=== PATIENT | female | born 1955 | race Caucasian/White ===

== ENCOUNTER 2017-05-13 11:10 | Emergency (ER) | payer MEDICAID ==
[~2017-05-13] VITALS: Ht 165.1 cm; Wt 72.6 kg
[2017-05-13 11:10] VITALS: BP 119/77; PULSE 67; RESP 12; TEMP 98.1; O2SAT 99
[~2017-05-13 11:10] MED LIST: ALPR0.2583 PO; AMLO5TAB4 PO; CIME300T55 PO; DIAZ-60 PO; FURO-150 PO; NORCO5 PO; OXYB5TAB PO; POTA10CA14 PO; PRED20TA PO; PROP20TA7 PO; SOM350 PO
[2017-05-13 11:52] LABS: CALCIUM 9.3 mg/dL (8.4-11.0); CREATININE 1.06 mg/dL (0.55-1.30)
[2017-05-13 11:55] LABS: PROTHROMBIN TIME 10.4 SECS (9.5-12.5)
[2017-05-13 11:57] LABS: ALBUMIN 3.8 g/dL (3.4-4.8); TOTAL BILIRUBIN 0.3 mg/dL (0.0-1.0)
[2017-05-13 11:58] LABS: BASOPHILS % (AUTO) 1.1 % (0.0-2.0); EOSINOPHILS # (AUTO) 0.2 K/uL (0.0-0.4); EOSINOPHILS % (AUTO) 5.3 % (0.0-4.0); HEMOGLOBIN 11.8 g/dL (12.0-16.0); LYMPHOCYTES # (AUTO) 1.3 K/uL (1.0-5.5); LYMPHOCYTES % (AUTO) 37.6 % (20.5-51.5); MEAN CORPUSCULAR HEMOGLOBIN 31 pg (27-31); MEAN CORPUSCULAR HGB CONC 34 % (32-36); MEAN CORPUSCULAR VOLUME 91 fL (79.0-98.0); MONOCYTES # (AUTO) 0.3 K/uL (0.0-1.0); MONOCYTES % (AUTO) 7.6 % (1.7-9.3); NEUTROPHILS # (AUTO) 1.7 K/uL (1.8-7.7); NEUTROPHILS % (AUTO) 48.4 % (40.0-70.0); PLATELET COUNT (AUTO) 143 K/uL (130-430); RED BLOOD CELL COUNT(AUTO) 3.84 MIL/uL (4.2-6.2); RED CELL DISTRIBUTION WIDTH 12.5 % (9.0-15.0); WHITE BLOOD COUNT (AUTO) 3.5 K/uL (4.8-10.8)
[2017-05-13] MEDS ORDERED: IPRATROPIUM/ALBUTEROL SULFATE 3 ML AMPUL.NEB INH ONE (12:30)
[2017-05-13] MEDS ORDERED: methylPREDNISolone SOD SUCC/PF 62.5 MG/ML VIAL IVP ONE (13:00)
[2017-05-13] MEDS ORDERED: NITROGLYCERIN 0.4 MG TAB.SUBL SL ONE (14:45)
[2017-05-13] MEDS ORDERED: GLUCAGON,HUMAN RECOMBINANT 1 MG VIAL IVP ONE (15:15)
[2017-05-13] MEDS ORDERED: LORazepam 2 MG/ML VIAL (FOR ER USE) IVP ONE (16:45)
[2017-05-13 18:40] VITALS: BP 124/57; PULSE 88; RESP 16; TEMP 97.9; O2SAT 97
== END 2017-05-13 18:40 | disposition short-term general hospital (02) ==
LOC: SED 11:28 → SIC 15:09 → UNDOADMIN 15:09 → UNDODISIN 16:50 → SED 18:40
DX: T17.200A Unspecified foreign body in pharynx causing asphyxiation, initial encounter (principal); K21.9 Gastro-esophageal reflux disease without esophagitis; I10 Essential (primary) hypertension; G35 Multiple sclerosis; X58.XXXA Exposure to other specified factors, initial encounter; Y93.89 Activity, other specified; Y92.89 Other specified places as the place of occurrence of the external cause; Y99.8 Other external cause status
CPT/HCPCS: 36415; 70360; 70486; 70490; 71010; 71250; 80053; 82550; 82962; 83605; 83880; 84145; 84484; 85025; 85379; 85610; 85730; 93005; 94640; 96374; 96375; 99285; J2060; J2930

== ENCOUNTER 2017-12-06 15:52 | Emergency (ER) | payer MEDICAID ==
[~2017-12-06] VITALS: Ht 165.1 cm; Wt 71.2 kg
[~2017-12-06 15:52] MED LIST changes: -ALPR0.2583 PO; -FURO-150 PO; -POTA10CA14 PO; -PROP20TA7 PO
[2017-12-06 16:00] VITALS: BP_SYST 101
[2017-12-06 17:10] LABS: BILIRUBIN,URINE 1+ (NEGATIVE); BLOOD, URINE NEGATIVE (NEGATIVE); CLARITY/URINE CLEAR (CLEAR); COLOR,URINE YELLOW (YELLOW); GLUCOSE,URINE NEGATIVE (NEGATIVE); KETONES,URINE NEGATIVE (NEGATIVE); LEUKOCYTE ESTERASE ,URINE NEGATIVE (NEGATIVE); NITRITE, URINE NEGATIVE (NEGATIVE); PH,URINE 5.5 (5.0-8.0); PROTEIN URINE NEGATIVE (NEGATIVE); UROBILINOGEN,URINE 0.2 (0.2-1.0)
[2017-12-06] MEDS ORDERED: KETOROLAC TROMETHAMINE 30 MG VIAL IM ONE (18:30)
[2017-12-06 19:34] VITALS: BP_SYST 112
== END 2017-12-06 19:28 | disposition home or self-care (01) ==
LOC: SED 15:52
DX: M54.6 Pain in thoracic spine (principal); M54.5 Low back pain; R39.81 Functional urinary incontinence; K21.9 Gastro-esophageal reflux disease without esophagitis; I10 Essential (primary) hypertension; Z79.899 Other long term (current) drug therapy; Z88.8 Allergy status to other drugs, medicaments and biological substances
CPT/HCPCS: 71045; 71100; 72100; 81003; 96372; 99285; J1885

== ENCOUNTER 2018-03-25 14:36 | Emergency (ER) | payer MEDICAID ==
[~2018-03-25] VITALS: Ht 165.1 cm; Wt 68.9 kg
[~2018-03-25 14:36] MED LIST changes: -DIAZ-60 PO; +DIAZ5TAB PO
[2018-03-25 14:47] VITALS: BP_SYST 97
--- NOTE | 2018-03-25 14:53 | NUR ---
Patient to ER bed 6 to gown for evaluation. Side rails up. Report given to Janey SALGUERO.
--- NOTE | 2018-03-25 14:57 | NUR ---
Pt complains of pain to left jaw for for a week. Pt states pain would come and go causing left side of face to hurt. Noted abcess to left side of mouth. Pt denies N/V or fever. No other injuries/complaints per patient or noted.
--- NOTE | 2018-03-25 14:58 | NUR ---
ER Dr. Lazo at bedside examining patient.
[2018-03-25] MEDS ORDERED: KETOROLAC TROMETHAMINE 60 MG/2 ML VIAL IM ONE (15:15)
[2018-03-25 15:35] LABS: BASOPHILS # (AUTO) 0.1 K/uL (0.0-0.2); BASOPHILS % (AUTO) 1.5 % (0.0-2.0); EOSINOPHILS # (AUTO) 0.1 K/uL (0.0-0.4); EOSINOPHILS % (AUTO) 2.5 % (0.0-4.0); HEMOGLOBIN 12.6 g/dL (12.0-16.0); LYMPHOCYTES # (AUTO) 1.2 K/uL (1.0-5.5); LYMPHOCYTES % (AUTO) 26.2 % (20.5-51.5); MEAN CORPUSCULAR HEMOGLOBIN 32 pg (27-31); MEAN CORPUSCULAR HGB CONC 34 % (32-36); MEAN CORPUSCULAR VOLUME 93 fL (79.0-98.0); MONOCYTES # (AUTO) 0.2 K/uL (0.0-1.0); MONOCYTES % (AUTO) 5.3 % (1.7-9.3); NEUTROPHILS # (AUTO) 2.8 K/uL (1.8-7.7); NEUTROPHILS % (AUTO) 64.5 % (40.0-70.0); PLATELET COUNT (AUTO) 195 K/uL (130-430); RED BLOOD CELL COUNT(AUTO) 3.99 MIL/uL (4.2-6.2); RED CELL DISTRIBUTION WIDTH 12.8 % (9.0-15.0); WHITE BLOOD COUNT (AUTO) 4.4 K/uL (4.8-10.8)
[2018-03-25 15:40] LABS: CALCIUM 9.5 mg/dL (8.4-11.0); CREATININE 1.04 mg/dL (0.55-1.30); POTASSIUM 3.9 mmol/L (3.5-5.1)
[2018-03-25 15:48] LABS: ALBUMIN 3.9 g/dL (3.4-4.8); TOTAL BILIRUBIN 0.4 mg/dL (0.0-1.0)
[2018-03-25] MEDS ORDERED: ONDANSETRON HCL 4 MG/2 ML VIAL ONE (15:52)
--- NOTE | 2018-03-25 15:54 | NUR ---
Medication was given, pt tolerated well. No adverse reaction, will continue to monitor.
[2018-03-25] MEDS ORDERED: ONDANSETRON HCL 4 MG/2 ML VIAL IVP ONE (16:00)
[2018-03-25] MEDS ORDERED: ONDANSETRON HCL 4 MG/2 ML VIAL IM ONE (16:00)
[2018-03-25 16:05] VITALS: BP_SYST 104
--- NOTE | 2018-03-25 16:05 | NUR ---
Patient given written and verbal discharge instructions and verbalizes understanding. ER MD discussed with patient the results and treatment provided. Patient in stable condition. ID arm band removed. Rx of Tylenol with codeine and Penicillin given. Patient educated on pain management and to follow up with PMD. Pain Scale 0. Opportunity for questions provided and answered. Medication side effect fact sheet provided.
== END 2018-03-25 16:05 | disposition home or self-care (01) ==
LOC: SED 14:36
DX: K02.9 Dental caries, unspecified (principal); R51 Headache; K21.9 Gastro-esophageal reflux disease without esophagitis; I10 Essential (primary) hypertension; M19.90 Unspecified osteoarthritis, unspecified site; Z90.49 Acquired absence of other specified parts of digestive tract; Z88.8 Allergy status to other drugs, medicaments and biological substances; Z79.899 Other long term (current) drug therapy
CPT/HCPCS: 36415; 80053; 85025; 96372; 99284; J1885; J2405

== ENCOUNTER 2018-11-09 13:12 | Emergency (ER) | payer MEDICARE, MEDICAID ==
[~2018-11-09] VITALS: Ht 165.1 cm; Wt 68.0 kg
[~2018-11-09 13:12] MED LIST changes: +LEVO500T89 PO
[2018-11-09 13:26] VITALS: BP_SYST 121
[2018-11-09] MEDS ORDERED: KETOROLAC TROMETHAMINE 30 MG VIAL IM ONE (14:00)
[2018-11-09 15:25] VITALS: BP_SYST 120
== END 2018-11-09 15:25 | disposition home or self-care (01) ==
LOC: SED 13:12
DX: S39.012A Strain of muscle, fascia and tendon of lower back, initial encounter (principal); K21.9 Gastro-esophageal reflux disease without esophagitis; I10 Essential (primary) hypertension; M19.90 Unspecified osteoarthritis, unspecified site; Z90.49 Acquired absence of other specified parts of digestive tract; Z88.8 Allergy status to other drugs, medicaments and biological substances; Z79.899 Other long term (current) drug therapy; X58.XXXA Exposure to other specified factors, initial encounter; Y93.89 Activity, other specified; Y92.89 Other specified places as the place of occurrence of the external cause; Y99.8 Other external cause status
CPT/HCPCS: 96372; 99283; J1885

== ENCOUNTER 2019-01-21 22:26 | Inpatient (IN) | payer MEDICAID, MEDICARE ==
[~2019-01-21] VITALS: Ht 165.1 cm; Wt 68.0 kg
[2019-01-21 22:26] VITALS: BP_SYST 136
[2019-01-21] MEDS ORDERED: NACL 0.9% 1,000 ML IV ONE (22:45)
[2019-01-21 23:37] LABS: ALANINE AMINOTRANSFERASE 64 U/L (12-78); ANION GAP 13 (5-15); ASPARTATE AMINOTRANSFERASE 77 U/L (10-37); CALCIUM 9.7 mg/dL (8.4-11.0); CHLORIDE 99 mmol/L (98-107); CREATININE 0.88 mg/dL (0.55-1.30); GLUCOSE 88 mg/dL (70-99); POTASSIUM 4.1 mmol/L (3.5-5.1); SODIUM SERUM 137 mmol/L (136-145); TOTAL BILIRUBIN 0.8 mg/dL (0.0-1.0); UREA NITROGEN, BLOOD 24 mg/dL (8-21)
[2019-01-21 23:40] LABS: BASOPHILS % (AUTO) 0.6 % (0.0-2.0); EOSINOPHILS % (AUTO) 0.9 % (0.0-4.0); GFR AFRICAN AMERICAN 83 mL/min (>90); HEMATOCRIT 38.1 % (36-48); HEMOGLOBIN 12.5 g/dL (12.0-16.0); LYMPHOCYTES # (AUTO) 0.7 K/uL (1.0-5.5); LYMPHOCYTES % (AUTO) 16.1 % (20.5-51.5); MEAN CORPUSCULAR HEMOGLOBIN 30 pg (27-31); MEAN CORPUSCULAR HGB CONC 33 % (32-36); MEAN CORPUSCULAR VOLUME 92 fL (79.0-98.0); MONOCYTES # (AUTO) 0.3 K/uL (0.0-1.0); MONOCYTES % (AUTO) 7.3 % (1.7-9.3); NEUTROPHILS # (AUTO) 3.2 K/uL (1.8-7.7); NEUTROPHILS % (AUTO) 75.1 % (40.0-70.0); PLATELET COUNT (AUTO) 196 K/uL (130-430); RED BLOOD CELL COUNT(AUTO) 4.14 MIL/uL (4.2-6.2); RED CELL DISTRIBUTION WIDTH 13.6 % (9.0-15.0); WHITE BLOOD COUNT (AUTO) 4.3 K/uL (4.8-10.8)
[2019-01-21] MEDS ORDERED: MORPHINE 4 MG/ML INJ. SYRINGE IVP ONE (23:45)
[2019-01-22 01:45] LABS: BILIRUBIN,URINE NEGATIVE (NEGATIVE); BLOOD, URINE NEGATIVE (NEGATIVE); CLARITY/URINE CLEAR (CLEAR); COLOR,URINE YELLOW (YELLOW); GLUCOSE,URINE NEGATIVE (NEGATIVE); KETONES,URINE 2+ (NEGATIVE); LEUKOCYTE ESTERASE ,URINE NEGATIVE (NEGATIVE); NITRITE, URINE NEGATIVE (NEGATIVE); PROTEIN URINE NEGATIVE (NEGATIVE); UROBILINOGEN,URINE 0.2 (0.2-1.0)
[2019-01-22 01:51] LABS: BENZODIAZEPINE, URINE POSITIVE (NEG <=150); METHAMPHETAMINES SCREEN,URINE POSITIVE (NEG <=500); OPIATE, URINE POSITIVE (NEG <=100); URINE AMPHETAMINE POSITIVE (NEG <=500)
[2019-01-22 01:52] LABS: BARBITURATE, URINE NEGATIVE (NEG <=200); CANNABINOID, URINE NEGATIVE (NEG <=50); COCAINE, URINE NEGATIVE (NEG <=150); PHENCYCLIDINE SCREEN,URINE NEGATIVE (NEG <=25); UR TRICYCLIC ANTIDEPRESSANTS NEGATIVE (NEG <=300); URINE METHADONE NEGATIVE (NEG <=200); URINE OXYCODONE SCREEN NEGATIVE (NEG <=100); URINE PROPOXYPHENE SCREEN NEGATIVE (NEG <=300)
[2019-01-22] MEDS ORDERED: FLUMAZENIL 0.1 MG/ML IVP ONE ×2 (02:00→02:45)
[2019-01-22] MEDS ORDERED: NACL 0.9% 1,000 ML IV ONE (02:15)
[2019-01-22 02:23] LABS: ALCOHOL, BLOOD < 3 mg/dL (<10)
[2019-01-22 02:24] LABS: ACETAMINOPHEN < 1 ug/mL (1-30)
[2019-01-22] MEDS: D5NS 1,000 ML IV SCH ×2 (04:39→15:19)
[2019-01-22 04:46] VITALS: BP_SYST 130
[2019-01-22 08:00] VITALS: BP_SYST 146
[2019-01-22 11:29] VITALS: BP_SYST 123
[2019-01-22] MEDS: MORPHINE 2 MG/ML INJ. SYRINGE IVP PRN (15:17)
[2019-01-22 15:48] VITALS: BP_SYST 153
[2019-01-22] MEDS ORDERED: LEVOFLOXACIN 500 MG TABLET PO ONE (16:45)
[2019-01-22 20:00] VITALS: BP_SYST 151
[2019-01-22] MEDS: OXYBUTYNIN CHLORIDE 5 MG TABLET PO SCH (21:23)
[2019-01-22] MEDS: metroNIDAZOLE 500 MG TABLET PO SCH (21:23)
[2019-01-22] MEDS: POLYETHYLENE GLYCOL 3350, 17 GM/ POWD.PACK PO SCH (21:25)
[2019-01-23 00:37] VITALS: BP_SYST 154
[2019-01-23] MEDS: D5NS 1,000 ML IV SCH ×3 (02:09→18:45)
[2019-01-23 08:05] VITALS: BP_SYST 151
[2019-01-23] MEDS: PANTOPRAZOLE SODIUM 40 MG TAB PO SCH (08:23)
[2019-01-23] MEDS: metroNIDAZOLE 500 MG TABLET PO SCH ×2 (08:23→22:51)
[2019-01-23] MEDS: PREDNISONE 20 MG TABLET PO SCH (08:23)
[2019-01-23] MEDS: POLYETHYLENE GLYCOL 3350, 17 GM/ POWD.PACK PO SCH ×2 (08:24→22:51)
[2019-01-23] MEDS: amLODIPine BESYLATE 5 MG TABLET PO SCH (08:24)
[2019-01-23] MEDS: OXYBUTYNIN CHLORIDE 5 MG TABLET PO SCH ×2 (08:24→22:51)
[2019-01-23] MEDS: LEVOFLOXACIN 500 MG TABLET PO SCH (10:32)
[2019-01-23 12:43] VITALS: BP_SYST 145
[2019-01-23 15:34] VITALS: BP_SYST 144
[2019-01-23] MEDS ORDERED: COMMUNICATION ORDER XX ONE (17:15)
[2019-01-23 19:25] VITALS: BP_SYST 134
[2019-01-23] MEDS: MICONAZOLE NITRATE 85 GM TP SCH (21:00)
[2019-01-23] MEDS: DIAZEPAM 5 MG TABLET (VALIUM) PO SCH (22:51)
[2019-01-23] MEDS: MORPHINE 2 MG/ML INJ. SYRINGE IVP PRN (23:35)
[2019-01-24 01:42] VITALS: BP_SYST 147
[2019-01-24] MEDS: D5NS 1,000 ML IV SCH ×2 (05:15→14:45)
[2019-01-24 08:05] VITALS: BP_SYST 138
[2019-01-24] MEDS: PREDNISONE 20 MG TABLET PO SCH (08:28)
[2019-01-24] MEDS: amLODIPine BESYLATE 5 MG TABLET PO SCH (08:28)
[2019-01-24] MEDS: PANTOPRAZOLE SODIUM 40 MG TAB PO SCH (08:28)
[2019-01-24] MEDS: metroNIDAZOLE 500 MG TABLET PO SCH ×2 (08:29→21:48)
[2019-01-24] MEDS: POLYETHYLENE GLYCOL 3350, 17 GM/ POWD.PACK PO SCH ×2 (08:29→21:48)
[2019-01-24] MEDS: OXYBUTYNIN CHLORIDE 5 MG TABLET PO SCH ×2 (08:29→21:48)
[2019-01-24] MEDS: LEVOFLOXACIN 500 MG TABLET PO SCH (11:04)
[2019-01-24 11:24] VITALS: BP_SYST 146
[2019-01-24 15:29] VITALS: BP_SYST 141
[2019-01-24 19:20] VITALS: BP_SYST 140
[2019-01-24] MEDS: MICONAZOLE NITRATE 85 GM TP SCH (21:48)
[2019-01-25 01:02] VITALS: BP_SYST 138
[2019-01-25 08:00] VITALS: BP_SYST 135
[2019-01-25] MEDS: metroNIDAZOLE 500 MG TABLET PO SCH ×2 (08:48→20:17)
[2019-01-25] MEDS: PREDNISONE 20 MG TABLET PO SCH (08:49)
[2019-01-25] MEDS: PANTOPRAZOLE SODIUM 40 MG TAB PO SCH (08:49)
[2019-01-25] MEDS: OXYBUTYNIN CHLORIDE 5 MG TABLET PO SCH ×2 (08:49→20:17)
[2019-01-25] MEDS: POLYETHYLENE GLYCOL 3350, 17 GM/ POWD.PACK PO SCH ×3 (08:50→20:19)
[2019-01-25] MEDS: amLODIPine BESYLATE 5 MG TABLET PO SCH (08:51)
[2019-01-25] MEDS: MICONAZOLE NITRATE 85 GM TP SCH ×2 (08:52→20:21)
[2019-01-25 12:00] VITALS: BP_SYST 132
[2019-01-25] MEDS: LEVOFLOXACIN 500 MG TABLET PO SCH (12:28)
[2019-01-25 16:00] VITALS: BP_SYST 139
[2019-01-25 19:45] VITALS: BP_SYST 151
[2019-01-26 00:34] VITALS: BP_SYST 135
[2019-01-26 08:00] VITALS: BP_SYST 142
[2019-01-26] MEDS: POLYETHYLENE GLYCOL 3350, 17 GM/ POWD.PACK PO SCH (09:00)
[2019-01-26] MEDS: PANTOPRAZOLE SODIUM 40 MG TAB PO SCH (09:17)
[2019-01-26] MEDS: PREDNISONE 20 MG TABLET PO SCH (09:17)
[2019-01-26] MEDS: metroNIDAZOLE 500 MG TABLET PO SCH (09:17)
[2019-01-26] MEDS: OXYBUTYNIN CHLORIDE 5 MG TABLET PO SCH (09:17)
[2019-01-26] MEDS: MICONAZOLE NITRATE 85 GM TP SCH (09:18)
[2019-01-26] MEDS: amLODIPine BESYLATE 5 MG TABLET PO SCH (09:18)
[2019-01-26] MEDS: DIAZEPAM 5 MG TABLET (VALIUM) PO SCH (09:19)
[2019-01-26] MEDS: LEVOFLOXACIN 500 MG TABLET PO SCH (09:20)
[2019-01-26 12:00] VITALS: BP_SYST 135
[2019-01-26 14:36] VITALS: BP_SYST 141
[2019-01-26 16:00] VITALS: BP_SYST 143
== END 2019-01-26 19:05 | disposition home health service (06) | DRG 249 ==
LOC: SED 22:26 → STU 01-22 02:32 → SMU 01-22 11:48
PROVIDERS: ADMIT Internal Medicine; ATTEND Internal Medicine
DX: K52.9 Noninfective gastroenteritis and colitis, unspecified (principal); G35 Multiple sclerosis; F15.129 Other stimulant abuse with intoxication, unspecified; R63.0 Anorexia; H35.30 Unspecified macular degeneration; I10 Essential (primary) hypertension; R63.4 Abnormal weight loss; K21.9 Gastro-esophageal reflux disease without esophagitis; M19.90 Unspecified osteoarthritis, unspecified site; M41.9 Scoliosis, unspecified; Z68.25 Body mass index [BMI] 25.0-25.9, adult; E86.0 Dehydration; Z90.49 Acquired absence of other specified parts of digestive tract; Z88.9 Allergy status to unspecified drugs, medicaments and biological substances
CPT/HCPCS: 36415; 70450-TC; 80053; 80307; 81003; 82607; 83605; 84443-TC; 84484; 85025; 87040-TC; 87086; 96361; 96374; 96375; 97110-GP; 97116-GP; 97530-GP; 99285; G0480; G0481; G0482; J2270; J3490; J7042; J7512

== ENCOUNTER 2019-09-30 02:02 | Emergency (ER) | payer MEDICAID, MEDICARE, OTHER ==
[~2019-09-30] VITALS: Ht 160 cm; Wt 59.4 kg
[2019-09-30 02:33] VITALS: BP_SYST 130
--- NOTE | 2019-09-30 02:36 | NUR ---
Patient triaged and placed on EMS gurney. VSS and patient appears in no acute distress at this time. Accompanied by EMS, awaiting available bed, and MD notified of need for MSE.
--- NOTE | 2019-09-30 02:54 | NUR ---
Patient to ER bed 04 for evaluation. Side rails up.
--- NOTE | 2019-09-30 02:55 | NUR ---
Pt BIB EMS from home with c/o redness and pain to bilateral hands. Pt A&Ox4. Pt states history of multiple sclerosis. Pt states "this is probably a flare up from my MS." Pt states pain 6/10 to bilateral hands. Upon assessment, pt presents with red discoloration to all ten finger tips. Pt denies SOB, nausea, vomiting, fever, chills and chest pain. Pt has clear bilateral breath sounds with no use of accessory muscles. Will continue to monitor.
--- NOTE | 2019-09-30 03:45 | NUR ---
ER at bedside examining patient.
[2019-09-30] MEDS ORDERED: IPRATROPIUM/ALBUTEROL SULFATE 3 ML AMPUL.NEB (DUONEB) INH ONE (04:00)
--- NOTE | 2019-09-30 04:10 | NUR ---
lab at bedside.
[2019-09-30 04:38] LABS: HEMATOCRIT 37.1 % (36-48); HEMOGLOBIN 12.1 g/dL (12.0-16.0); MEAN CORPUSCULAR HEMOGLOBIN 30 pg (27-31); MEAN CORPUSCULAR HGB CONC 33 % (32-36); MEAN CORPUSCULAR VOLUME 93 fL (79.0-98.0); PLATELET COUNT (AUTO) 164 K/uL (130-430); RED CELL DISTRIBUTION WIDTH 14.9 % (9.0-15.0); WHITE BLOOD COUNT (AUTO) 2.7 K/uL (4.8-10.8)
[2019-09-30 04:43] LABS: CALCIUM 9.5 mg/dL (8.4-11.0); CREATININE 0.95 mg/dL (0.55-1.30)
[2019-09-30 04:50] LABS: ALBUMIN 3.8 g/dL (3.4-4.8); TOTAL BILIRUBIN 0.7 mg/dL (0.0-1.0)
--- NOTE | 2019-09-30 04:59 | NUR ---
Pt provided warm blanket for comfort.
--- NOTE | 2019-09-30 05:13 | NUR ---
Pt assisted with ambulation to restroom in stable condition.
[2019-09-30 05:18] LABS: BASOPHILS % (MANUAL) 0 % (0-2); EOSINOPHILS % (MANUAL) 2 % (0-7); LYMPHOCYTES % (MANUAL) 30 % (20-46); MONOCYTES % (MANUAL) 12 % (0-11)
--- NOTE | 2019-09-30 06:22 | NUR ---
Pt requests jello. Per MD Nino, pt allowed jello consumption. Jello provided to pt.
--- NOTE | 2019-09-30 06:50 | NUR ---
ER Dr. Nino at bedside explaining results to patient.
[2019-09-30 07:26] VITALS: BP_SYST 140
--- NOTE | 2019-09-30 07:26 | NUR ---
Patient given written and verbal discharge instructions and verbalizes understanding. ER MD Nino discussed with patient the results and treatment provided. Patient in stable condition. ID arm band removed. No Rx given. Patient educated on pain management and to follow up with PMD. Pain Scale 3/10. Opportunity for questions provided and answered. Medication side effect fact sheet provided.
== END 2019-09-30 07:26 | disposition home or self-care (01) ==
LOC: SED 02:02
DX: I73.00 Raynaud's syndrome without gangrene (principal); G35 Multiple sclerosis; I10 Essential (primary) hypertension; K21.9 Gastro-esophageal reflux disease without esophagitis; Z88.8 Allergy status to other drugs, medicaments and biological substances; Z79.899 Other long term (current) drug therapy
CPT/HCPCS: 36415; 71045; 80053; 85007; 85027; 93005; 94640; 99285; J7620

== ENCOUNTER 2020-02-13 21:34 | Inpatient (IN) | payer OTHER ==
[~2020-02-13] VITALS: Ht 165.1 cm; Wt 53.5 kg
[~2020-02-13 21:34] MED LIST changes: +CEPH-568 PO; +LEVE500T53 PO; -LEVO500T89 PO; -SOM350 PO
--- NOTE | 2020-02-13 21:46 | NUR ---
Placed in room 1 . Placed on electronic device monitor, blood pressure machine and pulse oximeter. To gown for exam. Side rails up. Report given to IRVIN SALGUERO.
[2020-02-13 21:49] VITALS: BP_SYST 92
--- NOTE | 2020-02-13 22:03 | NUR ---
RECEIVED AND IN ROOM, VICENTA TO ASSUME CARE.
--- NOTE | 2020-02-13 22:04 | NUR ---
EKG IN PROGRESS
--- NOTE | 2020-02-13 22:30 | NUR ---
PLACED IN HARD C-COLLAR/TOLERATED WELL. PT IV HL 20 GUAGE RT AC. LABS SENT
--- NOTE | 2020-02-13 22:47 | NUR ---
SENT TO CAT SCAN
[2020-02-13 22:53] LABS: BASOPHILS % (AUTO) 0.8 % (0.0-2.0); EOSINOPHILS # (AUTO) 0.1 K/uL (0.0-0.4); EOSINOPHILS % (AUTO) 1.4 % (0.0-4.0); HEMATOCRIT 40.8 % (36-48); HEMOGLOBIN 13.5 g/dL (12.0-16.0); LYMPHOCYTES # (AUTO) 1.2 K/uL (1.0-5.5); LYMPHOCYTES % (AUTO) 30.8 % (20.5-51.5); MEAN CORPUSCULAR HEMOGLOBIN 31 pg (27-31); MEAN CORPUSCULAR HGB CONC 33 % (32-36); MEAN CORPUSCULAR VOLUME 94 fL (79.0-98.0); MONOCYTES # (AUTO) 0.3 K/uL (0.0-1.0); MONOCYTES % (AUTO) 8.4 % (1.7-9.3); NEUTROPHILS # (AUTO) 2.3 K/uL (1.8-7.7); NEUTROPHILS % (AUTO) 58.6 % (40.0-70.0); PLATELET COUNT (AUTO) 124 K/uL (130-430); RED BLOOD CELL COUNT(AUTO) 4.35 MIL/uL (4.2-6.2); WHITE BLOOD COUNT (AUTO) 3.9 K/uL (4.8-10.8)
--- NOTE | 2020-02-13 22:56 | NUR ---
BACK FROM CT ,NO CHANGE IN MENTATION, PERRL, AAOX3
[2020-02-13 23:05] LABS: ANION GAP 6 (5-15); CALCIUM 10.1 mg/dL (8.4-11.0); CHLORIDE 102 mmol/L (98-107); CREATININE 1.08 mg/dL (0.55-1.30); GLUCOSE 88 mg/dL (70-99); POTASSIUM 3.7 mmol/L (3.5-5.1); PROTHROMBIN TIME 9.7 SECS (9.5-12.5); SODIUM SERUM 139 mmol/L (136-145); UREA NITROGEN, BLOOD 24 mg/dL (8-21)
[2020-02-13 23:21] LABS: ALANINE AMINOTRANSFERASE 43 U/L (12-78); ALBUMIN 4.5 g/dL (3.4-4.8); ASPARTATE AMINOTRANSFERASE 87 U/L (10-37); FREE T4 (FREE THYROXINE) 1.4 ng/dl (0.8-1.5); THYROID STIMULATING HORMONE 1.79 uIu/mL (0.36-3.74); TOTAL BILIRUBIN 1.2 mg/dL (0.0-1.0)
[2020-02-13 23:22] LABS: ACETAMINOPHEN < 1 ug/mL (1-30); ALCOHOL, BLOOD < 3 mg/dL (<10); GFR AFRICAN AMERICAN 65 mL/min (>90)
[2020-02-14 00:08] LABS: CKMB RELATIVE INDEX 3.8 (0.0-2.9); CREATINE KINASE MB 72.5 ng/mL (0-3.6)
--- NOTE | 2020-02-14 00:34 | NUR ---
CELIAAR REPORT TO MIGUEL
[2020-02-14] MEDS ORDERED: NACL 0.9% 1,000 ML IV ONE (01:15)
--- NOTE | 2020-02-14 01:41 | NUR ---
PT REMAINS IN STABLE CONDITION WITH URINE SAMPLE SENT TO LAB
[2020-02-14] MEDS ORDERED: ACETAMINOPHEN 325 MG TABLET PO PRN (01:45)
[2020-02-14] MEDS ORDERED: LORazepam 2 MG/ML VIAL IVP PRN (01:45)
[2020-02-14] MEDS ORDERED: MORPHINE 2 MG/ML INJ. SYRINGE IVP PRN ×2 (01:45)
[2020-02-14] MEDS ORDERED: methylPREDNISolone SOD SUCC 40 MG/ML VIAL IVP ONE (01:45)
[2020-02-14 01:46] LABS: BILIRUBIN,URINE NEGATIVE (NEGATIVE); BLOOD, URINE 1+ (NEGATIVE); CLARITY/URINE CLEAR (CLEAR); COLOR,URINE YELLOW (YELLOW); GLUCOSE,URINE NEGATIVE (NEGATIVE); KETONES,URINE NEGATIVE (NEGATIVE); LEUKOCYTE ESTERASE ,URINE NEGATIVE (NEGATIVE); NITRITE, URINE NEGATIVE (NEGATIVE); PROTEIN URINE NEGATIVE (NEGATIVE); UROBILINOGEN,URINE 0.2 (0.2-1.0)
[2020-02-14 02:03] LABS: BARBITURATE, URINE NEGATIVE (NEG <=200); BENZODIAZEPINE, URINE POSITIVE (NEG <=150); CANNABINOID, URINE NEGATIVE (NEG <=50); COCAINE, URINE NEGATIVE (NEG <=150); METHAMPHETAMINES SCREEN,URINE POSITIVE (NEG <=500); OPIATE, URINE NEGATIVE (NEG <=100); PHENCYCLIDINE SCREEN,URINE NEGATIVE (NEG <=25); UR TRICYCLIC ANTIDEPRESSANTS NEGATIVE (NEG <=300); URINE AMPHETAMINE POSITIVE (NEG <=500); URINE METHADONE NEGATIVE (NEG <=200); URINE OXYCODONE SCREEN NEGATIVE (NEG <=100); URINE PROPOXYPHENE SCREEN NEGATIVE (NEG <=300)
[2020-02-14 02:15] LABS: BACTERIA,URINE FEW /HPF (None Seen); WBC,URINE 0-3 /HPF (0-3)
[2020-02-14] MEDS ORDERED: methylPREDNISolone SOD SUCC 40 MG/ML VIAL ONE (02:46)
--- NOTE | 2020-02-14 02:50 | NUR ---
VSS WITH HR REMAINS BRADYCARDIC AT HIGH 40'S TO LOW 50'S HOWEVER ASYMPTOMATIC
--- NOTE | 2020-02-14 03:55 | NUR ---
REPOSITIONED PT FOR COMFORT AND PRESSURE RELIEF
--- NOTE | 2020-02-14 04:06 | NUR ---
LAB BEDSIDE FOR IN PT AM LAB DRAW
[2020-02-14 04:36] LABS: EOSINOPHILS # (AUTO) 0.1 K/uL (0.0-0.4); EOSINOPHILS % (AUTO) 3.8 % (0.0-4.0); HEMATOCRIT 36.5 % (36-48); HEMOGLOBIN 12.1 g/dL (12.0-16.0); LYMPHOCYTES # (AUTO) 1.1 K/uL (1.0-5.5); LYMPHOCYTES % (AUTO) 36.6 % (20.5-51.5); MEAN CORPUSCULAR HEMOGLOBIN 31 pg (27-31); MEAN CORPUSCULAR HGB CONC 33 % (32-36); MEAN CORPUSCULAR VOLUME 93 fL (79.0-98.0); MONOCYTES # (AUTO) 0.4 K/uL (0.0-1.0); MONOCYTES % (AUTO) 12.9 % (1.7-9.3); NEUTROPHILS # (AUTO) 1.4 K/uL (1.8-7.7); NEUTROPHILS % (AUTO) 45.7 % (40.0-70.0); PLATELET COUNT (AUTO) 96 K/uL (130-430); RED BLOOD CELL COUNT(AUTO) 3.93 MIL/uL (4.2-6.2); RED CELL DISTRIBUTION WIDTH 14.2 % (9.0-15.0)
[2020-02-14 05:02] LABS: ALBUMIN 3.5 g/dL (3.4-4.8); CALCIUM 9.4 mg/dL (8.4-11.0); CREATININE 0.95 mg/dL (0.55-1.30); POTASSIUM 3.2 mmol/L (3.5-5.1); TOTAL BILIRUBIN 0.8 mg/dL (0.0-1.0)
[2020-02-14 05:44] LABS: CKMB RELATIVE INDEX 3.7 (0.0-2.9)
--- NOTE | 2020-02-14 07:38 | NUR ---
Pt asleep at this time, VSS, no apparent distress noted
[2020-02-14] MEDS ORDERED: POTASSIUM CHLORIDE 40 MEQ, LIDOCAINE JECT 2% PF 100 MG 50 MG in NS 250 ML IV ONE (07:45)
[2020-02-14] MEDS: levETIRAcetam 500 MG TABLET PO SCH ×2 (09:53→22:15)
--- NOTE | 2020-02-14 09:59 | NUR ---
Patient will be admitted to care [facility]. Admitted to Tele unit. Will go to room 113B. Belongings list completed. Complete and up to date summary report printed. SBAR report to be given at bedside with opportunity for questions.
--- NOTE | 2020-02-14 10:07 | NUR ---
ADMISSION NOTE Received patient from ER via alejandro, received report from EDOUARD/ NOEMY. Patient admitted with diagnosis of ALTERED MENTAL STATUS. Patient oriented to hospital routine, call light, toileting and safety-patient verbalized understanding.
[2020-02-14 10:24] VITALS: BP_SYST 123
[2020-02-14 10:29] VITALS: BP_SYST 123
--- NOTE | 2020-02-14 11:29 | NUR ---
CONSULTATION PAGED/CALLED Reason for Consultation: [] AMS Person Who was Notified: [] TEXTED MD DIRECTLY Consulting Physician: [] DR Vannessa MATTA Truck Driving Instructor Specialty: [] NEURO Ordering Physician: [] DR LOVE
--- NOTE | 2020-02-14 11:47 | NUR ---
Spoke to Dr. Srivastava: Spoke to Dr. Srivastava over the phone. Notified MD of patient's anxiety. New order received. RN to input. Addendum: 02/15/20 at 0629 by Mary Jo Decker RN Wrong time: 02/14/2020 at 5985
--- NOTE | 2020-02-14 12:00 | NUR ---
nurse note Patient in bed, respirations even non labored, ivf running as ordered, bed in low and locked position, call light within reach
--- NOTE | 2020-02-14 13:30 | NUR ---
nurse note patient complaining of anxiety, requesting medication
[2020-02-14] MEDS: POTASSIUM CHLORIDE 10 MEQ in NACL 0.9% 1,000 ML IV SCH (15:35)
--- NOTE | 2020-02-14 15:38 | NUR ---
nurse note patient in bed, sleeping, respirations even non labored, bed in low and locked position, call light within reach, bed alarm on
[2020-02-14 15:52] VITALS: BP_SYST 106
[2020-02-14 16:00] VITALS: BP_SYST 123
--- NOTE | 2020-02-14 17:00 | NUR ---
nurse note patient in bed, respirations even, non labored, bed in low and locked position, call light within reach, bed alarm on
--- NOTE | 2020-02-14 18:19 | NUR ---
md rounds DR MOSS BEDSIDE EXAMINING PATIENT
--- NOTE | 2020-02-14 19:14 | NUR ---
closing note provided bedside sbar to night RN, patient in bed, respirations even non labored, bed in low and locked position, call light within reach, bed alarm on, ivf running as ordered, endorsed care to night RN
--- NOTE | 2020-02-14 19:30 | NUR ---
Initial note: Received report from pasquale RN. Patient is in bed resting. No signs of acute distress. Even, nonlabored breathing on room air. IV site is patent and intact. IV fluids infusing as ordered. Bed is locked at lowest position. Side rails up x2. Call light with patient. Seizure, safety, and fall precautions in place. Will continue plan of care.
[2020-02-14 20:00] VITALS: BP_SYST 131
[2020-02-14] MEDS: ONDANSETRON HCL 4 MG/2 ML VIAL IVP PRN (21:13)
--- NOTE | 2020-02-14 21:13 | NUR ---
Pain/Anxiety: Patient complained of moderate generalized pain and nausea. [place] 5-325 1 tab and Zofran 4mg IV push indicated. Educated patient on indications and side effects of medications. Patient verbalized understanding. Medication administered per MD order. Call light is with patient. Seizure, safety, and fall precautions in place. Will continue to monitor.
[2020-02-14] MEDS: HYDROcodone/ACETAMIN 5-325 MG TAB (NORCO/ VICODIN) PO PRN (21:14)
--- NOTE | 2020-02-14 23:47 | NUR ---
Spoke to Dr. Srivastava: Spoke to Dr. Srivastava over the phone. Notified MD of patient's anxiety. New order received. RN to input.
[2020-02-15] MEDS ORDERED: LORazepam 1 MG TABLET PO ONE
[2020-02-15 01:14] VITALS: BP_SYST 123
--- NOTE | 2020-02-15 02:00 | NUR ---
Rounds: Patient is in bed resting. No signs of acute distress. Breathing is even and nonlabored on room air. Call light is with patient. Safety and fall precautions in place. Will continue plan of care.
[2020-02-15] MEDS: HYDROcodone/ACETAMIN 5-325 MG TAB (NORCO/ VICODIN) PO PRN ×4 (03:26→21:23)
--- NOTE | 2020-02-15 03:35 | NUR ---
Pain: Patient complained of moderate generalized pain. [place] 5-325 1 tab indicated. Education provided regarding indications and side effects. Patient verbalized understanding. Medication administered per MD order. Call light is with patient. Safety, fall, seizure precautions in place. Will continue monitoring.
[2020-02-15] MEDS: POTASSIUM CHLORIDE 10 MEQ in NACL 0.9% 1,000 ML IV SCH ×4 (03:36→21:03)
[2020-02-15] MEDS ORDERED: KCL 20 mEq in 100 mL (PREMIX) 100 ML IV ONE (03:48)
--- NOTE | 2020-02-15 05:00 | NUR ---
Rounds: Patient is in bed resting. No acute distress. Respiration are even and nonlabored on room air. Call light is with patient. Seizure safety and fall precautions in place. Will continue plan of care.
--- NOTE | 2020-02-15 06:32 | NUR ---
Closing note: Patient is in bed resting. No acute distress. Respiration are even and nonlabored on room air. IV site is patent and intact. IVF infusing well. All needs met. Bed is locked at lowest position. Side rails up x2. Call light is with patient. Seizure safety and fall precautions in place. Will endorse care to dayshift RN.
[2020-02-15 08:50] LABS: BASOPHILS % (AUTO) 0.9 % (0.0-2.0); EOSINOPHILS % (AUTO) 1.4 % (0.0-4.0); HEMATOCRIT 33.5 % (36-48); LYMPHOCYTES # (AUTO) 1.5 K/uL (1.0-5.5); LYMPHOCYTES % (AUTO) 49.8 % (20.5-51.5); MEAN CORPUSCULAR HEMOGLOBIN 31 pg (27-31); MEAN CORPUSCULAR HGB CONC 33 % (32-36); MEAN CORPUSCULAR VOLUME 93 fL (79.0-98.0); MONOCYTES # (AUTO) 0.3 K/uL (0.0-1.0); MONOCYTES % (AUTO) 9.2 % (1.7-9.3); NEUTROPHILS # (AUTO) 1.2 K/uL (1.8-7.7); NEUTROPHILS % (AUTO) 38.7 % (40.0-70.0); PLATELET COUNT (AUTO) 111 K/uL (130-430); RED CELL DISTRIBUTION WIDTH 14.5 % (9.0-15.0)
[2020-02-15 08:59] LABS: CALCIUM 8.8 mg/dL (8.4-11.0); CREATININE 0.84 mg/dL (0.55-1.30)
[2020-02-15] MEDS: FAMOTIDINE 20 MG TABLET PO SCH (09:24)
[2020-02-15] MEDS: levETIRAcetam 500 MG TABLET PO SCH ×2 (09:24→20:33)
[2020-02-15] MEDS: PREDNISONE 20 MG TABLET PO SCH (09:24)
[2020-02-15 10:11] LABS: CKMB RELATIVE INDEX 3.3 (0.0-2.9); CREATINE KINASE MB 18.2 ng/mL (0-3.6)
[2020-02-15 12:19] VITALS: BP_SYST 129
--- NOTE | 2020-02-15 14:51 | NUR ---
alert, oriented, clear speech, claimed in pain, when asked where the pain was, " all over the place, can you imagine"? demands meds for muscle spasm, and anxiety " I am nervous, I am scared". NORCO one po given at 0915am. called [phone], [facility] about [facility] , the [facility] closed today 1500. c/o of pain, this time both here hands, one po [place] given appetite for breakfast 75%, lunch 25% because no upper denture claimed she cant walk , with minimal assistance, she out of bed, [place] [facility] [place] difficulty.
[2020-02-15] MEDS: LORazepam 1 MG TABLET PO PRN ×2 (15:12→23:39)
[2020-02-15] MEDS: BACLOFEN 10 MG TABLET PO SCH (15:13)
--- NOTE | 2020-02-15 15:55 | NUR ---
P.T. NOTES P.T. EVAL COMPLETED; REFER TO EVAL FOR DETAILS; Pt LIVES W/ SISTER, WILL BENEFIT W/ P.T. DURING ACUTE STAY, FWW FOR HOME USE.
[2020-02-15 16:15] VITALS: BP_SYST 133
--- NOTE | 2020-02-15 17:03 | NUR ---
1514 again, complained of pain, " all over my body, plus i have muscle spasm right now- despite the fact [facility] per [facility], scheduled at 2100, author took the liberty to give her first dose now One po [place] also , and Ativan 0.5mg given. " I am happy now, fell asleep afterwards". Encouraged to get out of bed, and uses bsc, with standby assist, as tolerated, compliant with care
--- NOTE | 2020-02-15 19:30 | NUR ---
OPENING NOTES RECEIVED SBAR REPORT FROM DAY SHIFT RN. PT RESTING IN BED, ALERT & ORIENTED X4. BREATHING EVEN AND UNLABORED TO ROOM AIR. NO S/S OF DISTRESS NOTED. IVF RUNNING ORDERED RATE, NO S/S OF INFILTRATION NOTED. PADDED SIDE RAILS UP. CALL LIGHT WITHIN REACH. SAFETY AND FALL PRECAUTIONS ARE IN PLACE. WILL CONTINUE TO MONITOR.
[2020-02-15 20:00] VITALS: BP_SYST 134
--- NOTE | 2020-02-15 20:33 | NUR ---
MEDICATION PASS SCHEDULED MEDICATIONS ADMINISTERED ORDERED. DISCUSSED MEDICATION ACTION AND POTENTIAL SIDE EFFECTS. PT VERBALIZED UNDERSTANDING. ASSISTED PT TO BEDSIDE COMMODE, PT BACK TO BED SAFELY. BREATHING EVEN AND UNLABORED TO ROOM AIR. BED ALARM ON, LOCKED IN LOWEST LEVEL. PADDED SIDE RAILS UP. CALL LIGHT WITHIN REACH. SAFETY AND FALL PRECAUTIONS ARE IN PLACE. WILL CONTINUE TO MONITOR.
--- NOTE | 2020-02-15 21:23 | NUR ---
PAIN/NORCO MEDICATION PT REPORTING GENERALIZED PAIN. ADMINISTERED NORCO ORDERED PRN. DISCUSSED MEDICATION ACTIONS AND POTENTIAL SIDE EFFECTS. PT VERBALIZED UNDERSTANDING. NO S/S OF SOB, BREATHING EVEN AND UNLABORED TO ROOM AIR. PADDED SIDE RAILS UP. BED ALARM ON. SAFETY AND FALL PRECAUTIONS MAINTAINED. WILL CONTINUE TO MONITOR.
--- NOTE | 2020-02-15 23:39 | NUR ---
ATIVAN/ANXIETY ADMINISTERED ATIVAN ORDERED PRN. DISCUSSED MEDICATION ACTIONS AND POTENTIAL SIDE EFFECTS. PT VERBALIZED UNDERSTANDING. BREATHING EVEN AND UNLABORED TO ROOM AIR. PADDED SIDE RAILS UP. BED ALARM ON, LOCKED IN LOWEST LEVEL. SAFETY AND FALL PRECAUTIONS MAINTAINED. WILL CONTINUE TO MONITOR.
--- NOTE | 2020-02-16 01:55 | NUR ---
RN ROUNDS PT RESTING IN BED. CHEST RISE AND FALL SYMMETRICAL. NO S/S OF DISTRESS NOTED AT THIS TIME. ASSISTED PT TO BESIDE COMMODE, PT BACK TO BED SAFELY. IVF RUNNING ORDERED RATE. NO S/S OF INFILTRATION NOTED. CALL LIGHT WITHIN REACH. BED ALARM ON. SAFETY AND FALL PRECAUTIONS ARE IN PLACE. WILL CONTINUE TO MONITOR.
[2020-02-16 02:27] VITALS: BP_SYST 138
--- NOTE | 2020-02-16 04:05 | NUR ---
RESTING PT RESTING IN BED. BREATHING EVEN AND UNLABORED TO ROOM AIR. NO S/S OF DISTRESS NOTED AT THIS TIME. IVF RUNNING ORDERED RATE. NO S/S OF INFILTRATION NOTED. CALL LIGHT WITHIN REACH. BED ALARM ON. SAFETY AND FALL PRECAUTIONS ARE IN PLACE. WILL CONTINUE TO MONITOR.
[2020-02-16] MEDS: POTASSIUM CHLORIDE 10 MEQ in NACL 0.9% 1,000 ML IV SCH ×2 (06:14→21:45)
--- NOTE | 2020-02-16 06:45 | NUR ---
CLOSING NOTES PT RESTING IN BED. BREATHING EVEN AND UNLABORED TO ROOM AIR. NO S/S OF DISTRESS NOTED. IVF RUNNING ORDERED RATE, NO S/S OF INFILTRATION NOTED. PADDED SIDE RAILS UP. CALL LIGHT WITHIN REACH. SAFETY AND FALL PRECAUTIONS ARE IN PLACE. ALL NEEDS ARE MET THROUGHOUT SHIFT. WILL CONTINUE TO MONITOR UNTIL ENDORSE TO DAY SHIFT RN.
[2020-02-16 08:00] VITALS: BP_SYST 143
--- NOTE | 2020-02-16 08:00 | NUR ---
awake,alert,c/o severe headache,BP elevated to 143/99,IVF continue infusing,give norco 1 tab po as prn order for pain needs attended.call light & personal items within pt reach,safety maintained.continue to monitor pt.
[2020-02-16 08:40] LABS: CALCIUM 8.9 mg/dL (8.4-11.0); CREATININE 0.88 mg/dL (0.55-1.30); POTASSIUM 4.1 mmol/L (3.5-5.1)
[2020-02-16] MEDS: levETIRAcetam 500 MG TABLET PO SCH ×2 (08:42→21:44)
[2020-02-16] MEDS: BACLOFEN 10 MG TABLET PO SCH ×2 (08:42→21:44)
[2020-02-16] MEDS: HYDROcodone/ACETAMIN 5-325 MG TAB (NORCO/ VICODIN) PO PRN ×3 (08:42→22:10)
[2020-02-16] MEDS: PREDNISONE 20 MG TABLET PO SCH (08:43)
[2020-02-16] MEDS: FAMOTIDINE 20 MG TABLET PO SCH (08:43)
[2020-02-16 09:05] LABS: CKMB RELATIVE INDEX 1.7 (0.0-2.9); CREATINE KINASE MB 4.3 ng/mL (0-3.6)
--- NOTE | 2020-02-16 10:00 | NUR ---
pt is anxious and asking for prn meds,give ativan 0.5mg po as prn order for anxiety.
[2020-02-16] MEDS: LORazepam 1 MG TABLET PO PRN ×2 (10:20→18:34)
--- NOTE | 2020-02-16 12:00 | NUR ---
c/o nausea,give zofran 4 mg IV as prn order for nausea, here and obtained order for d/c pt home with home PT and walker.
[2020-02-16] MEDS: ONDANSETRON HCL 4 MG/2 ML VIAL IVP PRN (12:02)
--- NOTE | 2020-02-16 12:18 | NUR ---
Dietitian Recommendations * Recommend continuing 2gm Na, Mechanical Soft diet * Encourage PO intakes Please see Nutrition Assessment for details. SS, RD
[2020-02-16 12:23] VITALS: BP_SYST 137
[2020-02-16] MEDS ORDERED: busPIRone HCL 5 MG TABLET PO ONE (12:30)
--- NOTE | 2020-02-16 14:00 | NUR ---
patient home pharmacy closed today, called and notified,will hold d/c for today.
--- NOTE | 2020-02-16 16:00 | NUR ---
vss,pt urinated yellow urine in the bedside commode,safety maintained.hourly rounds made.
[2020-02-16 16:21] VITALS: BP_SYST 129
--- NOTE | 2020-02-16 18:00 | NUR ---
pt c/o panic attack,give another ativan 0.5mg po as prn order for anxiety.
--- NOTE | 2020-02-16 19:45 | NUR ---
A/A/OX4.DENIES ANY DISCOMFORT @ THIS TIME.DENIES SOB. IVF INFILTRATED & D/C. ASSISTED OOB TO BSC & BACK TO BED.INSTRUCTED TO USE CALL LIGHT NEEDED;WITHIN REACH.AFEBRILE.BP 147/90 MM HG.O2 SAT ON RA 97.
[2020-02-16 20:00] VITALS: BP_SYST 147
[2020-02-16] MEDS ORDERED: KCL 20 mEq in 100 mL (PREMIX) 0 ML IV ONE (20:56)
[2020-02-16] MEDS: busPIRone HCL 5 MG TABLET PO SCH (21:44)
--- NOTE | 2020-02-16 21:45 | NUR ---
IV INSERTED ON HER RFA WITH ANGIO #22 X1.IVF NS +10 MEQ KCL/L @ 50 ML/HR INFUSING WELL.
--- NOTE | 2020-02-16 22:10 | NUR ---
C/O THROBBING PAIN ON HER LOWER EXTREMITIES .SCLAE 03/23. NORCO 1 TAB PO ADM.
--- NOTE | 2020-02-16 23:10 | NUR ---
PER PT PAIN STILL PERSIST BUT DECREASED TO SCALE 2/10.
[2020-02-17] VITALS: BP_SYST 138
--- NOTE | 2020-02-17 00:45 | NUR ---
STILL AWAKE. TELE SHOWED SR.
--- NOTE | 2020-02-17 02:00 | NUR ---
RESTING COMFORTABLY IN NO ACUTE DISTRESS.
--- NOTE | 2020-02-17 04:00 | NUR ---
RESTING COMFORTABLY IN NO ACUTE DISTRESS.
--- NOTE | 2020-02-17 06:50 | NUR ---
ENDORSED RESTING COMFORTABLY IN NO ACUTE DISTRESS.IVF INFUSING WELL.SAFETY MAINTAINED.
[2020-02-17 08:17] VITALS: BP_SYST 135
[2020-02-17] MEDS: FAMOTIDINE 20 MG TABLET PO SCH (08:24)
[2020-02-17] MEDS: BACLOFEN 10 MG TABLET PO SCH (08:25)
[2020-02-17] MEDS: levETIRAcetam 500 MG TABLET PO SCH (08:25)
[2020-02-17] MEDS: busPIRone HCL 5 MG TABLET PO SCH (08:26)
[2020-02-17] MEDS: PREDNISONE 20 MG TABLET PO SCH (08:26)
[2020-02-17] MEDS: HYDROcodone/ACETAMIN 5-325 MG TAB (NORCO/ VICODIN) PO PRN ×2 (08:39→14:30)
--- NOTE | 2020-02-17 09:00 | NUR ---
Notes- Assumed care fro Leyda RN, resting in bed awake and oriented. Denies any pain or discomfort. IVF infusing well. Enc. patient to call for help as needed. Will monitor
--- NOTE | 2020-02-17 11:00 | NUR ---
Notes- Walking with FWW with therapy in the hallway at this time. pt tolerating well.
[2020-02-17 12:03] VITALS: BP_SYST 121
[2020-02-17] MEDS: LORazepam 1 MG TABLET PO PRN (12:12)
--- NOTE | 2020-02-17 12:13 | NUR ---
Discharge Planning: DCP faxed pt referral to [facility] (f [phone] p [phone]), [facility] (f [phone] p [phone]) FWW. DCP to follow up Addendum: 02/17/20 at 1310 by Lady Meyer DP NOAHP followed up with Bella at [facility] (f [phone] p [phone]) she is verifying eliability. [facility] (f [phone] p [phone]) FWW per Desire appoved and will deliver to home. Addendum: 02/17/20 at 1635 by Lady Meyer DP Bella at [facility] (f [phone] p [phone]) will resume care [facility] (f [phone] p [phone]) FWW per [facility] approved and will deliver to home. HORACIO gave patients contact number [phone].
--- NOTE | 2020-02-17 14:38 | NUR ---
Notes- Complains of back pain and ask for norco. Pt asking for discharge, Informed patient that ed case manager still working with the home health. Patient refuses [facility] to go to her house. will informed MD and ed case manager.
--- NOTE | 2020-02-17 15:25 | NUR ---
Dc Planning: s/w pt and her sister /Connie: the pt lives with Connie on 2nd floor apartment. There is 20 steps to her room. The pt used cane at home but will need FWW upon discharged. Per HORACIO/Lady the FWW will be delivered to home. The pt is anxious to go home, she does not want to wait for the FWW deliver here before discharge. Her friend will drive her home and will be able to help her getting up to her apt. Her friend will bring her cloth and cane at olive picker time. Per PT's note: PATIENT TOLERATED TREATMENT GOOD, NO C/O SOB OR DIZZINESS, ABLE TO AMBULATE AROUND NURSES STATION, DECREASED VELOCITY FOR SAFETY.-- NOEMY Person made aware. >>Dr. Srivastava made aware. I requested the md to give the final dc order to NOEMY Person and to complete the med rec upon discharge. >> Connie's phone # [phone], [phone], Zeeshan/umberto lives one hour away phone # [phone]. Addendum: 02/17/20 at 1543 by Vishal Purcell RN :: Confirmed with pt, she does not want HH services, does not want anyone entering her home. -- HORACIO Narayanan made aware.
[2020-02-17 15:34] VITALS: BP_SYST 120
[2020-02-17 16:00] VITALS: BP_SYST 120
--- NOTE | 2020-02-17 16:10 | NUR ---
Notes- In bed, talking to her sister at this time. Discharge packet done. Waiting for someone to warehouse picker patient.
--- NOTE | 2020-02-17 17:03 | NUR ---
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 awake and oriented. Pain is control. Denies any shortness of breath. discharge packet given and discussed with patient. Pt verbalize understanding. Arm band and IVL removed
== END 2020-02-17 17:05 | disposition home or self-care (01) | DRG 557 ==
LOC: SED 21:34 → STU 02-14 01:45 → SMU 02-17 10:51
PROVIDERS: ADMIT Internal Medicine; ATTEND Internal Medicine
DX: M62.82 Rhabdomyolysis (principal); G92 Toxic encephalopathy; K21.9 Gastro-esophageal reflux disease without esophagitis; I10 Essential (primary) hypertension; M19.90 Unspecified osteoarthritis, unspecified site; M41.9 Scoliosis, unspecified; G35 Multiple sclerosis; E87.6 Hypokalemia; G40.909 Epilepsy, unspecified, not intractable, without status epilepticus; F41.9 Anxiety disorder, unspecified; Z87.440 Personal history of urinary (tract) infections; Z90.49 Acquired absence of other specified parts of digestive tract; Z88.8 Allergy status to other drugs, medicaments and biological substances; Z79.899 Other long term (current) drug therapy
CPT/HCPCS: 36415; 70450-TC; 71045; 72125-TC; 80048; 80053; 80307; 81000-TC; 82550-TC; 82553-TC; 82962; 83605; 83735-TC; 84439; 84443-TC; 84484; 85025; 85610-TC; 85730-TC; 93005; 96361; 96374; 97110-GP; 97112-GP; 97116-GP; 99285; G0378; G0480; G0481; G0482; J1030; J2060; J2270; J2405; J3480; J7030; J7050; J7512

== ENCOUNTER 2020-05-30 20:20 | Inpatient (IN) | payer OTHER, SELFPAY ==
[~2020-05-30] VITALS: Ht 162.6 cm; Wt 40.8 kg
[2020-05-30 20:20] VITALS: BP_SYST 104
[~2020-05-30 20:20] MED LIST changes: -AMLO5TAB4 PO; -CEPH-568 PO
--- NOTE | 2020-05-30 20:25 | NUR ---
Patient to ER bed 2 to gown for evaluation. Side rails up.
--- NOTE | 2020-05-30 20:25 | NUR ---
ER Dr. Alvarez at bedside examining patient.
--- NOTE | 2020-05-30 20:25 | NUR ---
Patient BIB by ALS from her apartment. C/O fell x ~ 1 week (unknown.) Per reported, patient found on the floor , lying down left side, unknown when her family/friend could not contact her a week, called 911 and open her aparment, awake, confused, BP 70/50 , started IV left clavicle area , NSS Bolus, oxygen Mask with bag 15 L/min. Unknown Hx and unknown medications.
[2020-05-30] MEDS ORDERED: D5W 50 ML IV ONE (20:30)
[2020-05-30] MEDS ORDERED: NACL 0.9% 1,000 ML IV ONE (20:30)
--- NOTE | 2020-05-30 20:30 | NUR ---
BS 58, Dr. Alvarez notified.
--- NOTE | 2020-05-30 20:32 | NUR ---
Given Dextrose 50 % 50 ML IV state per verbald order.
--- NOTE | 2020-05-30 20:45 | NUR ---
# 18 gauge angiocath placed to rac. Use of asceptic technique. Opsite placed over site. Blood return noted. Blood for lab drawn from site. Flushed with 10 cc of normal saline. No evidence of infiltration noted. Patient tolerated well.
--- NOTE | 2020-05-30 20:47 | NUR ---
Blood for labwork drawn from cuff turner. Patient tolerated well.
--- NOTE | 2020-05-30 20:50 | NUR ---
RT at bedside for ABG.
--- NOTE | 2020-05-30 20:50 | NUR ---
# 16 FR Coronel catheter with use of sterile technique. Immediate return of 75 cc dark yellow urine noted. Bedside drainage bag placed below level of bladder. Urine sample collected and sent to lab. Pt tolerated procedure well
[2020-05-30] MEDS ORDERED: DEXTROSE 50% JECT 50 ML DISP.SYRIN ONE (20:55)
[2020-05-30] MEDS ORDERED: DEXTROSE 50% JECT 50 ML DISP.SYRIN IVP ONE ×2 (21:00→21:30)
[2020-05-30 21:01] LABS: BILIRUBIN,URINE 2+ (NEGATIVE); BLOOD, URINE 3+ (NEGATIVE); CLARITY/URINE CLOUDY (CLEAR); COLOR,URINE YELLOW (YELLOW); GLUCOSE,URINE NEGATIVE (NEGATIVE); KETONES,URINE TRACE (NEGATIVE); LEUKOCYTE ESTERASE ,URINE NEGATIVE (NEGATIVE); NITRITE, URINE NEGATIVE (NEGATIVE); PH,URINE 5.5 (5.0-8.0); PROTEIN URINE 2+ (NEGATIVE); UROBILINOGEN,URINE 0.2 (0.2-1.0)
--- NOTE | 2020-05-30 21:04 | NUR ---
X-ray at bedside.
[2020-05-30 21:07] LABS: BASOPHILS # (AUTO) 0.1 K/uL (0.0-0.2); BASOPHILS % (AUTO) 0.7 % (0.0-2.0); HEMATOCRIT 44.9 % (36-48); HEMOGLOBIN 14.5 g/dL (12.0-16.0); LYMPHOCYTES # (AUTO) 0.3 K/uL (1.0-5.5); LYMPHOCYTES % (AUTO) 2.5 % (20.5-51.5); MEAN CORPUSCULAR HEMOGLOBIN 31 pg (27-31); MEAN CORPUSCULAR HGB CONC 32 % (32-36); MEAN CORPUSCULAR VOLUME 95 fL (79.0-98.0); MONOCYTES # (AUTO) 0.8 K/uL (0.0-1.0); MONOCYTES % (AUTO) 5.6 % (1.7-9.3); NEUTROPHILS # (AUTO) 12.5 K/uL (1.8-7.7); NEUTROPHILS % (AUTO) 91.2 % (40.0-70.0); PLATELET COUNT (AUTO) 210 K/uL (130-430); RED BLOOD CELL COUNT(AUTO) 4.73 MIL/uL (4.2-6.2); RED CELL DISTRIBUTION WIDTH 15.2 % (9.0-15.0); WHITE BLOOD COUNT (AUTO) 13.7 K/uL (4.8-10.8)
--- NOTE | 2020-05-30 21:08 | NUR ---
Patient transported to radiology via gurney, accompanied by RN, EMT and RT.
[2020-05-30 21:16] LABS: CALCIUM 7.8 mg/dL (8.4-11.0); CREATININE 5.31 mg/dL (0.55-1.30); POTASSIUM 5.2 mmol/L (3.5-5.1)
--- NOTE | 2020-05-30 21:19 | NUR ---
Patient came back from CT scan.
[2020-05-30 21:24] LABS: BACTERIA,URINE FEW /HPF (None Seen)
[2020-05-30 21:28] LABS: BARBITURATE, URINE NEGATIVE (NEG <=200)
[2020-05-30 21:29] LABS: METHAMPHETAMINES SCREEN,URINE POSITIVE (NEG <=500); URINE AMPHETAMINE NEGATIVE (NEG <=500)
[2020-05-30 21:30] LABS: BENZODIAZEPINE, URINE NEGATIVE (NEG <=150); URINE METHADONE NEGATIVE (NEG <=200)
[2020-05-30] MEDS ORDERED: D5/0.45 NS 1,000 ML IV ONE (21:30)
--- NOTE | 2020-05-30 21:30 | NUR ---
BS 35 , Dr. Alvarez notified.
[2020-05-30 21:31] LABS: CANNABINOID, URINE NEGATIVE (NEG <=50); COCAINE, URINE NEGATIVE (NEG <=150); OPIATE, URINE NEGATIVE (NEG <=100); PHENCYCLIDINE SCREEN,URINE NEGATIVE (NEG <=25); URINE OXYCODONE SCREEN NEGATIVE (NEG <=100); URINE PROPOXYPHENE SCREEN NEGATIVE (NEG <=300)
[2020-05-30 21:32] LABS: UR TRICYCLIC ANTIDEPRESSANTS NEGATIVE (NEG <=300)
--- NOTE | 2020-05-30 21:32 | NUR ---
Given Dextrose 50 % 50 Ml IV stat per Dr. Alvarez verbal order.
[2020-05-30 21:33] LABS: ALBUMIN 3.1 g/dL (3.4-4.8); TOTAL BILIRUBIN 0.8 mg/dL (0.0-1.0)
[2020-05-30] MEDS ORDERED: cefTRIAXone 1 GM in D5W 50 ML IV ONE (21:45)
[2020-05-30] MEDS ORDERED: cefTRIAXone 1 GM VIAL ONE (21:59)
--- NOTE | 2020-05-30 22:01 | NUR ---
Patient is unable to participate in end of life decisions making at this time. We are unable to contact family or power of ip attorney for healthcare and there are no code status forms on the chart. At this time the patient will be treated as full code on the basis of implied consent.
--- NOTE | 2020-05-30 22:06 | NUR ---
unable to complete medication reconcilation at this time. No family present. Patient unable to verbalize medications.
--- NOTE | 2020-05-30 22:12 | NUR ---
BS 230, Dr. Alvarez notified.
--- NOTE | 2020-05-30 22:41 | NUR ---
used doppler to check pulse left radial -no pulse- left arm, hand blue color, bruise, skin tear left hand and wrist and forearm.
--- NOTE | 2020-05-30 22:44 | NUR ---
Patient will be admitted to care of Dr. Sarah . Admitted to ICU unit. Will go to room 4. Belongings list completed. Complete and up to date summary report printed. SBAR report to be given at bedside with opportunity for questions.
[2020-05-30] MEDS ORDERED: D5/0.45 NS 1,000 ML IV SCH (22:45)
--- NOTE | 2020-05-30 22:47 | NUR ---
Per verbal order by Dr. Alvarez -change Oxygen Mask with bag to canula 5 L/min- Oxygen sat 94-95 %
[2020-05-30] MEDS ORDERED: ACETAMINOPHEN PO PRN (23:00)
[2020-05-30] MEDS ORDERED: NALOXONE HCL 0.4 MG/ML AMP (NARCAN) IVP PRN ×2 (23:00)
[2020-05-30] MEDS ORDERED: HYDROcodone/ACETAMIN 10-325 MG TAB PO PRN (23:00)
[2020-05-30] MEDS ORDERED: ONDANSETRON HCL 4 MG/2 ML VIAL IVP PRN (23:00)
[2020-05-30] MEDS ORDERED: cefTRIAXone 1 GM IVPB PREMIX 50 ML IV SCH (23:00)
[2020-05-30] MEDS ORDERED: DIAZEPAM 5 MG TABLET (VALIUM) PO PRN (23:00)
[2020-05-30] MEDS ORDERED: HYDROCODONE PO PRN (23:00)
[2020-05-30 23:05] VITALS: BP_SYST 77
--- NOTE | 2020-05-30 23:05 | NUR ---
Admission Patient was brought in my the ER to ICU bed-4. Patient was on 5 L NC. Patient has skin tear on the right hand/arm. Patient has a wound on the coccyx and a bump on the right upper shoulder. Patient has 2 IV's sites; 18g Left clavicle, 18 g right forearm. Patient has a coronado draining via gravity. Safety protocols in place, call light within reach.
[2020-05-30] MEDS ORDERED: *HEPARIN PER PHARMACY XX ONE (23:15)
--- NOTE | 2020-05-30 23:22 | NUR ---
CONSULT DR. POP RENAL FAILURE [phone] ANSWERED THE PHONE
[2020-05-30] MEDS ORDERED: HEPARIN 25,000 UNITS/D5W 250mL PREMIX IV PRN (23:30)
--- NOTE | 2020-05-30 23:30 | NUR ---
Paged Dr. Middleton called. New orders received.
[2020-05-30 23:32] LABS: CKMB RELATIVE INDEX 1.1 (0.0-2.9); CREATINE KINASE MB 182.9 ng/mL (0-3.6)
[2020-05-30 23:45] VITALS: BP_SYST 115
--- NOTE | 2020-05-30 23:47 | NUR ---
Dr. Alvarez speaking to Zeeshan Goodman, Patient's nephew. Home number for Sister in chart is disconnected.
[2020-05-31] VITALS (27 sets, daily range): BP systolic 63–169
[2020-05-31] MEDS ORDERED: D5/0.45 NS 1,000 ML IV SCH
--- NOTE | 2020-05-31 00:22 | NUR ---
CONSULT DR. LOPEZ, Tiana. [phone] SPOKE TO BONNIE
--- NOTE | 2020-05-31 00:30 | NUR ---
paged Dr. Sarah (Cardiac) paged. New orders received.
[2020-05-31] MEDS ORDERED: cefTRIAXone 1 GM IVPB PREMIX 50 ML IV ONE (01:26)
--- NOTE | 2020-05-31 01:26 | NUR ---
PAGED DR. PRABHAKAR PAGER [phone] DR. BUTLER CALLED BACK
--- NOTE | 2020-05-31 01:26 | NUR ---
paged Dr. Wolfe called. New orders received.
--- NOTE | 2020-05-31 01:40 | NUR ---
[facility] paged Called [facility], to verify heparin drip starting dose.
[2020-05-31] MEDS ORDERED: SODIUM BICARBONATE 8.4% JECT 50 MEQ in D5W 1,000 ML IVP SCH (01:45)
[2020-05-31] MEDS ORDERED: HEPARIN SODIUM,PORCINE 5,000 UNITS/ML VIAL IV ONE (02:00)
[2020-05-31] MEDS ORDERED: HEPARIN SODIUM,PORCINE 2000 UNITS/0.4 ML BOLUS IVP PRN (02:00)
[2020-05-31] MEDS ORDERED: HEPARIN SODIUM,PORCINE 3000 UNITS/0.6 ML BOLUS IVP PRN (02:00)
[2020-05-31] MEDS: SODIUM BICARBONATE 8.4% VIAL 150 MEQ in D5W 1,000 ML IV SCH ×2 (02:09→16:03)
[2020-05-31] MEDS ORDERED: SODIUM BICARBONATE 8.4% JECT 50 MEQ/50 ML SYRINGE ONE (02:13)
[2020-05-31] MEDS: NOREPINEPHRINE BITARTRATE 4 MG in D5W 246 ML IV PRN ×2 (02:23→10:11)
--- NOTE | 2020-05-31 02:30 | NUR ---
Heparin started Started heparin bolus and heparin drip. Ordered APTT 6 hours later.
[2020-05-31] MEDS ORDERED: NOREPINEPHRINE 4 MG/4 ML VIAL IV ONE (02:36)
[2020-05-31] MEDS: MORPHINE 2 MG/ML INJ. SYRINGE IVP PRN (02:57)
--- NOTE | 2020-05-31 06:00 | NUR ---
PAGENataly Patient has about 40 cc of urine in the coronado catheter. Reported this to Dr. Middleton. New orders received.
--- NOTE | 2020-05-31 06:17 | NUR ---
PAGED DR. POP [phone] SPOKE WITH MARYANA
[2020-05-31 06:38] LABS: BASOPHILS % (AUTO) 0.2 % (0.0-2.0); HEMATOCRIT 45.9 % (36-48); LYMPHOCYTES # (AUTO) 0.3 K/uL (1.0-5.5); LYMPHOCYTES % (AUTO) 2.1 % (20.5-51.5); MEAN CORPUSCULAR HEMOGLOBIN 31 pg (27-31); MEAN CORPUSCULAR HGB CONC 33 % (32-36); MEAN CORPUSCULAR VOLUME 95 fL (79.0-98.0); MONOCYTES # (AUTO) 0.9 K/uL (0.0-1.0); NEUTROPHILS # (AUTO) 11.9 K/uL (1.8-7.7); NEUTROPHILS % (AUTO) 90.7 % (40.0-70.0); PLATELET COUNT (AUTO) 139 K/uL (130-430); RED BLOOD CELL COUNT(AUTO) 4.86 MIL/uL (4.2-6.2); RED CELL DISTRIBUTION WIDTH 15.3 % (9.0-15.0); WHITE BLOOD COUNT (AUTO) 13.2 K/uL (4.8-10.8)
--- NOTE | 2020-05-31 06:40 | NUR ---
PAGED Called Dr. Wolfe. New orders received.
[2020-05-31] MEDS ORDERED: NACL 0.9% 1,000 ML IV ONE ×2 (07:00)
[2020-05-31 07:07] LABS: INR 1.2 (0.8-1.2)
[2020-05-31 07:17] LABS: ALBUMIN 2.7 g/dL (3.4-4.8); CREATININE 5.11 mg/dL (0.55-1.30); POTASSIUM 5.2 mmol/L (3.5-5.1); TOTAL BILIRUBIN 0.6 mg/dL (0.0-1.0)
--- NOTE | 2020-05-31 07:25 | NUR ---
Closing Note Endorsed report to AM nurse using SBAR approach. Endorsed the need for wound photos to AM nurse.
[2020-05-31] MEDS ORDERED: PHENYLEPHRINE HCL 50 MG in NS 245 ML IV PRN (07:30)
--- NOTE | 2020-05-31 07:50 | NUR ---
AM ASSESSMENT. PT AWAKE, USING BIPAP AT THIS HOUR, DR POP CAME IN AND EXAMINED PATIENT. PT'S SKIN COLD UPON TOUCHING, LEFT FOREARM NECROTIC. HEPARIN DRIP AT 600 UNIT/HR, LEVOPHED DRIP AT 0.7 MCG/KG/MIN. [id number] WITH 3 AMPS OF SODIUM BICARB AT 75 ML PER HR. [address]HWAY MAINTENANCE SUPERVISOR ON SINUS TACH, BLOOD PRESSURE CONTINUOUSLY MONITORED. DR POP HAD ATTEMPTED TO INSERT A DIALYSIS ACCES TO HER FEMORAL AREA, BUT UNSUCCESSFUL.
[2020-05-31 07:57] LABS: CALCIUM 6.9 mg/dL (8.4-11.0)
[2020-05-31] MEDS ORDERED: LIDOCAINE 1%, 20 ML MDV 20 ML ONE (08:01)
[2020-05-31] MEDS ORDERED: HEPARIN SODIUM,PORCINE 5,000 UNITS/ML VIAL ONE (08:03)
[2020-05-31 08:04] LABS: PHOSPHORUS 9.7 mg/dL (2.7-4.5)
--- NOTE | 2020-05-31 08:30 | NUR ---
IV ACCESS. PATIENT NOW INTUBATED. DR QUEEN ACCESSED LEFT JUGULAR AREA FOR IV PLACEMENT, WITH DIFFICULTY IN INSERTION.
--- NOTE | 2020-05-31 08:30 | NUR ---
RT NOTES 0810- PT INTUBATED WITH ETT 7.[address] QUEEN ON FIRST ATTEMP. COLOR CHANGE NOTED ON CO2 DETECTOR. BILATERAL CHEST RISE. ETT SECURED AT 24CM LIP LINE. 0820- PT CONNECTED TO VENTILATOR VIA SETTING AC 18, 380, PEEP5, 100%. DR. QUEEN MADE AWARE.
[2020-05-31] MEDS ORDERED: OXYBUTYNIN CHLORIDE 5 MG TABLET PO SCH (09:00)
[2020-05-31] MEDS ORDERED: MIDAZOLAM HCL 2 MG/2 ML VIAL (VERSED) ONE ×2 (09:13→14:39)
--- NOTE | 2020-05-31 09:30 | NUR ---
HD ACCESS. DR QUEEN RETURNED AND INSERTED DIALYSIS ACCES INTO RIGHT INTERNAL JUGULAR AREA, AGAIN WITH DIFFICULTY IN INSERTION. NGT INSERTED INTO RIGHT NARIS, ATTEMPTS MADE THRU THE MOUTH AND NOSE, TUBE COILING SEEN INSIDE THE PATIENT'S MOUTH. CHEST XRAY ORDERED TO CONFIRM PLACEMENT.
[2020-05-31] MEDS ORDERED: ETOMIDATE 20 MG/ 10 ML VIAL (AMIDATE) IVP ONE (09:46)
[2020-05-31] MEDS ORDERED: ROCURONIUM BROMIDE 10 MG/ML (ZEMURON) IV ONE ×2 (09:46→17:16)
[2020-05-31] MEDS ORDERED: ALBUMIN HUMAN 25% 100 ML IV ONE ×3 (10:30→17:00)
--- NOTE | 2020-05-31 10:30 | NUR ---
RT NOTES - 80% FIO2 DECREASED FIO2 TO 80% BASE ON POST INTUBATION ABG RESULT. RN ALTHEA MADE AWARE.
[2020-05-31] MEDS ORDERED: COMMUNICATION ORDER XX ONE (10:45)
[2020-05-31] MEDS ORDERED: NOREPINEPHRINE BITARTRATE 8 MG in D5W 246 ML IV PRN (10:49)
[2020-05-31] MEDS ORDERED: NOREPINEPHRINE BITARTRATE 8 MG in D5W 242 ML IV PRN (10:52)
--- NOTE | 2020-05-31 10:55 | NUR ---
ECHOCARDIOGRAM. BORING MACHINE OPERATOR JUST FINISHING THE TEST, SHE STATED THAT SHE WILL GET IN TOUCH WITH THE OPTOMETRIST ASSISTANT, EJECTION FRACTION 14%.
[2020-05-31] MEDS ORDERED: PHENYLEPHRINE HCL 100 MG in NS 240 ML IV PRN (11:03)
[2020-05-31] MEDS: predniSONE 20 MG TABLET PO SCH (11:31)
[2020-05-31] MEDS: FAMOTIDINE PF 20 MG/2 ML VIAL IVP SCH (11:31)
[2020-05-31] MEDS: PIPERACILLIN/TAZO 2.25G/DEX-IS 50 ML IV SCH ×2 (11:31→18:09)
[2020-05-31] MEDS: levETIRAcetam 500 MG TABLET PO SCH ×2 (11:31→21:45)
--- NOTE | 2020-05-31 12:06 | NUR ---
CONSULT SURGERY CONSULTING MD: DR. SUERO SPOKE TO: DIALED: [phone] ORDERED BY: DR. Tala LOPEZ
--- NOTE | 2020-05-31 14:50 | NUR ---
ARTERIAL LINE. NEW CATHETER INTO LEFT FEMORAL AREA INSERTED BY DR QUEEN, CVP IN PLACED.
--- NOTE | 2020-05-31 16:00 | NUR ---
SURGEON. DR PETE SUERO CAME IN AND EXAMINED PT.
--- NOTE | 2020-05-31 16:19 | NUR ---
ELEVATED TROPONIN. LAB TEST RECEIVED, TROPONIN 8.347, PAGED DR Tiana LOPEZ, HE RETURNED THE CALL, AND MADE AWARE OF RESULT. NEW ORDERS RECEIVED. HE STATED THAT HE WILL BE COMING TO SEE THE PATIENT.
--- NOTE | 2020-05-31 18:15 | NUR ---
ULTRA SOUND. PT HAVING A DOPPLER ULTRASOUND TO THE ARMS AT THIS HOUR.
--- NOTE | 2020-05-31 19:05 | NUR ---
IV DRIPS. PTT 102.2, HEPARIN DRIP OFF PER PROTOCOL.
--- NOTE | 2020-05-31 19:25 | NUR ---
PM SHIFT ASSESSMENT Pt is A/O X1. Pt is on the vent, RR even and unlabored. ST on the monitor. Right wrist restraint in place, no signs of skin issues noted here. Coronel catheter in place, draining to gravity. Multiple drips infusing, no signs of infiltration noted. NG noted and clamped. Safety precautions in place, call light within reach. Will continue to monitor.
--- NOTE | 2020-05-31 20:27 | NUR ---
HEPARIN DRIP I aiden Goss RN decrease Heparin drip to 400units/hour per Heparin protocol. PTT will be rechecked @ 0300.
[2020-05-31] MEDS: LINEZOLID 300 ML IV SCH (21:11)
[2020-05-31 21:12] LABS: CREATININE 4.39 mg/dL (0.55-1.30); PHOSPHORUS 5.4 mg/dL (2.7-4.5); POTASSIUM 4.2 mmol/L (3.5-5.1); TOTAL BILIRUBIN 0.5 mg/dL (0.0-1.0)
[2020-05-31 21:15] LABS: CALCIUM 5.9 mg/dL (8.4-11.0)
--- NOTE | 2020-05-31 21:15 | NUR ---
UNABLE TO TURN PATIENT Q2HR D/T PATIENT BEING TOO UNSTABLE. PATIENT IS CURRENTLY BEING FLOATED WITH TWO PILLOWS UNDER EACH SIDE OF BACK AND UNDER HEELS. WILL CONTINUE TO MONITOR.
[2020-05-31] MEDS: LORazepam 2 MG/ML VIAL IVP PRN (21:38)
[2020-05-31] MEDS ORDERED: CALCIUM GLUCONATE 3 GM in NS 100 ML IV ONE (22:00)
[2020-05-31] MEDS ORDERED: CALCIUM GLUCONATE 1 GM/10 ML VIAL ONE (23:29)
[2020-06-01] VITALS (29 sets, daily range): BP systolic 95–151
[2020-06-01] MEDS: NOREPINEPHRINE BITARTRATE 16 MG in D5W 234 ML IV PRN ×4 (00:08→17:35)
[2020-06-01] MEDS: PIPERACILLIN/TAZO 2.25G/DEX-IS 50 ML IV SCH ×4 (00:18→17:35)
[2020-06-01] MEDS: SODIUM BICARBONATE 8.4% VIAL 150 MEQ in D5W 1,000 ML IV SCH ×3 (00:18→23:27)
[2020-06-01] MEDS: MORPHINE 2 MG/ML INJ. SYRINGE IVP PRN (00:33)
[2020-06-01] MEDS: LORazepam 2 MG/ML VIAL IVP PRN ×2 (02:16→07:58)
[2020-06-01 04:27] LABS: ALBUMIN 1.9 g/dL (3.4-4.8); CALCIUM 7.2 mg/dL (8.4-11.0); CREATININE 4.47 mg/dL (0.55-1.30); PHOSPHORUS 4.1 mg/dL (2.7-4.5); POTASSIUM 3.8 mmol/L (3.5-5.1); TOTAL BILIRUBIN 0.6 mg/dL (0.0-1.0)
[2020-06-01 04:43] LABS: MEAN CORPUSCULAR HEMOGLOBIN 31 pg (27-31); MEAN CORPUSCULAR HGB CONC 33 % (32-36); PLATELET COUNT (AUTO) 91 K/uL (130-430); RED BLOOD CELL COUNT(AUTO) 3.21 MIL/uL (4.2-6.2); RED CELL DISTRIBUTION WIDTH 14.8 % (9.0-15.0); WHITE BLOOD COUNT (AUTO) 17.1 K/uL (4.8-10.8)
[2020-06-01 04:56] LABS: MEAN CORPUSCULAR VOLUME 94 fL (79.0-98.0)
[2020-06-01 04:59] LABS: C-REACTIVE PROTEIN QUANT 20.6 mg/dL (0-0.5)
[2020-06-01 06:05] LABS: ERYTHROCYTE SEDIMENTATION RATE 12 MM/HR (0-20)
[2020-06-01 06:16] LABS: CKMB RELATIVE INDEX 0.4 (0.0-2.9); CREATINE KINASE MB 44.4 ng/mL (0-3.6)
[2020-06-01 06:19] LABS: BAND % (MANUAL) 27 % (0-6); BASOPHILS % (MANUAL) 0 % (0-2); EOSINOPHILS % (MANUAL) 0 % (0-7); LYMPHOCYTES % (MANUAL) 5 % (20-46); METAMYELOCYTES % 3 % (0-0); MONOCYTES % (MANUAL) 6 % (0-11)
--- NOTE | 2020-06-01 07:25 | NUR ---
ENDORSEMENT Pt care endorsed to dayshift RN using nursing SBAR.
--- NOTE | 2020-06-01 07:27 | NUR ---
Nutrition Update Carlos Scale 10 noted. Pt admitted for Renal failure, Sepsis Diet: NPO BMI: 15.4 kg/m2 RD to follow per nutrition care standards.
--- NOTE | 2020-06-01 07:30 | NUR ---
Opening Notes Patient received in bed connected to lasting room supervisor with sinus tachycardia, HR noted to be in the 140s at this time. Patient orally intubated with settings AC 18, FiO2 80%, tidal volume 380, PEEP 5. Patient with RIJ and LIJ central line. Patient receiving D5W + 3 amps bicarb at 125 ml/hr, levophed at 0.75 mcg/kg/min, neosynephrine at 0.5 mcg/kg/min, and heparin drip at 400 units/hr. Patient has a right nare NGT clamped at this time. Patient has a coronado catheter draining urine. Safety precautions enforced.
--- NOTE | 2020-06-01 08:40 | NUR ---
MD Rounds Dr. Spears at bedside for examination. Per MD, HD to be held today due to patient being unstable.
--- NOTE | 2020-06-01 08:50 | NUR ---
MD Rounds Dr. Gómez at bedside for examination. New orders received.
[2020-06-01] MEDS: predniSONE 20 MG TABLET PO SCH (08:58)
[2020-06-01] MEDS: FAMOTIDINE PF 20 MG/2 ML VIAL IVP SCH (08:58)
[2020-06-01] MEDS: levETIRAcetam 500 MG TABLET PO SCH ×2 (08:59→20:27)
[2020-06-01] MEDS: LINEZOLID 300 ML IV SCH ×2 (08:59→20:23)
[2020-06-01] MEDS ORDERED: fentaNYL CITRATE 250 MCG/5 ML AMP IV ONE (09:00)
[2020-06-01] MEDS: FUROSEMIDE 40 MG/4 ML VIAL IVP SCH ×3 (09:00→20:27)
[2020-06-01] MEDS ORDERED: PROPOFOL DRIP 100 ML IV ONE (11:18)
[2020-06-01] MEDS: PROPOFOL DRIP 100 ML IV PRN (11:18)
--- NOTE | 2020-06-01 11:50 | NUR ---
MD Rounds Dr. Boothe at bedside for examination. No new orders received.
--- NOTE | 2020-06-01 12:00 | NUR ---
RN Rounds Patient remains to have increased heart rate, noted to be in the 140s. MD paged. Patient orally suctioned with moderate pink secretions out. Patient being closely monitored. Safety precautions enforced.
--- NOTE | 2020-06-01 12:20 | NUR ---
MD Rounds Dr. Pena at bedside for examination. Per MD, patient does not qualify for surgery at this time due to condition.
--- NOTE | 2020-06-01 12:32 | NUR ---
Dietitian Recommendations *Recommend: initiate EN support via NGT when medically appropriate. *Recommend: Nepro at 25ml/hr (goal rate), Magdy BID, FWF 140ml Q6H via NGT Provides: 1240 kcal, 54gm protein and 996ml/ fluids daily. Meets: 98% of estimated calorie needs and 83% of lower end of estimated protein needs. Please see Nutritional Assessment for details. RESIDENTIAL, RD
--- NOTE | 2020-06-01 13:00 | NUR ---
Heart Rate HR is the 140s, notified Dr. Catarina Sarah. No new orders received
--- NOTE | 2020-06-01 15:20 | NUR ---
WOUND EVALUATION: Wound Consult received from Dr. yMles Sarah. Thank you, Dr. Sarah, for the consult. Patient received in a Fide Bed with an Isoflex MANNY mattress with low air loss therapy, sedated. Patient is unable to turn independently. Carlos Score is a 10. Past Medical History: Polysubstance abuse, Metabolic Encephalopathy, Rhabdomyolysis and Methamphetamine overdose. Per medical record, the patient came to ER for altered mental status and was last seen normal about a week ago. Her neighbor called EMS to check on the her and when EMS arrived they found the patient lying on her left side, with altered mental state, hypotensive, and a systolic blood pressure of 70. On arrival to ER, the patient had blood sugar in the 50's, elevated CPKs, probable Rhabdomyolysis, ischemia, gangrene of the left arm and hand. Presently, the patient is on vasopressors (quad strength Levophed IV at 0.86 mcg kg/min and Pascual-Synephrine at 0.5 mcg), Heparin drip for both ischemia/gangrene of the left hand and elevated troponin levels, and propofol drip. The patient was admitted to ICU with left upper extremity necrosis, multiple DTI's, and multi-organ failure. Left upper extremity Arterial Doppler results: "Impression: Nonvisualization of the left ulnar artery due to marked soft tissue swelling." Clinical impression/diagnoses per Dr. Sarah: 1. Sepsis. 2. Septic Shock. 3. Leukocytosis. 4. Acute Respiratory Failure. 5. Ventilator dependent. 6. Hypernatremia. 7. Hyperkalemia. 8. Acute Kidney Injury. 9. Chronic Kidney Disease. 10. Hyperglycemia. 11. Lactic Acidosis. 12. Hypocalcemia. 13. Transaminitis. 14. Rhabdomyolysis. 15. Elevated troponin level. 16. Hypoalbuminemia. 17. Possible urinary tract infection. 18. Methamphetamine abuse. 19. Left lower extremity Peripheral Vascular Disease. 20. Encephalopathy (Metabolic/Septic). Dr. Pena on surgical consult stated that the patient is too unstable for any surgical intervention at this time, but may require a left upper extremity amputation at some point. Recent Labs: WBC 17.1, RBC 3.21, hemoglobin 10.0, hematocrit 30.0, platelets 91, BUN 108, creatinine 4.47, GFR 10, glucose 156, calcium 7.2, AST 278, ALT 113, alkaline phosphatase 38, total creatine kinase 12,186, CK-MB CK 244.4, troponin 4.385/3.752/8.347, C-reactive protein 20.6, serum total protein 4.6, albumin 1.9, PTT 56.6. Microbiology: Blood culture results x2 in progress. MRSA screen results negative. Urine culture results in progress. Endotracheal sputum culture results in progress. Intrinsic factors that delay wound healing: Methamphetamine Overdose, Acute Respiratory Failure, Sepsis, left lower extremity PVD, Encephalopathy (Metabolic/Septic), Acute kidney injury/Chronic Kidney Disease, Hyperglycemia. Extrinsic factors that delay wound healing: Immobility. Wound Assessment: 1. Left Sacral area: sDTI, present on admission. Site has 60% light red discoloration, 40% black discoloration. No odor, no drainage. Periwound intact. Site measures 5.0 cm x 7.3 cm. 2. Right Sacral/Upper Buttock areas: sDTI. Site has 70% light red discoloration, 30% black discoloration. Red discoloration crosses the sulcus and extends into the left Sacral/Upper Buttock area. No odor, no drainage. Periwound intact. Site measures 5.7 cm x 7.4 cm. Recommend: Apply moisture barrier cream to areas around DTI's. Cover sites with foam dressings. Change dressings and assess sites daily daily, and as needed for dressing soiling or dislodgment. 3. Left Lateral Upper Back: sDTI, present on admission. Site has 60% red discoloration, 40% black discoloration. No odor, small sanguineous drainage. Periwound intact. Site measures 9.0 cm x 4.9 cm. Recommend: Cleanse wound with normal saline. Apply moisture barrier cream to periwound. Apply Venelex ointment to wound bed. Do not apply Venelex to any intact areas of skin. Cover with foam dressing. Perform wound care daily, and as needed for dressing soiling or dislodgment. 4. Left Lateral Upper Back, Inferior to Site 3: sDTI, present on admission. Site has 60% light red discoloration, 40% black discoloration. No odor, no drainage. Periwound intact. Site measures 5.5 cm x 3.0 cm. Recommend: Apply moisture barrier cream to area around DTI. Cover site with foam dressing. Change dressing and assess site daily daily, and as needed for dressing soiling or dislodgment. 5. Left Axillary area: sDTI, present on admission. Site has 30% red discoloration, 70% black discoloration. No odor, Scant serous drainage drainage. Periwound intact. Site measures 8.0 cm x 4.7 cm. Recommend: Cleanse wound with normal saline. Apply moisture barrier cream to periwound. Apply Venelex ointment to wound bed. Do not apply Venelex to any intact areas of skin. Cover with foam dressing. Perform wound care daily, and as needed for dressing soiling or dislodgment. 6. Right Elbow: Unstageable pressure ulcer, present on admission. Wound bed has 80% yellow tissue, 15% black tissue, 5% pink tissue. No odor, scant yellow drainage. Periwound intact. Wound measures 4.5 cm x 5.2 cm. Recommend: Cleanse wound with normal saline. Apply moisture barrier cream to periwound. Apply Venelex ointment to wound bed. Cover with foam dressing. Perform wound care daily, and as needed for dressing soiling or dislodgment. Offload site at all times with pillows. 7. Left Lateral Forearm: Ischemia, possibly secondary to lying on arm for an extended period of time, present on admission. Site has black gangrene and red discoloration, cool to the touch. Fingernails are black, and black veins are visible on the dorsal hand. Extremity also has purple discoloration. Erythema extends to 3.7 cm superior to the elbow. Recommend: No dressing needed. Continue to monitor site every shift. Elevate extremity with multiple pillows. 8. Left Lateral Forearm/Wrist: Ischemia, possibly secondary to lying on arm for an extended period of time, present on admission. Site has 35% black (gangrene) discoloration, 35% yellow discoloration, 20% pink discoloration, 10% red discoloration. Cool to the touch. Site measures 11.5 cm x 6.7 cm. Recommend: No dressing needed. Continue to monitor site every shift. Elevate extremity with multiple pillows. 9. Left Forearm, Distal to site 8: Ischemia, possibly secondary to lying on arm for an extended period of time, present on admission. Site has 90% red tissue, 10% black (gangrene) discoloration. Cool to the touch. No odor, scant serous drainage. Periwound intact. Wound measures 2.3 cm x 3.7 cm. Recommend: Cleanse wound with normal saline. Apply moisture barrier cream to periwound. Apply Venelex ointment to wound bed. Do not apply Venelex to any intact areas of skin. Cover with foam dressing. Perform wound care daily, and as needed for dressing soiling or dislodgment. 10. Left Distal Dorsal Forearm/Wrist: Ischemia, possibly secondary to lying on arm for an extended period of time, present on admission. Site has 70% black (gangrene) discoloration, 30% yellow discoloration. Cool to the touch. Two black scabs present superior to site. Site measures 3.0 cm x 2.3 cm. Recommend: No dressing needed. Continue to monitor site every shift. Elevate extremity with multiple pillows. 11. Right Lateral Heel: sDTI, present on admission. Site has 40% yellow discoloration, 30% black discoloration, 20% brown discoloration, 10% lb discoloration. No odor, no drainage. Periwound intact. Recommend: Cover site with foam dressing. Perform site care daily, and as needed for dressing soiling or dislodgement. Elevate, offload and float bilateral heels with one pillow lengthwise under each extremity at all times. Also recommend: Reposition patient side to side only every 2 hours with one pillow Underneath trunk and one pillow underneath pelvis. Off-load pressure areas with pillows for pressure re-distribution. Elevate, offload and float bilateral heels with one pillow lengthwise under each extremity at all times. Perform skin care and monitor skin integrity Q shift. Use moisture barrier cream on buttocks and other moisture susceptible areas QID and as needed for soiling. Maintain patient on a low air-loss mattress.
--- NOTE | 2020-06-01 15:20 | NUR ---
seconds inspector rounds furnace erector at bedside for examination of skin/wounds. Patient turned and repositioned. VS being monitored closely. Safety precautions enforced.
[2020-06-01] MEDS: ACETAMINOPHEN 325 MG TABLET PO PRN ×2 (16:09→22:11)
--- NOTE | 2020-06-01 17:40 | NUR ---
MD Rounds Dr. Sarah at bedside for examination. No new orders received.
--- NOTE | 2020-06-01 19:15 | NUR ---
Pt report received. Pt sedated and on ventilator with settings: A/C, 18, 380, 5, 60%. Nepro at 10 mL/hr to NGT. Davide Cath secure with D5W with Bicarb at 125 mL/hr. Triple Lumen LIJ CV catheter with Levophed Quadruple strength at 0.5 mcg/kg/min, Propofol 10 mcg/kg/min, and Heparin 400 Units/hr infusing without difficulty. CVP transducer zeroed at 2 mmHg with good wave form. Left Femoral Arterial Line transducer zeroed with B/P 114/70 and good wave form. F/C draining clear and yellow urine. LUE with gangrenous sores, red and cold to touch, nailbeds black. Multiple wounds/abrasions to back and sacrum. See Wound documentation in nursing assessment intervention.
--- NOTE | 2020-06-01 19:30 | NUR ---
Closing Notes Endorsed patient to overnight houseperson RN using SBAR format. Patient in no signs of distress at this time.
--- NOTE | 2020-06-01 21:00 | NUR ---
Pt with scant black and tarry BM. While attempting to clean pt, copious amount of black, watery, and foul smelling BM pools filling groin area. Pt cleaned, then rectal temp obtained with a reading of 106.4. Ice packs applied to neck, axilla, sides, abdomen, and groin. Tylenol 650 mg per NGT given and Dr. Tala Sarah exchange contacted.
--- NOTE | 2020-06-01 21:10 | NUR ---
PAGED SHAYAN CASAS FOR ORDERS DIALED: [phone] SPOKE TO: SHASTA
--- NOTE | 2020-06-01 21:10 | NUR ---
No seizure activity noted.
--- NOTE | 2020-06-01 21:10 | NUR ---
NGT feedings turned off at this time.
--- NOTE | 2020-06-01 21:30 | NUR ---
Cooling blanket applied to pt with rectal temp probe in place. Rectal temp 105.2. Awaiting call back from Dr. Sarah.
--- NOTE | 2020-06-01 21:43 | NUR ---
PAGED SHAYAN CASAS FOR ORDERS (SECOND ATTEMPT) DIALED: [phone] SPOKE TO: SHASTA
--- NOTE | 2020-06-01 21:50 | NUR ---
Rectal Temp 104.5. B/P 147/88, P 111. Neosynephrine Drip decreased to 0.2 mcg/kg/min.
--- NOTE | 2020-06-01 22:00 | NUR ---
NGT feedings of Nepro resumed at 10 mL/hr. No residual noted.
[2020-06-01] MEDS ORDERED: PANTOPRAZOLE SODIUM 40 MG/VIAL (PROTONIX) IVP ONE (22:10)
--- NOTE | 2020-06-01 22:29 | NUR ---
PAGED SHAYAN CASAS FOR ORDERS DIALED: [phone] SPOKE TO: JENNIFER
--- NOTE | 2020-06-01 22:30 | NUR ---
Cooling blanket remains in place. Rectal Temp 103.2. No seizure activity.
--- NOTE | 2020-06-01 22:44 | NUR ---
PAGED SHAYAN CASAS FOR ORDERS (SECOND ATTEMPT) DIALED: [phone] SPOKE TO: JENNIFER
--- NOTE | 2020-06-01 22:50 | NUR ---
Spoke with Dr. Sarah. Order received to hold Heparin Drip.
--- NOTE | 2020-06-01 22:55 | NUR ---
Heparin Drip Off.
--- NOTE | 2020-06-01 22:55 | NUR ---
Heparin Drip turned off.
--- NOTE | 2020-06-01 23:40 | NUR ---
B/P 157/92, P 104. Neosynephrine Drip turned off.
--- NOTE | 2020-06-01 23:45 | NUR ---
B/P 152/89, P 110. Levophed drip decreased to 0.97 mcg/kg/min.
[2020-06-01] MEDS ORDERED: NOREPINEPHRINE 4 MG/4 ML VIAL IV ONE (23:46)
[2020-06-01] MEDS ORDERED: PANTOPRAZOLE SODIUM 40 MG/VIAL (PROTONIX) ONE (23:56)
[2020-06-02] VITALS (34 sets, daily range): BP systolic 49–164
--- NOTE | 2020-06-02 | NUR ---
B/P 158/93, P 102. Levophed drip decreased to 0.94 mcg/kg/min.
--- NOTE | 2020-06-02 00:05 | NUR ---
B/P 158/93, P 111. Levophed drip decreased to 0.91 mcg/kg/min.
--- NOTE | 2020-06-02 00:12 | NUR ---
Specimen for occult blood collected and sent to lab.
--- NOTE | 2020-06-02 00:20 | NUR ---
B/P 157/92, P 103, SPO2 99%. Levophed drip decreased to 0.91 mcg/kg/min. Addendum: 06/02/20 at 0038 by Sánchez Baker RN EIC: B/P 157/92, P 103, SPO2 99%. Levophed drip decreased to 0.88 mcg/kg/min.
--- NOTE | 2020-06-02 00:30 | NUR ---
B/P 156/93, P 106, SPO2 100%. Levophed drip decreased to 0.85 mcg/kg/min.
--- NOTE | 2020-06-02 00:35 | NUR ---
B/P 157/93, P 100, SPO2 100%. Levophed drip decreased to 0.82 mcg/kg/min.
--- NOTE | 2020-06-02 00:40 | NUR ---
B/P 157/93, P 98, SPO2 98%. Levophed drip decreased to 0.79 mcg/kg/min. Cooling [place] remains in place. Rectal Temp 102.3.
[2020-06-02] MEDS: PIPERACILLIN/TAZO 2.25G/DEX-IS 50 ML IV SCH ×4 (00:49→12:00)
--- NOTE | 2020-06-02 01:00 | NUR ---
Cooling blanket removed as it is no longer cool to touch. Rectal probe left in place for temperature monitoring. Ice packs applied to neck, axilla, and groin.
--- NOTE | 2020-06-02 01:00 | NUR ---
Rectal Temp 102.3.
[2020-06-02] MEDS: FUROSEMIDE 40 MG/4 ML VIAL IVP SCH ×4 (03:00→21:00)
--- NOTE | 2020-06-02 04:00 | NUR ---
Rectal temp 101.6. New ice packs applied to neck, axilla, and groin. IVFs and Drips infusing without difficulty. No further BM noted.
--- NOTE | 2020-06-02 06:00 | NUR ---
Moderate amount of black watery BM. Dressing to Left Femoral Arterial line soiled with stool. Pt cleaned. Soiled dressing to artline removed and stool noted to visible portion of angiocath near suture line. Site cleaned using sterile technique and new dressing applied.
[2020-06-02] MEDS ORDERED: NOREPINEPHRINE 4 MG/4 ML VIAL IV ONE (06:35)
[2020-06-02 07:09] LABS: BASOPHILS # (AUTO) 0.1 K/uL (0.0-0.2); BASOPHILS % (AUTO) 0.5 % (0.0-2.0); HEMOGLOBIN 9.1 g/dL (12.0-16.0); LYMPHOCYTES % (AUTO) 9.7 % (20.5-51.5); MEAN CORPUSCULAR HEMOGLOBIN 31 pg (27-31); MEAN CORPUSCULAR HGB CONC 34 % (32-36); MEAN CORPUSCULAR VOLUME 91 fL (79.0-98.0); MONOCYTES # (AUTO) 1.2 K/uL (0.0-1.0); MONOCYTES % (AUTO) 5.7 % (1.7-9.3); NEUTROPHILS # (AUTO) 17.4 K/uL (1.8-7.7); PLATELET COUNT (AUTO) 50 K/uL (130-430); RED BLOOD CELL COUNT(AUTO) 2.97 MIL/uL (4.2-6.2); WHITE BLOOD COUNT (AUTO) 20.7 K/uL (4.8-10.8)
--- NOTE | 2020-06-02 07:10 | NUR ---
Dr. Gómez at bedside and pt status update provided. New orders received to discontinue Left Femoral Arterial Line and place pt on sedation vaction. Vent FiO2 decreased to 40% per Dr. Gómez.
--- NOTE | 2020-06-02 07:15 | NUR ---
Pt report given to oncoming RN.
--- NOTE | 2020-06-02 07:30 | NUR ---
Opening Notes Patient in bed, no signs of distress at this time. Patient connected to shelter monitor with sinus tachycardia, HR in the 115s. Patient intubated and on the ventilator with settings AC 18, tidal volume 380, FiO2 40%, PEEP 5. Patient with RIJ and LIJ central line receiving D5W + 3 amps of bicarbonate at 125 ml/hr, levophed at 0.79 mcg/kg/min, and diprivan at 5 mg/hr. Patient has a femoral arterial line in place. Patient also has a CVP monitoring in place. Patient with a coronado catheter draining yellow urine. Safety precautions enforced.
[2020-06-02] MEDS: PROPOFOL DRIP 100 ML IV PRN (07:35)
[2020-06-02 07:46] LABS: POTASSIUM 2.6 mmol/L (3.5-5.1)
[2020-06-02 07:47] LABS: ALBUMIN 1.7 g/dL (3.4-4.8); CREATININE 4.94 mg/dL (0.55-1.30); TOTAL BILIRUBIN 0.7 mg/dL (0.0-1.0)
[2020-06-02 07:54] LABS: C-REACTIVE PROTEIN QUANT 10.9 mg/dL (0-0.5)
[2020-06-02 08:24] LABS: CKMB RELATIVE INDEX 0.1 (0.0-2.9); CREATINE KINASE MB 6.5 ng/mL (0-3.6)
[2020-06-02] MEDS ORDERED: POTASSIUM CHLORIDE 20 MEQ/PKT PACKET PO ONE (08:30)
[2020-06-02] MEDS ORDERED: POTASSIUM CHLORIDE 40 MEQ in NS 250 ML IV ONE (08:30)
[2020-06-02] MEDS ORDERED: CALCIUM GLUCONATE 1 GM in NS 100 ML IV ONE (08:30)
[2020-06-02] MEDS: LINEZOLID 300 ML IV SCH (08:55)
[2020-06-02] MEDS: levETIRAcetam 500 MG TABLET PO SCH ×3 (08:56→22:10)
[2020-06-02] MEDS: BALSAM PERU/CASTOR OIL 60 GM OINT...G. TP SCH (09:00)
[2020-06-02] MEDS ORDERED: PANTOPRAZOLE SODIUM 40 MG/VIAL (PROTONIX) IVP SCH (09:00)
[2020-06-02 09:01] LABS: NEUTROPHILS % (AUTO) 84.1 % (40.0-70.0)
[2020-06-02 09:03] LABS: ERYTHROCYTE SEDIMENTATION RATE 14 MM/HR (0-20)
--- NOTE | 2020-06-02 09:40 | NUR ---
Paged and spoke with Dr. Catarina Sarah regarding critical lab levels and current patient condition. Informed MD that patient is receiving max dose of vasopressors. Patient noted to have large amount of black, liquid stool. Also informed MD regarding that. No new orders received.
--- NOTE | 2020-06-02 09:45 | NUR ---
Paged and spoke with Dr. Tala Sarah regarding contacting next of kin. Updated MD regarding patient's current condition.
--- NOTE | 2020-06-02 10:14 | NUR ---
Code status update Dr. Sarah called back and informed me that Connie (sister) is contacting son, who is currently in longterm, regarding plan on end of life care as she does not want to make patient decision. Family will contact unit and will be allowed in hospital grounds per director/radio time sales supervisor approval.
--- NOTE | 2020-06-02 10:23 | NUR ---
Update: Next of Kin Patient's sister Connie and cousin Jagruti visiting patient. Connie states patient's son Dung Goodman is in [facility] in [place], [place]. Informed Missy LEHMAN
--- NOTE | 2020-06-02 10:58 | NUR ---
Record Filing Clerk Note Received a call from Angie SALGUERO. Patient has very poor prognosis. Her son is in alf. Other family members would like him to make the code decisions. Legally, patient's sister, with whom she lives, could make the decision. Phoned [facility] in [place], . Spoke with Chaplain Bello, direct number [phone]. He will attempt to locate patient's son, Dung Goodman III and call back. Addendum: 06/02/20 at 1234 by Missy Obrien LCSW Dung came to the reference assistant's office. Transferred the call to Angie SALGUERO in the ICU. She spoke with Dung. Dung would like to talk with the doctor before making decisions on patient's code status. Angie will provide Dr Sarah with the contact number for the reference assistant. Phoned Zeeshan Rapp, , patient's nephew. He is making arrangements to come down [facility]. Discussed that it seems Dung will make the code decisions. Also discussed that his mother, Connie Rapp, cannot live alone. He plans to take her up to live with him. Discussed mortuary arrangements. Provided him with two inexpensive cremation options. The family has used [employer] in the past and will probably use them again. Will remain available.
--- NOTE | 2020-06-02 12:15 | NUR ---
Spoke with pt's son Dung Goodman III via Chaplain Bello regarding pt's current condition. Dung states he would like physician to call him regarding his mother's care.
--- NOTE | 2020-06-02 12:25 | NUR ---
Dr. Tala Sarah paged and return call. Informed Dr. Sarah regarding pt's son Dung Goodman and provided number for contact.
[2020-06-02] MEDS: FLUCONAZOLE 100 mg/ NS 50 ML IV SCH (13:48)
--- NOTE | 2020-06-02 14:00 | NUR ---
RN Rounds Patient remains to have decreased blood pressure, vasopressors being titrated per MD order. Patient with moderate oral secretions out. Patient unable to be turned due to being unstable. Safety precautions enforced.
--- NOTE | 2020-06-02 14:30 | NUR ---
Spoke to Dung Goodman III, patient's son, via Chaplain Bello regarding patient's current condition. Per son, patient to remain full code at this time.
--- NOTE | 2020-06-02 16:00 | NUR ---
RN Rounds Patient with decreased blood pressure. Patient noted to have progressively decreasing heart rate. Patient orally suctioned. Patient unable to be turned due to critical condition. Primary MD and consulting physicians aware of patient condition.
--- NOTE | 2020-06-02 17:55 | NUR ---
CONSULT GI CONSULTING MD: DR. VASQUEZ SPOKE TO: DAVIDA DIALED: [phone] ORDERED BY: DR. Tala LOPEZ
--- NOTE | 2020-06-02 18:00 | NUR ---
RN Rounds Patient remains to have decreased blood pressure. Patient being monitored closely. Safety precautions enforced.
--- NOTE | 2020-06-02 19:20 | NUR ---
Closing Notes Patient endorsed to home appliance washing machine mechanic RN using SBAR format. Patient with decreased BP. Patient on maximum dose of levophed at neosynephrine.
--- NOTE | 2020-06-02 19:30 | NUR ---
Opening note: Report received from day RN. Assuming care now.
--- NOTE | 2020-06-02 19:35 | NUR ---
Family called, update given based on report. Going to assess patient now.
[2020-06-02] MEDS: PANTOPRAZOLE SODIUM 40 MG in NS 50 ML IV SCH (20:00)
[2020-06-03] VITALS (36 sets, daily range): BP systolic 85–145
[2020-06-03] MEDS: PANTOPRAZOLE SODIUM 40 MG in NS 50 ML IV SCH ×4 (02:21→21:28)
[2020-06-03] MEDS: FUROSEMIDE 40 MG/4 ML VIAL IVP SCH ×3 (03:00→15:00)
[2020-06-03 06:01] LABS: BASOPHILS % (AUTO) 0.2 % (0.0-2.0); EOSINOPHILS % (AUTO) 0.2 % (0.0-4.0); HEMATOCRIT 25.3 % (36-48); HEMOGLOBIN 8.3 g/dL (12.0-16.0); LYMPHOCYTES # (AUTO) 1.2 K/uL (1.0-5.5); LYMPHOCYTES % (AUTO) 6.7 % (20.5-51.5); MEAN CORPUSCULAR HEMOGLOBIN 30 pg (27-31); MEAN CORPUSCULAR HGB CONC 33 % (32-36); MEAN CORPUSCULAR VOLUME 92 fL (79.0-98.0); MONOCYTES # (AUTO) 1.3 K/uL (0.0-1.0); MONOCYTES % (AUTO) 7.2 % (1.7-9.3); NEUTROPHILS # (AUTO) 15.8 K/uL (1.8-7.7); NEUTROPHILS % (AUTO) 85.7 % (40.0-70.0); RED BLOOD CELL COUNT(AUTO) 2.76 MIL/uL (4.2-6.2); RED CELL DISTRIBUTION WIDTH 14.7 % (9.0-15.0); WHITE BLOOD COUNT (AUTO) 18.4 K/uL (4.8-10.8)
[2020-06-03 06:03] LABS: ALBUMIN 1.6 g/dL (3.4-4.8); CREATININE 4.62 mg/dL (0.55-1.30); PHOSPHORUS 3.7 mg/dL (2.7-4.5); TOTAL BILIRUBIN 0.7 mg/dL (0.0-1.0)
[2020-06-03] MEDS: PIPERACILLIN/TAZO 2.25G/DEX-IS 50 ML IV SCH ×4 (06:20→17:59)
[2020-06-03 06:23] LABS: CALCIUM 6.1 mg/dL (8.4-11.0); POTASSIUM 2.9 mmol/L (3.5-5.1)
[2020-06-03] MEDS: SODIUM BICARBONATE 8.4% VIAL 150 MEQ in D5W 1,000 ML IV SCH ×2 (06:41→08:09)
[2020-06-03 06:46] LABS: CKMB RELATIVE INDEX 0.3 (0.0-2.9); CREATINE KINASE MB 16.9 ng/mL (0-3.6)
--- NOTE | 2020-06-03 06:55 | NUR ---
Dr Sarah notified of critical lab results and new orders received.
[2020-06-03] MEDS ORDERED: CALCIUM GLUCONATE 1 GM/10 ML VIAL IVP ONE (07:00)
--- NOTE | 2020-06-03 07:15 | NUR ---
Opening Notes Patient received awake and able to nod and shake head when asked simple questions. Patient connected to patient portal representative with sinus tachycardia, HR in the 110s. Patient intubated and on ventilator with settings AC 18, tidal volume 380, FiO2 40%, PEEP 5. Patient with RIJ dialysis catheter with a pigtail port, LIJ triple lumen central line with CVP monitoring in place, left femoral arterial line. Patient receiving D5W + 3 amps of bicarbonate at 125 mls/hr, levophed at 0.3 mcg/kg/min, and protonix drip at 8 mg/hr. Patient has a right nare NGT clamped, tubefeeding held at this time. Patient has a coronado catheter draining urine. Safety precautions enforced. Call light within reach.
[2020-06-03 07:18] LABS: ERYTHROCYTE SEDIMENTATION RATE 16 MM/HR (0-20)
[2020-06-03 07:29] LABS: PLATELET COUNT (AUTO) 40 K/uL (130-430)
[2020-06-03] MEDS ORDERED: KCL 40 mEq in 100 mL (PREMIX) 100 ML IV ONE (07:30)
[2020-06-03] MEDS ORDERED: CALCIUM GLUCONATE 1 GM in NS 100 ML IV ONE (08:00)
[2020-06-03] MEDS: levETIRAcetam 500 MG TABLET PO SCH ×2 (08:09→21:29)
[2020-06-03] MEDS ORDERED: MAGNESIUM SULFATE 4 GM in D5W 250 ML IV ONE (09:00)
[2020-06-03] MEDS: BALSAM PERU/CASTOR OIL 60 GM OINT...G. TP SCH (09:00)
[2020-06-03 09:18] LABS: C-REACTIVE PROTEIN QUANT 7.4 mg/dL (0-0.5)
--- NOTE | 2020-06-03 10:00 | NUR ---
Visitation Family requested to see patient in person. Per critical care unit manager, family allowed to visit. Informed family to set appointment time with primary RN.
--- NOTE | 2020-06-03 10:30 | NUR ---
MD Rounds Dr. Moeller bedside for examination. No new orders received.
--- NOTE | 2020-06-03 12:00 | NUR ---
RN Rounds Patient awake and able to follow some commands, patient in no signs of distress at this time. Safety precautions enforced.
--- NOTE | 2020-06-03 12:00 | NUR ---
RN Rounds Dr. Gómez at bedside for examination. No new orders received.
--- NOTE | 2020-06-03 13:02 | NUR ---
CONSULT HEMATOLOGY CONSULTING MD: DR. GEORGE SPOKE TO: QUIRINO DIALED: [phone] ORDERED BY: DR. Tala LOPEZ
[2020-06-03] MEDS: FLUCONAZOLE 100 mg/ NS 50 ML IV SCH (13:46)
--- NOTE | 2020-06-03 14:00 | NUR ---
Wound care Wound care performed and dressing changed. Patient tolerated well. No signs of distress noted.
--- NOTE | 2020-06-03 14:30 | NUR ---
CHG CHG bath given and linens changed. Patient tolerated well. Patient turned and repositioned.
--- NOTE | 2020-06-03 16:00 | NUR ---
RN Rounds Patient in no signs of distress at this time. BP being monitored continuously. Patient opens eyes and able to respond to some commands. Patient orally suctioned with thin, small amount of secretions. Safety precautions enforced.
[2020-06-03 17:37] LABS: HEMATOCRIT 23.4 % (36-48); HEMOGLOBIN 7.8 g/dL (12.0-16.0); LYMPHOCYTES # (AUTO) 0.9 K/uL (1.0-5.5); MEAN CORPUSCULAR HEMOGLOBIN 31 pg (27-31); MEAN CORPUSCULAR HGB CONC 33 % (32-36); MONOCYTES # (AUTO) 1.1 K/uL (0.0-1.0); MONOCYTES % (AUTO) 7.6 % (1.7-9.3)
[2020-06-03 17:46] LABS: BASOPHILS % (AUTO) 0.2 % (0.0-2.0); EOSINOPHILS % (AUTO) 0.2 % (0.0-4.0); LYMPHOCYTES % (AUTO) 6.3 % (20.5-51.5); MEAN CORPUSCULAR VOLUME 91 fL (79.0-98.0); NEUTROPHILS # (AUTO) 12.2 K/uL (1.8-7.7); NEUTROPHILS % (AUTO) 85.7 % (40.0-70.0); RED BLOOD CELL COUNT(AUTO) 2.56 MIL/uL (4.2-6.2); RED CELL DISTRIBUTION WIDTH 14.8 % (9.0-15.0); WHITE BLOOD COUNT (AUTO) 14.3 K/uL (4.8-10.8)
[2020-06-03 17:52] LABS: PLATELET COUNT (AUTO) 38 K/uL (130-430)
[2020-06-03] MEDS: NOREPINEPHRINE BITARTRATE 16 MG in D5W 234 ML IV PRN (17:59)
[2020-06-03 18:25] LABS: PROTHROMBIN TIME 10.4 SECS (9.5-12.5)
[2020-06-03 19:11] LABS: ERYTHROCYTE SEDIMENTATION RATE 23 MM/HR (0-20)
--- NOTE | 2020-06-03 19:13 | NUR ---
PAGED FOR ORDERS DIALED: [phone] SPOKE TO: AUTOMATED EXCHANGE
--- NOTE | 2020-06-03 19:16 | NUR ---
Closing Notes Patient endorsed to monument setter RN using SBAR format. Patient in no signs of distress at this time.
--- NOTE | 2020-06-03 19:30 | NUR ---
Opening note: Report received from day RN. Assuming care now.
--- NOTE | 2020-06-03 21:40 | NUR ---
rt notes 1899 Dr Gómez ordered ABG on AC 18 vent settings. 2049 abg done. see lab results. 2119 dr gómez ordered to lower VT from 380 to 300ml, lower set rate from 18 to 12. execute order. coaching pt to take deep breaths, pt tolerating vent changes as of now. no distress noted. NOEMY daigle aware. will continue to monitor pt. will endorse changes to AM RT.
--- NOTE | 2020-06-03 21:45 | NUR ---
Dr Gómez notified of ABG results, orders received.
[2020-06-04] VITALS (35 sets, daily range): BP systolic 83–126
[2020-06-04] MEDS: PIPERACILLIN/TAZO 2.25G/DEX-IS 50 ML IV SCH ×3 (00:13→11:05)
[2020-06-04] MEDS: PANTOPRAZOLE SODIUM 40 MG in NS 50 ML IV SCH ×4 (02:28→12:24)
[2020-06-04 05:56] LABS: BASOPHILS % (AUTO) 0.2 % (0.0-2.0); HEMOGLOBIN 7.6 g/dL (12.0-16.0); LYMPHOCYTES # (AUTO) 0.6 K/uL (1.0-5.5); LYMPHOCYTES % (AUTO) 4.6 % (20.5-51.5); MEAN CORPUSCULAR HEMOGLOBIN 31 pg (27-31); MEAN CORPUSCULAR HGB CONC 33 % (32-36); MONOCYTES # (AUTO) 1.2 K/uL (0.0-1.0); MONOCYTES % (AUTO) 8.7 % (1.7-9.3); NEUTROPHILS # (AUTO) 11.8 K/uL (1.8-7.7); NEUTROPHILS % (AUTO) 86.5 % (40.0-70.0); RED BLOOD CELL COUNT(AUTO) 2.46 MIL/uL (4.2-6.2); RED CELL DISTRIBUTION WIDTH 14.7 % (9.0-15.0); WHITE BLOOD COUNT (AUTO) 13.7 K/uL (4.8-10.8)
[2020-06-04 06:07] LABS: MEAN CORPUSCULAR VOLUME 93 fL (79.0-98.0)
[2020-06-04 06:08] LABS: PLATELET COUNT (AUTO) 39 K/uL (130-430)
[2020-06-04 06:29] LABS: ALBUMIN 1.6 g/dL (3.4-4.8); C-REACTIVE PROTEIN QUANT 5.3 mg/dL (0-0.5); CREATININE 4.38 mg/dL (0.55-1.30); PHOSPHORUS 3.2 mg/dL (2.7-4.5); TOTAL BILIRUBIN 0.9 mg/dL (0.0-1.0)
[2020-06-04 06:51] LABS: POTASSIUM 2.6 mmol/L (3.5-5.1)
[2020-06-04 06:57] LABS: TOTAL IRON BIND. CAPACITY 153 ug/dL (250-450)
--- NOTE | 2020-06-04 07:30 | NUR ---
RT NOTES FIO2 to 0.30 per ABG result, rn notified.
--- NOTE | 2020-06-04 07:30 | NUR ---
Opening Note Patient report received via SBAR from endorsing RN
[2020-06-04 07:41] LABS: ERYTHROCYTE SEDIMENTATION RATE 44 MM/HR (0-20)
[2020-06-04] MEDS: BALSAM PERU/CASTOR OIL 60 GM OINT...G. TP SCH (08:08)
[2020-06-04] MEDS: levETIRAcetam 500 MG TABLET PO SCH ×2 (08:08→22:06)
[2020-06-04] MEDS: LORazepam 2 MG/ML VIAL IVP PRN (08:08)
[2020-06-04] MEDS: NOREPINEPHRINE BITARTRATE 16 MG in D5W 234 ML IV PRN (08:12)
[2020-06-04] MEDS ORDERED: KCL 40 mEq in 100 mL (PREMIX) 100 ML IV ONE ×2 (08:15→15:00)
--- NOTE | 2020-06-04 08:45 | NUR ---
ROUND Dr. Berrios in to see patient, no new orders
--- NOTE | 2020-06-04 10:00 | NUR ---
ROUND Dr. Quiroga in to see patient, no new orders
[2020-06-04] MEDS: MORPHINE 2 MG/ML INJ. SYRINGE IVP PRN ×3 (11:05→22:13)
--- NOTE | 2020-06-04 11:30 | NUR ---
ROUND Dr. Mcmahan in to see patient, physician entered orders
[2020-06-04] MEDS: FLUCONAZOLE 100 mg/ NS 50 ML IV SCH (12:18)
[2020-06-04] MEDS: CEFEPIME 0.5 GM in D5W 50 ML IV SCH (13:00)
--- NOTE | 2020-06-04 13:26 | NUR ---
Nutrition F/U RD reviewed pt's current EMR record including diet Hx, physician notes, nursing notes, pertinent labs/meds/procedures, care trends, and care activity. Admission Dx: Renal Failure, Sepsis PMH: Pt presents w/: Sepsis, Septic shock, Leukocytosis, Acute Respiratory Failure, Vent dependent, Hypernatremia, Hyperkalemia, SARAHY, CKD, hyperglycemia, Lactic acidosis, Transaminitis, Rhabdomyolysis, Elevated troponin level, Possible UTI, Meth abuse, LLE PVD, Encephalopathy (metabolic/septic) per MD notes. SARS-CoV-2 Ag Rapid 05/30 Negative COVID-19 PCR 05/31 Pending Current Diet Order/Nutrition Support: Nepro at 25 ml/hr (goal rate), Free Water Flush: 140 q6hrs via NGT x3 days Subjective Info: Pt seen resting in bed, eyes open, intubated on vent, non-verbal, w/ NGT to R nares infusing Nepro at 25 ml/hr (453 ml infused; 815 kcal), and propofol infusing at 2.449 ml/hr (65 kcal/day). RN reported that pt seems to be tolerating TF well, low residuals, an some loose stool today x1 and x4 last night per operation shift supervisor report. RN stated that pt is seemingly unstable, but plan is for pt to have an EGD if/when medical condition improves. Pertinent Medications: piperacillin/tazobactam, keppra, heparin, propofol Pertinent Labs: K 2.6 L, BG 133 H, BUN 90 H, CRE 4.38 H, AST 253 H, ALT 124 H, WBC 13.7 H, ALB 1.6 L Skin Integrity Comment: Carlos scale: 10. Per Pole Climber note 06/01: multiple sDTIs noted; please refer to note for details; per nursing notes: L arm w/ non-pitting edema Current % PO N/A, NPO NEW Estimated Energy Expenditure (kcals/day) 1204 kcal/day (PSU for critical illness on vent) -- minute volume: 9.9/temperature: 37.2 degrees C Estimated Protein Required (g/day) 65-82gm/day (1.2-1.5 gm/kg IBW for wound healing and renal dz to start HD) Estimated Fluid Required (l/day) per MD (Renal disease) Problem/Etiology/Signs/Symptoms Predicted suboptimal nutrient intake r/t diet order 2/2 medical condition AEB NPO status. *improved w/ EN support Altered nutrition-related labs r/t renal dysfunction AEB elevated BUN and SCre lab values and Hx of Renal Disease. *ongoing, seemingly slight improvement in renal labs Altered nutrition-related labs r/t medication interaction AEB elevated BG lab values and steroid. *ongoing, seemingly slight improvement in renal labs Increased nutrient needs r/t metabolic demands AEB estimated calories and protein for wound healing. *ongoing Expected Outcomes/Goals Monitor initiation of nutrition support and intake w/ goal of pt meeting more than 75% of estimated nutritional needs, labs trending WNL, normal GI function, skin integrity/wt maintenance. Dietitian Recommendations *Recommend Nepro at 25ml/hr (goal rate), Magdy BID, Free Water Flush: 140ml Q6H via NGT Provides: 1240 kcal/day, 54 gm protein/day, and 996 ml free water/day Meets: 103% of estimated caloric needs and 83% of lower end of estimated protein needs Follow Up High Risk: F/U in 2-3 days
[2020-06-04] MEDS: CLINDAMYCIN 600 MG in D5W 50 ML IV SCH (13:33)
--- NOTE | 2020-06-04 13:38 | NUR ---
Dietitian Recommendations *Recommend Nepro at 25ml/hr (goal rate), Magdy BID, Free Water Flush: 140ml Q6H via NGT Provides: 1240 kcal/day, 54 gm protein/day, and 996 ml free water/day Meets: 103% of estimated caloric needs and 83% of lower end of estimated protein needs LP, RD Please refer to Nutrition F/U for details.
[2020-06-04] MEDS ORDERED: NS 500 ML IV ONE (14:45)
--- NOTE | 2020-06-04 14:50 | NUR ---
ROUND Dr. Gómez in to see patient, new orders entered. CVP monitoring discontinued as per physician
--- NOTE | 2020-06-04 15:40 | NUR ---
RT NOTES Vent settings to cpap [address] order. no immediate adverse reactions noted. @1600 pt cont to tolerate cpap well, no signs of distress noted.
--- NOTE | 2020-06-04 16:34 | NUR ---
RT NOTES Vent settings back to previous settings, pt tolerated cpap trial well.
--- NOTE | 2020-06-04 17:10 | NUR ---
ROUND Dr. Spears in to see patient, physician entered orders
--- NOTE | 2020-06-04 17:20 | NUR ---
ROUND Dr. Issac Sarah in to see patient, physician entered orders
--- NOTE | 2020-06-04 19:23 | NUR ---
CLOSING NOTE Patient report given via SBAR to nightshift RN
[2020-06-04] MEDS: PANTOPRAZOLE SODIUM 40 MG/VIAL (PROTONIX) IVP SCH (22:05)
[2020-06-05] VITALS (34 sets, daily range): BP systolic 89–137
[2020-06-05] MEDS: CEFEPIME 0.5 GM in D5W 50 ML IV SCH ×2 (01:00→12:39)
[2020-06-05] MEDS: MORPHINE 2 MG/ML INJ. SYRINGE IVP PRN ×3 (05:13→18:51)
[2020-06-05 06:59] LABS: ALBUMIN 1.7 g/dL (3.4-4.8); CREATININE 3.99 mg/dL (0.55-1.30); PHOSPHORUS 4.1 mg/dL (2.7-4.5); TOTAL BILIRUBIN 0.8 mg/dL (0.0-1.0)
[2020-06-05 07:05] LABS: BASOPHILS % (AUTO) 0.1 % (0.0-2.0); EOSINOPHILS % (AUTO) 0.2 % (0.0-4.0); LYMPHOCYTES # (AUTO) 0.6 K/uL (1.0-5.5); LYMPHOCYTES % (AUTO) 3.4 % (20.5-51.5); MEAN CORPUSCULAR HEMOGLOBIN 31 pg (27-31); MEAN CORPUSCULAR HGB CONC 32 % (32-36); MONOCYTES # (AUTO) 1.2 K/uL (0.0-1.0); NEUTROPHILS # (AUTO) 15.1 K/uL (1.8-7.7); NEUTROPHILS % (AUTO) 89.3 % (40.0-70.0); PLATELET COUNT (AUTO) 51 K/uL (130-430); RED BLOOD CELL COUNT(AUTO) 2.22 MIL/uL (4.2-6.2); RED CELL DISTRIBUTION WIDTH 15.5 % (9.0-15.0); WHITE BLOOD COUNT (AUTO) 16.9 K/uL (4.8-10.8)
[2020-06-05 07:17] LABS: MEAN CORPUSCULAR VOLUME 96 fL (79.0-98.0)
[2020-06-05 07:19] LABS: HEMATOCRIT 21.5 % (36-48); HEMOGLOBIN 6.8 g/dL (12.0-16.0)
[2020-06-05] MEDS: NOREPINEPHRINE BITARTRATE 16 MG in D5W 234 ML IV PRN (07:21)
--- NOTE | 2020-06-05 07:23 | NUR ---
RT NOTES vent to cpap 5 ps 10 per daily trial. will monitor pt.
--- NOTE | 2020-06-05 07:28 | NUR ---
Opening Note Patient report received via SBAR from endorsing RN
[2020-06-05 07:42] LABS: POTASSIUM 2.5 mmol/L (3.5-5.1)
[2020-06-05 07:45] LABS: CALCIUM 6.9 mg/dL (8.4-11.0)
[2020-06-05] MEDS: levETIRAcetam 500 MG TABLET PO SCH ×2 (08:04→20:22)
[2020-06-05] MEDS: PANTOPRAZOLE SODIUM 40 MG/VIAL (PROTONIX) IVP SCH ×2 (08:05→20:22)
[2020-06-05] MEDS: BALSAM PERU/CASTOR OIL 60 GM OINT...G. TP SCH (08:05)
[2020-06-05 08:07] LABS: ERYTHROCYTE SEDIMENTATION RATE 66 MM/HR (0-20)
[2020-06-05] MEDS: LORazepam 2 MG/ML VIAL IVP PRN (08:10)
[2020-06-05] MEDS ORDERED: KCL 40 mEq in 100 mL (PREMIX) 100 ML IV ONE ×2 (08:15→13:00)
--- NOTE | 2020-06-05 08:25 | NUR ---
RT NOTES Vent settings back to previous settings, per cpap trial only.
--- NOTE | 2020-06-05 08:25 | NUR ---
MD ROUND Dr. Quiroga in to see patient, physician aware about critical labs and new orders entered
--- NOTE | 2020-06-05 08:50 | NUR ---
ROUND Dr. Berrios in to see patient, no new orders
--- NOTE | 2020-06-05 08:50 | NUR ---
ABG results relayed to Dr. Gómez.
--- NOTE | 2020-06-05 09:30 | NUR ---
ROUND Dr. Mcmahan informed about patient condition, no new orders
--- NOTE | 2020-06-05 10:10 | NUR ---
ROUND Dr. Spears in to see patient, physician entered orders
[2020-06-05] MEDS: CLINDAMYCIN 600 MG in D5W 50 ML IV SCH ×3 (10:45)
[2020-06-05] MEDS ORDERED: CALCIUM GLUCONATE 2 GM in NS 100 ML IV ONE (10:45)
--- NOTE | 2020-06-05 12:05 | NUR ---
BT INITIATION: Consent signed per family agreeing to administration of blood. Blood has been type and crossmatched. Blood sent from blood bank. Information on unit of blood checked against patient wristband at bedside by two nurses. All information matches. Patient or responsible democrat informed of potential complications associated with blood transfusion. Informed of possible transfusion reaction symptoms. Aware of need to notify nurse at once of itching, shortness of breath, flushing, feeling of impending doom, or other symptoms not previously present. Vital signs taken within 5 minutes prior to initiation of transfusion. RN will remain with patient for first 15 minutes of transfusion at which time vital signs will be re-assessed.
--- NOTE | 2020-06-05 12:15 | NUR ---
CINTHIA Rivers in to see patient for Dr. Pena, no new orders
--- NOTE | 2020-06-05 13:10 | NUR ---
ROUND Dr. Gómez in to see patient, new orders entered
[2020-06-05] MEDS: FLUCONAZOLE 100 mg/ NS 50 ML IV SCH (13:16)
--- NOTE | 2020-06-05 14:05 | NUR ---
BT INITIATION: Consent signed per family agreeing to administration of blood. Blood has been type and crossmatched. Blood sent from blood bank. Information on unit of blood checked against patient wristband at bedside by two nurses. All information matches. Patient or responsible green party informed of potential complications associated with blood transfusion. Informed of possible transfusion reaction symptoms. Aware of need to notify nurse at once of itching, shortness of breath, flushing, feeling of impending doom, or other symptoms not previously present. Vital signs taken within 5 minutes prior to initiation of transfusion. RN will remain with patient for first 15 minutes of transfusion at which time vital signs will be re-assessed.
[2020-06-05] MEDS: NACL 0.9% 1,000 ML IV SCH (15:12)
--- NOTE | 2020-06-05 17:00 | NUR ---
Nursing Note Patient's femoral arterial line removed as prescribed, pressure dressing applied. Pressure applied to site until no sign of bleeding noted. Patient tolerated well
--- NOTE | 2020-06-05 17:30 | NUR ---
Nursing Note Patient's wound care performed, patient's linens changed, patient repositioned and pulled up in bed. Patient tolerated well
--- NOTE | 2020-06-05 17:50 | NUR ---
MD ROUND Dr. Sarah in to see patient, physician entered orders
--- NOTE | 2020-06-05 19:22 | NUR ---
PAGED DR. POP [phone] NO ONE ANSWERED
--- NOTE | 2020-06-05 19:30 | NUR ---
PM ASSESSMENT REPORT RECEIVED FROM MANJINDER RN. PT RECEIVED IN BED WITH EYES CLOSED, RESPONDING TO TACTILE STIMULATION. VSS, NO S/S OF ACUTE DISTRESS NOTED. PT INTUBATED, VENT SETTINGS: AC 12, TV 300, FIO2 30%, PEEP 5. LIJ TLC IN PLACE INFUSING NS @ 100 CC/HR AND LEVOPHED DRIP @ 0.09 MCG/KG/MIN. RIJ NICCI CATH IN PLACE NOTED FOR DIALYSIS ACCESS. L NARE NGT IN PLACE RUNNING NEPRO @ 25. FC IN PLACE DRAINING URINE TO GRAVITY. HOB ELEVATED, BED IN LOWEST POSITION, CALL LIGHT IN REACH. WILL CONTINUE TO MONITOR PT.
--- NOTE | 2020-06-05 19:30 | NUR ---
Closing Note Patient report given to nightshift RN via SBAR
--- NOTE | 2020-06-05 20:15 | NUR ---
DR. POP PER AM SHIFT, PTS AM K WAS 2.5. 80 MEQ KCL ADMINISTERED AND REPEAT K IS 3.2. TRIED TO GET A HOLD OF DR. POP VIA HIS EXCHANGE BUT THERE IS NO ANSWER FROM THE EXCHANGE AFTER MULTIPLE ATTEMPTS. WILL TRY AGAIN IN AM TO REACH MD FOR ORDERS.
[2020-06-06] VITALS (32 sets, daily range): BP systolic 82–121
[2020-06-06] MEDS: CLINDAMYCIN 600 MG in D5W 50 ML IV SCH ×2 (00:42→11:57)
[2020-06-06] MEDS: CEFEPIME 0.5 GM in D5W 50 ML IV SCH ×2 (00:43→13:55)
[2020-06-06] MEDS: NACL 0.9% 1,000 ML IV SCH (01:08)
--- NOTE | 2020-06-06 02:55 | NUR ---
BM PT HAD MODERATE AMOUNT OF LOOSE DARK GREEN STOOL. MELANIE CARE DONE AND LINENS CHANGED. DRESSINGS TO SACRAL WOUNDS SOILED. WOUND CARE PROVIDED TO SACRAL AREA AND CLEAN, DRY DRESSINGS APPLIED. PT TOLERATED WELL. WILL CONTINUE TO MONITOR PT.
--- NOTE | 2020-06-06 07:30 | NUR ---
Opening Notes Pt received from night RN using SBAR.
--- NOTE | 2020-06-06 07:31 | NUR ---
ENDORSEMENT BEDSIDE REPORT GIVEN TO VIRGINIA SALGUERO USING SBAR APPROACH.
[2020-06-06 07:35] LABS: ALBUMIN 1.8 g/dL (3.4-4.8); CALCIUM 7.1 mg/dL (8.4-11.0); CREATININE 2.89 mg/dL (0.55-1.30); PHOSPHORUS 3.4 mg/dL (2.7-4.5); TOTAL BILIRUBIN 0.7 mg/dL (0.0-1.0)
[2020-06-06 07:46] LABS: C-REACTIVE PROTEIN QUANT 3.6 mg/dL (0-0.5)
[2020-06-06 07:47] LABS: POTASSIUM 2.5 mmol/L (3.5-5.1)
[2020-06-06] MEDS ORDERED: POTASSIUM CHLORIDE 20 MEQ/PKT PACKET PO ONE (08:00)
[2020-06-06 08:03] LABS: BASOPHILS # (AUTO) 0.1 K/uL (0.0-0.2); BASOPHILS % (AUTO) 0.5 % (0.0-2.0); HEMATOCRIT 27.2 % (36-48); HEMOGLOBIN 8.9 g/dL (12.0-16.0); LYMPHOCYTES # (AUTO) 0.3 K/uL (1.0-5.5); LYMPHOCYTES % (AUTO) 1.3 % (20.5-51.5); MEAN CORPUSCULAR HEMOGLOBIN 30 pg (27-31); MEAN CORPUSCULAR HGB CONC 33 % (32-36); MEAN CORPUSCULAR VOLUME 92 fL (79.0-98.0); MONOCYTES # (AUTO) 0.9 K/uL (0.0-1.0); MONOCYTES % (AUTO) 4.4 % (1.7-9.3); NEUTROPHILS # (AUTO) 19.3 K/uL (1.8-7.7); NEUTROPHILS % (AUTO) 93.8 % (40.0-70.0); RED BLOOD CELL COUNT(AUTO) 2.94 MIL/uL (4.2-6.2); RED CELL DISTRIBUTION WIDTH 16.7 % (9.0-15.0); WHITE BLOOD COUNT (AUTO) 20.6 K/uL (4.8-10.8)
[2020-06-06 09:03] LABS: PLATELET COUNT (AUTO) 44 K/uL (130-430)
[2020-06-06] MEDS: levETIRAcetam 500 MG TABLET PO SCH ×2 (09:38→20:49)
[2020-06-06] MEDS: PANTOPRAZOLE SODIUM 40 MG/VIAL (PROTONIX) IVP SCH ×2 (09:38→20:49)
[2020-06-06] MEDS: BALSAM PERU/CASTOR OIL 60 GM OINT...G. TP SCH (09:38)
[2020-06-06 10:56] LABS: ERYTHROCYTE SEDIMENTATION RATE 33 MM/HR (0-20)
[2020-06-06] MEDS: POTASSIUM CHLORIDE 20 MEQ/PKT PACKET PO SCH ×2 (11:58→15:30)
[2020-06-06 12:14] LABS: HEPATITIS A AB, IgM Negative (Negative); HEPATITIS B CORE AB, IgM Negative (Negative); HEPATITIS B SURFACE AG Negative (Negative)
[2020-06-06] MEDS: 0.45% NACL 1,000 ML IV SCH ×2 (14:20→23:59)
[2020-06-06] MEDS: FLUCONAZOLE 100 mg/ NS 50 ML IV SCH (14:21)
--- NOTE | 2020-06-06 15:15 | NUR ---
CHG Pt provided CHG with total linen change. Pt tolerated well.
[2020-06-06] MEDS: LORazepam 2 MG/ML VIAL IVP PRN (15:30)
[2020-06-06] MEDS: MORPHINE 2 MG/ML INJ. SYRINGE IVP PRN (15:31)
--- NOTE | 2020-06-06 18:02 | NUR ---
Bowel Movement Pt cleaned and tolerated well. Will continue to monitor.
--- NOTE | 2020-06-06 19:22 | NUR ---
Closing Notes Pt endorsed to night RN using SBAR. VSS at this time.
--- NOTE | 2020-06-06 19:30 | NUR ---
Opening note Received report and assumed care. Patient resting in bed; withdraws from pain and open eyes occasionally. Not following commands. Vent to ETT AC 12 and tolerating settings. LIJ central line patent and infusing levophed. GENA Marsh with pigtale present. Coronel catheter in place and draining urine to gravity. No signs of distress. Patient requires repositioning. Left arm necrotic and elevated with pillow. will continue to monitor as per unit protocol.
[2020-06-06 19:40] LABS: CALCIUM 7.4 mg/dL (8.4-11.0); CREATININE 2.48 mg/dL (0.55-1.30); POTASSIUM 3.8 mmol/L (3.5-5.1)
--- NOTE | 2020-06-06 20:00 | NUR ---
Incontinence care provided. Patient incontinent of stool; watery diarrhea present. patient was cleaned and repositioned for comfort.
--- NOTE | 2020-06-06 21:10 | NUR ---
Assessment completed; medications given. Patient tolerating well.
[2020-06-07] VITALS (32 sets, daily range): BP systolic 92–125
[2020-06-07] MEDS: CLINDAMYCIN 600 MG in D5W 50 ML IV SCH ×3 (00:01→23:53)
[2020-06-07] MEDS: CEFEPIME 0.5 GM in D5W 50 ML IV SCH ×2 (01:00→12:19)
[2020-06-07] MEDS: ACETAMINOPHEN 325 MG TABLET PO PRN ×4 (02:55→22:30)
[2020-06-07] MEDS: NOREPINEPHRINE BITARTRATE 16 MG in D5W 234 ML IV PRN (06:21)
[2020-06-07 06:48] LABS: BASOPHILS # (AUTO) 0.1 K/uL (0.0-0.2); BASOPHILS % (AUTO) 0.5 % (0.0-2.0); HEMATOCRIT 24.5 % (36-48); HEMOGLOBIN 8.1 g/dL (12.0-16.0); LYMPHOCYTES # (AUTO) 0.3 K/uL (1.0-5.5); LYMPHOCYTES % (AUTO) 1.6 % (20.5-51.5); MEAN CORPUSCULAR HEMOGLOBIN 31 pg (27-31); MEAN CORPUSCULAR HGB CONC 33 % (32-36); MEAN CORPUSCULAR VOLUME 92 fL (79.0-98.0); MONOCYTES % (AUTO) 4.5 % (1.7-9.3); NEUTROPHILS # (AUTO) 19.7 K/uL (1.8-7.7); NEUTROPHILS % (AUTO) 93.4 % (40.0-70.0); PLATELET COUNT (AUTO) 73 K/uL (130-430); RED BLOOD CELL COUNT(AUTO) 2.67 MIL/uL (4.2-6.2); RED CELL DISTRIBUTION WIDTH 16.1 % (9.0-15.0)
[2020-06-07 07:06] LABS: ALBUMIN 1.9 g/dL (3.4-4.8); CALCIUM 7.6 mg/dL (8.4-11.0); CREATININE 2.27 mg/dL (0.55-1.30); POTASSIUM 3.3 mmol/L (3.5-5.1); TOTAL BILIRUBIN 0.6 mg/dL (0.0-1.0)
--- NOTE | 2020-06-07 07:30 | NUR ---
Received patient and report. Patient in bed with side rails x 3 up. Call light with in reach.
--- NOTE | 2020-06-07 08:30 | NUR ---
MD Gómez at bedside assessing patient, ordered to decrease levophed drip and have map goal 55 to 60 as acceptable and collect stool for c.diff. Requested MD for flexi seal due to loose stools and to prevent skin breakdown, MD stated no due to possible GI bleed.
[2020-06-07] MEDS: PANTOPRAZOLE SODIUM 40 MG/VIAL (PROTONIX) IVP SCH ×2 (09:32→20:04)
[2020-06-07] MEDS: levETIRAcetam 500 MG TABLET PO SCH ×2 (09:33→20:04)
[2020-06-07] MEDS: BALSAM PERU/CASTOR OIL 60 GM OINT...G. TP SCH (09:33)
[2020-06-07] MEDS ORDERED: KCL 20 mEq in 100 mL (PREMIX) 100 ML IV ONE (11:30)
[2020-06-07] MEDS: FLUCONAZOLE 100 mg/ NS 50 ML IV SCH (12:17)
[2020-06-07] MEDS: MORPHINE 2 MG/ML INJ. SYRINGE IVP PRN (15:25)
--- NOTE | 2020-06-07 15:30 | NUR ---
Dropped off stool sample to lab to test for C.diff. with c.diff form completed.
--- NOTE | 2020-06-07 15:53 | NUR ---
Nutrition F/U RD reviewed pt's current EMR record including diet Hx, physician notes, nursing notes, pertinent labs/meds/procedures, care trends, and care activity. Admission Dx: Renal Failure, Sepsis PMH: Pt presents w/: Sepsis, Septic shock, Leukocytosis, Acute Respiratory Failure, Vent dependent, Hypernatremia, Hyperkalemia, SARAHY, CKD, hyperglycemia, Lactic acidosis, Transaminitis, Rhabdomyolysis, Elevated troponin level, Possible UTI, Meth abuse, LLE PVD, Encephalopathy (metabolic/septic) per MD notes. SARS-CoV-2 Ag Rapid 05/30 Negative COVID-19 PCR 05/31 Negative Current Diet Order/Nutrition Support: Nepro at 25 ml/hr (goal rate), Magdy BID, Free Water Flush: 400 ml Q6H via NGT x0 days Subjective Info: Pt seen resting in bed, eyes closed, intubated on vent, non-verbal, w/ NGT to R nares infusing Nepro at 25 ml/hr (432 ml infused; 778 kcal), and propofol infusing at 2.449 ml/hr (65 kcal/day). RN reported that pt has been tolerating TF, minimal residuals, however, pt has been having loose/diarrhea-like stools since yesterday. Pt may benefit from Banatrol to bulk up stool w/ prebiotic fibers. RN stated pt may possibly have amputation of gangrenous L arm. Pertinent Medications: keppra, heparin, propofol Pertinent Labs: Na 149 H, K 3.3 L, BG 159 H, BUN 87 H, CRE 2.27 H, AST 109 H, ALT 101 H, WBC 21 H, ALB 1.9 L Skin Integrity Comment: Carlos scale: 11. Per Filter Operator note 06/01: multiple sDTIs noted; please refer to note for details Current % PO N/A, NPO NEW Estimated Energy Expenditure (kcals/day) 1274 kcal/day (PSU for critical illness on vent) -- minute volume: 10/temperature: 37.6 degrees C Estimated Protein Required (g/day) 65-82gm/day (1.2-1.5 gm/kg IBW for wound healing and renal dz to start HD) Estimated Fluid Required (l/day) per MD (Renal disease) Problem/Etiology/Signs/Symptoms Predicted suboptimal nutrient intake r/t diet order 2/2 medical condition AEB NPO status. *improved w/ EN support Altered nutrition-related labs r/t renal dysfunction AEB elevated BUN and SCre lab values and Hx of Renal Disease. *ongoing, seemingly slight improvement in renal labs Altered nutrition-related labs r/t medication interaction AEB elevated BG lab values and steroid. *ongoing Increased nutrient needs r/t metabolic demands AEB estimated calories and protein for wound healing. *ongoing Complicate GI function r/t compromised GI function AEB loose stools. *new Expected Outcomes/Goals Monitor initiation of nutrition support and intake w/ goal of pt meeting more than 75% of estimated nutritional needs, labs trending WNL, normal GI function, skin integrity/wt maintenance. Dietitian Recommendations *Recommend Nepro at 25ml/hr (goal rate), Magdy BID, Banatrol BID Free Water Flush: 400 ml Q6H via NGT Provides: 1240 kcal/day, 54 gm protein/day, and 2036 ml free water/day Meets: 97% of estimated caloric needs and 83% of lower end of estimated protein needs Follow Up High Risk: F/U in 2-3 days
--- NOTE | 2020-06-07 15:59 | NUR ---
Dietitian Recommendations *Recommend Nepro at 25ml/hr (goal rate), Magdy BID, Banatrol BID Free Water Flush: 400 ml Q6H via NGT Provides: 1240 kcal/day, 54 gm protein/day, and 2036 ml free water/day Meets: 97% of estimated caloric needs and 83% of lower end of estimated protein needs LP, RD Please refer to Nutrition F/U for details.
--- NOTE | 2020-06-07 19:12 | NUR ---
Endorsed report and patient to NOc shift nurse. Patient in bed with side rails x 3 up. Call light with in reach.
--- NOTE | 2020-06-07 19:15 | NUR ---
change of shift.pt.presents ett/ngt in place.pt.presents rt/lt.inj iv access.iv fluids;maintanence infusing.pt.presents wounds;extensive profuse distribution;multiple.pt.presents lt.arm;necrotic tissue extant.pt.presents coronado cath intact; patent.ventilator present.affect;withdrawn.loc;confused.call light/telephone w/in access of the pt.
--- NOTE | 2020-06-07 20:00 | NUR ---
pt.assessed.v/s assessed;temp status elevated.tylenol:650mg was administered@1800p;tylenol ordered q-4hrs/prn.i have applied cold compresses. ett/ngt in place/intact.ng-tube feed nepro infusing@the rate:25ml/hr.vent settings reviewed correspond to the md's current order. i have attended to the oral care/suctioning.iv access assessed:rt/lt.inj intact;patent iv fluids;maintanance ns-infusing@the rate tko.coronado cath intact;patent urine content present.pt.assessed for cleanliness.pt.repositioned.lt.arm;presents necrosis tissue extant;edema;profound status.pulses undetectable,temp;cold.elevated.general status stable.respiratory stable;unlabored.call light/telephone placed w/in access of the pt. Addendum: 06/08/20 at 0128 by Drew Mann RN o2-sat%=98%. Addendum: 06/08/20 at 0141 by Drew Mann RN per flacc pain mgx pt.absent facial grimaces/body posturing.
--- NOTE | 2020-06-07 21:00 | NUR ---
2100pmedications administered via the ng-tube.residuals assessed:30ml.cold compresses applied;covers removed.temp assessed remains elevated. cleomycin;abx ivpb 2100p dose administered via the lt.inj iv access.
--- NOTE | 2020-06-07 22:00 | NUR ---
pt.assessed.v/s assessed note temp remained elevated.i have administered tylenol:650mg via the ng-tube.ett/ngt intact. ng-tube feed infusing.i have attended to the oral care/suctioning.coronado cath intact;patent urine content present.pt.assessed for cleanliness.pt.repositioned. general status stable.respiratory status stable;unlabored:02-sat%=98%.call light/telephone placed w/in access of the pt. Addendum: 06/08/20 at 0142 by Drew Mann RN per flacc pain mgx pt.absent facial grimaces/body posturing.
[2020-06-08] VITALS (34 sets, daily range): BP systolic 75–153
--- NOTE | 2020-06-08 | NUR ---
pt.assessed.v/s assessed note temp;remained elevated.i have applied additional cold compresses.eet/ngt intact ng-tube feed infusing.i have attended to the oral care/suctioning.rt/lt inj iv access intact;patent iv fluids infusing.coronado cath intact;patent urine content present. pt.assessed for cleanliness.pt.repositioned.general status stable.respiratory status stable;unlabored.02-sat%=98%.per flacc pain mgc pt.absent facial grimaces/body posturing.call light/telephone placed w/in access of the pt.
[2020-06-08] MEDS: CEFEPIME 0.5 GM in D5W 50 ML IV SCH (01:09)
--- NOTE | 2020-06-08 02:00 | NUR ---
pt.assessed.v/s assessed note temp status remains elevated.i have applied cold compressed.pt.un-covered.ett/ngt intact ng- tube feed infusing.i have attended to the oral care/suctioning.rt/lt.inj iv access intact;patent iv fluids infusing.coronado cath intact;patent urine content present. per flacc pain mgx pt.absent facial grimaces/body posturing.pt.assessed for cleanliness.pt.repositioned.general status stable.respiratory status stable;unlabored.call light/telephone placed w/in access of the pt.
--- NOTE | 2020-06-08 04:00 | NUR ---
pt.assessed.v/s assessed temp status decreased.ett/ngt intact;ng-tube feed infusng.rt/lt inj intact;patent iv fluids infusing. coronado cath intact;patent urine content present.pt.assessed for cleanliness.pt.repositioned.per flacc pain mgx pt.absent facial grimaces/body posturing. general status stable.respiratory status stable;unlabored.02-sat%=98%.call light/telephone placed w/in reach of the pt. i have attended to the oral care/suctioning.
--- NOTE | 2020-06-08 06:09 | NUR ---
pt.assessed.v/s assessed temp elevated.i have applied cold compress.i have administered tylenol;650mg via ngt.i have attended to the oral care/suctioning.pt.assessed for cleanliness.pt.repositioned.ngt feed infusing.iv fluids infusing@tko.general status stable. respiratory status stable;unlabored;02-sat%=98%.call light/telephone placed w/in access of the pt.
[2020-06-08] MEDS: ACETAMINOPHEN 325 MG TABLET PO PRN ×2 (06:15→15:34)
[2020-06-08 07:02] LABS: BASOPHILS % (AUTO) 0.2 % (0.0-2.0); LYMPHOCYTES # (AUTO) 0.4 K/uL (1.0-5.5); MEAN CORPUSCULAR HEMOGLOBIN 30 pg (27-31); MEAN CORPUSCULAR HGB CONC 33 % (32-36); MEAN CORPUSCULAR VOLUME 93 fL (79.0-98.0); MONOCYTES # (AUTO) 0.9 K/uL (0.0-1.0); MONOCYTES % (AUTO) 4.9 % (1.7-9.3); NEUTROPHILS # (AUTO) 16.7 K/uL (1.8-7.7); NEUTROPHILS % (AUTO) 92.9 % (40.0-70.0); PLATELET COUNT (AUTO) 89 K/uL (130-430); RED BLOOD CELL COUNT(AUTO) 2.34 MIL/uL (4.2-6.2); RED CELL DISTRIBUTION WIDTH 15.4 % (9.0-15.0)
[2020-06-08 07:09] LABS: FOLATE (FOLIC ACID) 8.8 ng/mL (>3.0)
--- NOTE | 2020-06-08 07:27 | NUR ---
OPENING NOTE Patient resting in the bed. No acute distress. HOB elevated. ETT intact to vent: AC=12, FIO2=30%, GT=139, PEEP=5. NGT intact to right nares, on feeding of Nepro at 25ml/hr. Right IJ and left IJ catheter intact, no redness, no swelling. Covered with clean and dry transparent dressing. F/C intact, drain gravity. Safety measure maintained. Call light within reached. Will continue to monitor.
--- NOTE | 2020-06-08 08:01 | NUR ---
SEEN AND EXAMINED BY RAMO SR.
[2020-06-08] MEDS: PANTOPRAZOLE SODIUM 40 MG/VIAL (PROTONIX) IVP SCH ×2 (08:46→22:00)
[2020-06-08] MEDS: LORazepam 2 MG/ML VIAL IVP PRN (08:46)
[2020-06-08] MEDS: levETIRAcetam 500 MG TABLET PO SCH ×2 (08:46→22:00)
[2020-06-08] MEDS: BALSAM PERU/CASTOR OIL 60 GM OINT...G. TP SCH (08:47)
--- NOTE | 2020-06-08 08:50 | NUR ---
SEEN AND EXAMINED BY CAMDEN MATTHEWS. DR. QUEEN CHANGED THE VENT SETTING TO PRESSURE CONTROL 16.
[2020-06-08 09:04] LABS: HEMATOCRIT 21.8 % (36-48); HEMOGLOBIN 7.1 g/dL (12.0-16.0)
--- NOTE | 2020-06-08 09:04 | NUR ---
SEEN AND EXAMINED BY JENNIFER RANGEL. PER DR. WIN THE PATIENT NOT READY FOR SURGERY YET DUE TO WBC STILL ELEVATED.
--- NOTE | 2020-06-08 09:32 | NUR ---
CRITICAL LAB: HGB=7.1, HCT=21.8 Called and received call back from Myles Vee. Reported Hgb=7.1, Hct=21.8 with order of 1 unit of PRBC and stool OB. Order read back and okay to Dr. Sarah.
[2020-06-08 09:34] LABS: CALCIUM 7.4 mg/dL (8.4-11.0); CREATININE 1.85 mg/dL (0.55-1.30); POTASSIUM 2.8 mmol/L (3.5-5.1); TOTAL BILIRUBIN 0.4 mg/dL (0.0-1.0)
[2020-06-08 09:35] LABS: ALBUMIN 1.8 g/dL (3.4-4.8); PHOSPHORUS 2.5 mg/dL (2.7-4.5)
--- NOTE | 2020-06-08 09:43 | NUR ---
CRITICAL LAB: POTASSIUM=2.8 Addendum: 06/08/20 at 1008 by Pavan Marques RN CALLED SHAYAN CHAO AND WAITED TO CALL BACK.
--- NOTE | 2020-06-08 09:45 | NUR ---
SEEN AND EXAMINED BY TORI BECKHAM.
--- NOTE | 2020-06-08 10:05 | NUR ---
HIGH ALERT NOTE: Called Myles Vee back at [phone] identified within the medical roster to verify physician authenticity.
[2020-06-08] MEDS ORDERED: POTASSIUM CHLORIDE 40 MEQ in D5W 250 ML IV ONE (10:15)
[2020-06-08 10:26] LABS: ERYTHROCYTE SEDIMENTATION RATE 16 MM/HR (0-20)
--- NOTE | 2020-06-08 10:30 | NUR ---
SEEN AND EXAMINED BY DENZEL VIRGEN.
[2020-06-08 11:19] LABS: C-REACTIVE PROTEIN QUANT 0.8 mg/dL (0-0.5)
[2020-06-08] MEDS: PIPERACILLIN/TAZO 2.25G/DEX-IS 50 ML IV SCH ×2 (11:30→18:09)
[2020-06-08] MEDS ORDERED: NOREPINEPHRINE BITARTRATE 8 MG in D5W 242 ML IV PRN (12:15)
[2020-06-08] MEDS: MORPHINE 2 MG/ML INJ. SYRINGE IVP PRN ×2 (12:25→19:03)
[2020-06-08] MEDS ORDERED: NOREPINEPHRINE 4 MG/4 ML VIAL IV ONE (12:30)
--- NOTE | 2020-06-08 12:30 | NUR ---
BP DROPPED Charge nurse called Liliana Neves regarding the BP=73/40. Dr. Walton with order of NS 1L bolus. Levophed per protocol. Order read back and ok to Dr. Walton.
[2020-06-08] MEDS: fentaNYL CITRATE/PF 100 MCG/2 ML AMP IVP PRN ×2 (13:04→20:02)
[2020-06-08] MEDS: FLUCONAZOLE 100 mg/ NS 50 ML IV SCH (14:05)
--- NOTE | 2020-06-08 15:10 | NUR ---
SEEN AND EXAMINED BY LAVINIA SCHULTE.
--- NOTE | 2020-06-08 15:27 | NUR ---
BT INITIATION: Blood transfusion started. No acute distress. Will stayed with patient for 15min. Continue to monitor.
--- NOTE | 2020-06-08 15:43 | NUR ---
15 MIN AFTER STARTING BLOOD TRANSFUSION Patient resting in the be. HOB elevated, No acute distress. Continue on blood transfusion. No rash noted. Safety measure maintained. Call light within reached. Continue to monitor.
[2020-06-08] MEDS ORDERED: K PHOS 15 MM in NS 250 ML IV ONE (17:30)
--- NOTE | 2020-06-08 18:00 | NUR ---
BLOOD TRANSFUSION COMPLETED Patient resting in the bed. No acute distress. No reaction noted related to blood transfusion. No skin rash noted. Safety measure maintained. Call light within reached. Continue to monitor.
[2020-06-08] MEDS ORDERED: NACL 0.9% 1,000 ML IV ONE (18:30)
--- NOTE | 2020-06-08 18:50 | NUR ---
CLOSING NOTE Patient resting in the bed. No acute distress. HOB elevated. ETT intact to vent: AC=12, FIO2=30%, pressure control=16, PEEP=5. NGT intact to right nares, on feeding of Nepro at 25ml/hr. Right IJ and left IJ catheter intact, no redness, no swelling. Covered with clean and dry transparent dressing. F/C intact, drain gravity. All needs met. Safety measure maintained. Call light within reached. Will endorse to night nurse.
--- NOTE | 2020-06-08 19:30 | NUR ---
Opening note: Report received from day RN. Assuming care now.
[2020-06-09] VITALS (35 sets, daily range): BP systolic 84–126
[2020-06-09] MEDS: PIPERACILLIN/TAZO 2.25G/DEX-IS 50 ML IV SCH ×4 (00:57→18:11)
[2020-06-09] MEDS: MORPHINE 2 MG/ML INJ. SYRINGE IVP PRN ×2 (02:49→10:35)
[2020-06-09 06:09] LABS: ALBUMIN 1.8 g/dL (3.4-4.8); C-REACTIVE PROTEIN QUANT 0.6 mg/dL (0-0.5); CREATININE 2.27 mg/dL (0.55-1.30); PHOSPHORUS 4.4 mg/dL (2.7-4.5); POTASSIUM 3.4 mmol/L (3.5-5.1)
[2020-06-09 06:11] LABS: BASOPHILS # (AUTO) 0.1 K/uL (0.0-0.2); BASOPHILS % (AUTO) 0.4 % (0.0-2.0); HEMATOCRIT 25.1 % (36-48); HEMOGLOBIN 8.3 g/dL (12.0-16.0); LYMPHOCYTES # (AUTO) 0.9 K/uL (1.0-5.5); LYMPHOCYTES % (AUTO) 5.7 % (20.5-51.5); MEAN CORPUSCULAR HEMOGLOBIN 31 pg (27-31); MEAN CORPUSCULAR HGB CONC 33 % (32-36); MEAN CORPUSCULAR VOLUME 93 fL (79.0-98.0); MONOCYTES # (AUTO) 0.8 K/uL (0.0-1.0); MONOCYTES % (AUTO) 5.1 % (1.7-9.3); NEUTROPHILS # (AUTO) 14.5 K/uL (1.8-7.7); NEUTROPHILS % (AUTO) 88.8 % (40.0-70.0); PLATELET COUNT (AUTO) 80 K/uL (130-430); RED CELL DISTRIBUTION WIDTH 14.8 % (9.0-15.0); WHITE BLOOD COUNT (AUTO) 16.4 K/uL (4.8-10.8)
[2020-06-09 07:17] LABS: ERYTHROCYTE SEDIMENTATION RATE 7 MM/HR (0-20)
--- NOTE | 2020-06-09 07:25 | NUR ---
OPENING NOTE Patient resting in the bed. No acute distress. HOB elevated. ETT intact to vent: AC=12, FIO2=30%, pressure support=16, PEEP=5. NGT intact to right nares, on feeding of Nepro at 25ml/hr. Right IJ and left IJ catheter intact, no redness, no swelling. Covered with clean and dry transparent dressing. F/C intact, drain gravity. Safety measure maintained. Call light within reached. Bed locked in low position, side rails up. Will continue to monitor.
--- NOTE | 2020-06-09 07:35 | NUR ---
RT NOTES Vent to cpap [address] lynn daily trial. no adverse reactions noted. will monitor pt. @ 3646 pt cont. to tolerate cpap well
--- NOTE | 2020-06-09 07:45 | NUR ---
SEEN AND EXAMINED BY CAMDEN MATTHEWS.
--- NOTE | 2020-06-09 08:09 | NUR ---
SEEN AND EXAMINED BY RAMO SR Reported to Dr. Spears, patient's K=3.4 today, yesterday K=2.8. Potassium was replaced. Per Dr. Spears, he will order potassium supplement. Dr. Spears asked when to do the arm surgery. Answered per surgeon will not do it now due to patient's condition not stable yet, WBC elevated plus on and off fever.
--- NOTE | 2020-06-09 08:31 | NUR ---
ABG DONE BY RT AT BEDSIDE.
[2020-06-09] MEDS: levETIRAcetam 500 MG TABLET PO SCH ×2 (08:32→21:20)
[2020-06-09] MEDS: PANTOPRAZOLE SODIUM 40 MG/VIAL (PROTONIX) IVP SCH ×2 (08:32→21:21)
[2020-06-09] MEDS: KCL 20 mEq in 100 mL (PREMIX) 100 ML IV SCH ×2 (08:33→10:49)
[2020-06-09] MEDS: BALSAM PERU/CASTOR OIL 60 GM OINT...G. TP SCH (08:34)
--- NOTE | 2020-06-09 09:00 | NUR ---
RT NOTES NIF [id number] unable to obtain vital capacity, vent do not have the capability
--- NOTE | 2020-06-09 10:10 | NUR ---
SEEN AND EXAMINED BY DENZEL VIRGEN.
--- NOTE | 2020-06-09 10:36 | NUR ---
MORPHINE GIVEN Patient has pain 7/10, Morphine 2mg IVP given as ordered. BZ=749/60. No acute distress. ETT intact to vent. HOB elevated. Continue on NG tube feeding. F/C intact, drain gravity. Safety measure maintained. Call light within reached. Continue to monitor.
[2020-06-09] MEDS: fentaNYL CITRATE/PF 100 MCG/2 ML AMP IVP PRN ×2 (12:05→21:21)
--- NOTE | 2020-06-09 13:05 | NUR ---
NOTE Patient resting in the bed. No acute distress. ETT intact to vent. NGT intact, continue on tube feeding. HOB elevated all the time. F/C intact, drain gravity. Safety measure maintained. Call light within reached. Bed locked in low position, side rails up. Continue to monitor.
--- NOTE | 2020-06-09 14:25 | NUR ---
WOUND CARE DONE. PATIENT TOLERATED PROCEDURE WELL.
[2020-06-09] MEDS: FLUCONAZOLE 100 mg/ NS 50 ML IV SCH (14:27)
[2020-06-09] MEDS ORDERED: DIAZEPAM 5 MG TABLET (VALIUM) PO PRN (14:45)
[2020-06-09] MEDS ORDERED: NALOXONE HCL 0.4 MG/ML AMP (NARCAN) IVP PRN ×2 (14:45)
--- NOTE | 2020-06-09 15:45 | NUR ---
CALLED DR. PEDRO DELUCA REGARDING POSITIVE RESULT ON STOOL OB, LEFT MESSAGE AND WAITED TO CALL BACK.
--- NOTE | 2020-06-09 17:15 | NUR ---
RECEIVED CALL BACK FROM DAKOTA BECKHAM. REPORTED TO DR. VASQUEZ FOR STOOL OB POSITIVE RESULT. DR. VASQUEZ STATED "I AM NOT SURPRISE AND I AM AWARE IT. NO NEW ORDER."
--- NOTE | 2020-06-09 17:58 | NUR ---
SEEN AND EXAMINED BY SHAYAN CHAO WITH ORDER RECEIVED.
[2020-06-09] MEDS ORDERED: KCL 20 mEq in 100 mL (PREMIX) 100 ML IV ONE (18:00)
--- NOTE | 2020-06-09 18:58 | NUR ---
CLOSING NOTE Patient resting in the bed. No acute distress. HOB elevated. ETT intact to ventilator. NGT intact to right nares, on feeding of Nepro at 25ml/hr. Right IJ and left IJ catheter intact, no redness, no swelling. Covered with clean and dry transparent dressing. F/C intact, drain gravity. All needs met. Safety measure maintained. Call light within reached. Will endorse to night nurse.
[2020-06-10] VITALS (33 sets, daily range): BP systolic 78–123
[2020-06-10] MEDS: PIPERACILLIN/TAZO 2.25G/DEX-IS 50 ML IV SCH ×5 (00:42→23:50)
[2020-06-10 05:43] LABS: BASOPHILS % (AUTO) 0.2 % (0.0-2.0); HEMATOCRIT 25.2 % (36-48); HEMOGLOBIN 8.3 g/dL (12.0-16.0); LYMPHOCYTES # (AUTO) 0.6 K/uL (1.0-5.5); LYMPHOCYTES % (AUTO) 3.1 % (20.5-51.5); MEAN CORPUSCULAR HEMOGLOBIN 31 pg (27-31); MEAN CORPUSCULAR HGB CONC 33 % (32-36); MEAN CORPUSCULAR VOLUME 94 fL (79.0-98.0); MONOCYTES # (AUTO) 0.5 K/uL (0.0-1.0); NEUTROPHILS # (AUTO) 16.9 K/uL (1.8-7.7); NEUTROPHILS % (AUTO) 93.7 % (40.0-70.0); PLATELET COUNT (AUTO) 83 K/uL (130-430); RED BLOOD CELL COUNT(AUTO) 2.67 MIL/uL (4.2-6.2); RED CELL DISTRIBUTION WIDTH 14.9 % (9.0-15.0)
[2020-06-10 06:53] LABS: ALBUMIN 1.9 g/dL (3.4-4.8); CALCIUM 7.7 mg/dL (8.4-11.0); CREATININE 2.25 mg/dL (0.55-1.30); PHOSPHORUS 4.9 mg/dL (2.7-4.5); POTASSIUM 3.6 mmol/L (3.5-5.1); TOTAL BILIRUBIN 1.2 mg/dL (0.0-1.0)
[2020-06-10 07:30] LABS: ERYTHROCYTE SEDIMENTATION RATE 9 MM/HR (0-20)
--- NOTE | 2020-06-10 07:40 | NUR ---
Opening Notes Patient received in bed, able to open eyes and follow some commands. Patient connected to threat monitoring analyst with NSR. Patient intubated with settings Pressure Control 16, rate 12, FiO2 30%, PEEP 5, breathing evenly and unlabored. Patient with left central line triple lumen, right dialysis catheter with a pigtail. Patient with NGT receiving tubefeeding. Patient has a coronado catheter draining urine. Safety precautions enforced.
--- NOTE | 2020-06-10 07:40 | NUR ---
RT NOTES Vent to cpap 5 ps 12 cpap trial order. no adverse reactions noted. will monitor pt.
[2020-06-10 08:46] LABS: C-REACTIVE PROTEIN QUANT 0.7 mg/dL (0-0.5)
[2020-06-10] MEDS: BALSAM PERU/CASTOR OIL 60 GM OINT...G. TP SCH (09:00)
[2020-06-10] MEDS: PANTOPRAZOLE SODIUM 40 MG/VIAL (PROTONIX) IVP SCH ×2 (09:38→21:24)
[2020-06-10] MEDS: levETIRAcetam 500 MG TABLET PO SCH ×2 (09:38→21:24)
[2020-06-10] MEDS: D5W 1,000 ML IV SCH ×3 (09:38→23:50)
--- NOTE | 2020-06-10 10:00 | NUR ---
RT NOTES Pt cont. to tolerate cpap well. NIF 18, 25, 30 cmH2O RSBI 48 Unable to obtain VC
--- NOTE | 2020-06-10 11:40 | NUR ---
RT NOTES Vent back to previous settings, pt is starting to show fatigue. R.R in high 30s. RN notified
[2020-06-10] MEDS ORDERED: VANCOMYCIN HCL 750 MG/NS 250 ML IV ONE (12:00)
--- NOTE | 2020-06-10 12:00 | NUR ---
RN Rounds Patient with eyes closed in bed at this time. No signs of distress noted. Patient orally suctioned with small amount of secretions out. Oral care provided. Safety precautions enforced.
[2020-06-10] MEDS: FLUCONAZOLE 100 mg/ NS 50 ML IV SCH (14:23)
--- NOTE | 2020-06-10 15:02 | NUR ---
Nutrition F/U RD reviewed pt's current EMR record including diet Hx, physician notes, nursing notes, pertinent labs/meds/procedures, care trends, and care activity. Admission Dx: Renal Failure, Sepsis PMH: Pt presents w/: Sepsis, Septic shock, Leukocytosis, Acute Respiratory Failure, Vent dependent, Hypernatremia, Hyperkalemia, SARAHY, CKD, hyperglycemia, Lactic acidosis, Transaminitis, Rhabdomyolysis, Elevated troponin level, Possible UTI, Meth abuse, LLE PVD, Encephalopathy (metabolic/septic) per MD notes. SARS-CoV-2 Ag Rapid 05/30 Negative COVID-19 PCR 05/31 Negative Current Diet Order/Nutrition Support: Nepro at 25 ml/hr (goal rate), Magdy BID, Banatrol BID, Free Water Flush: 400 ml Q6H via NGT x5 days Subjective Info: Pt remains in ICU, intubated on vent, non-verbal, receiving Nepro at 25 ml/hr via NGT and propofol infusing at 2.449 ml/hr (65 kcal/day) per EMR. RD unable to reach RN d/t RN not available per nsg station. Per EMR, pt w/ 0 ml residuals. Banatrol BID has been added to TF order to help w/ loose/diarrhea-like stools. MD note stated pt no medically stable for anesthesia and pt is still a/w for possible amputation of gangrenous L arm. Current EN regimen remains adequate and appropriate to meet pt's needs. Pertinent Medications: keppra, heparin, propofol. abx. IV D5W @ 75 ml/hr (306 kcal) Pertinent Labs: Na 157 H, K 3.6 WNL, BG 120 H, BUN 99 H, CRE 2.25 H, AST 49 H (improved), ALT 72 WNL (improved), WBC 18.0 H, ALB 1.9 L Skin Integrity Comment: Carlos scale: 11. Per Certified Addiction Counselor note 06/01: multiple sDTIs noted; please refer to note for details Current % PO NPO, on EN Estimated Energy Expenditure (kcals/day) 1274 kcal/day (PSU for critical illness on vent) -- minute volume: 10/temperature: 37.6 degrees C Estimated Protein Required (g/day) 65-82gm/day (1.2-1.5 gm/kg IBW for wound healing and renal dz to start HD) Estimated Fluid Required (l/day) per MD (Renal disease) Problem/Etiology/Signs/Symptoms Predicted suboptimal nutrient intake r/t diet order 2/2 medical condition AEB NPO status. *improved w/ EN support Altered nutrition-related labs r/t renal dysfunction AEB elevated BUN and SCre lab values and Hx of Renal Disease. *ongoing Altered nutrition-related labs r/t medication interaction AEB elevated BG lab values and steroid. *ongoing Increased nutrient needs r/t metabolic demands AEB estimated calories and protein for wound healing. *ongoing Complicate GI function r/t compromised GI function AEB loose stools. *ongoing? unable to verify Expected Outcomes/Goals Monitor tolerance of nutrition support and intake w/ goal of pt meeting more than 75% of estimated nutritional needs, labs trending WNL, normal GI function, skin integrity/wt maintenance. Dietitian Recommendations *Recommend continue Nepro at 25ml/hr (goal rate), Magdy BID, Banatrol BID Free Water Flush: 400 ml Q6H via NGT Provides: 1240 kcal/day, 54 gm protein/day, and 2036 ml free water/day Meets: 97% of estimated caloric needs and 83% of lower end of estimated protein needs Follow Up High Risk: F/U in 2-3 days
--- NOTE | 2020-06-10 15:12 | NUR ---
Dietitian Recommendations *Recommend continue Nepro at 25ml/hr (goal rate), Magdy BID, Banatrol BID Free Water Flush: 400 ml Q6H via NGT Provides: 1240 kcal/day, 54 gm protein/day, and 2036 ml free water/day Meets: 97% of estimated caloric needs and 83% of lower end of estimated protein needs Please see Nutrition F/U for details. EP,RD
--- NOTE | 2020-06-10 16:00 | NUR ---
Wound Care Wound care performed and dressing changed. Patient turned and repositioned. Patient tolerated well. Patient in no signs of distress.
--- NOTE | 2020-06-10 19:32 | NUR ---
Closing Notes Patient endorsed to program project analyst RN using SBAR format. Patient in no signs of distress.
--- NOTE | 2020-06-10 19:35 | NUR ---
OPENING NOTE Received SBAR report from off coming RN for continuity of care. Pt laying in bed with eyes open to verbal stimuli. No s/s of acute distress noted. Pt on ventilator, oxygen saturations above 90%. NGT in place with TF infusing. Coronel catheter in place and draining to gravity. Will continue to monitor and assess.
--- NOTE | 2020-06-10 21:00 | NUR ---
Pt laying in bed, eyes open spontaneously and in response to verbal stimuli. Pt intubated and on ventilator setting pressure control 16, rate of 12, FiO2 30%, and PEEP 5. Provided PO care and suctioning, pt tolerated well. NGT in place, placement verified with auscultation and air bolus. Nepro infusing @ 25 ml/hr. L) IJ CVC in place with D5W infusing @ 75 ml/hr. Coronel catheter in place and draining to gravity. Pt had 1 medium dark brown loose BM, provided Coronel and lidia care, pt tolerated well. Provided partial linen change and turned and repositioned. Heels elevated with pillows. Bed in locked and in lowest position. Will continue to monitor and assess.
[2020-06-11] VITALS (34 sets, daily range): BP systolic 64–112
[2020-06-11] MEDS: LORazepam 2 MG/ML VIAL IVP PRN ×3 (00:13→20:44)
--- NOTE | 2020-06-11 01:10 | NUR ---
PAGED DR. JOHN Edgar FOR ORDERS DIALED: [phone] SPOKE TO: HANSEL
--- NOTE | 2020-06-11 01:15 | NUR ---
LOW BP Pt's SBP sustaining in 60s-70s. Adjusted BP cuff, rechecked BP, positioned pt for adequate blood return. Dr. Tyrel coates. Will continue to monitor pt and await for orders.
[2020-06-11] MEDS: NOREPINEPHRINE BITARTRATE 4 MG in NS 246 ML IV PRN ×2 (01:45→11:20)
[2020-06-11] MEDS ORDERED: NOREPINEPHRINE 4 MG/4 ML VIAL IV ONE (01:51)
--- NOTE | 2020-06-11 02:24 | NUR ---
PAGED DR. JOHN Edgar FOR ORDERS SECOND ATTEMPT DIALED: [phone] SPOKE TO: SHASTA
--- NOTE | 2020-06-11 03:02 | NUR ---
PAGED DR. QUEEN FOR ORDERS DIALED: [phone] SPOKE TO: AUTOMATED EXCHANGE
[2020-06-11] MEDS: PIPERACILLIN/TAZO 2.25G/DEX-IS 50 ML IV SCH ×4 (05:14→23:22)
[2020-06-11 05:36] LABS: BASOPHILS # (AUTO) 0.1 K/uL (0.0-0.2); BASOPHILS % (AUTO) 0.4 % (0.0-2.0); EOSINOPHILS % (AUTO) 0.1 % (0.0-4.0); HEMATOCRIT 23.6 % (36-48); HEMOGLOBIN 7.6 g/dL (12.0-16.0); LYMPHOCYTES # (AUTO) 0.5 K/uL (1.0-5.5); LYMPHOCYTES % (AUTO) 2.4 % (20.5-51.5); MEAN CORPUSCULAR HEMOGLOBIN 31 pg (27-31); MEAN CORPUSCULAR HGB CONC 32 % (32-36); MEAN CORPUSCULAR VOLUME 95 fL (79.0-98.0); MONOCYTES # (AUTO) 0.5 K/uL (0.0-1.0); MONOCYTES % (AUTO) 2.5 % (1.7-9.3); NEUTROPHILS # (AUTO) 18.8 K/uL (1.8-7.7); NEUTROPHILS % (AUTO) 94.6 % (40.0-70.0); PLATELET COUNT (AUTO) 99 K/uL (130-430); RED BLOOD CELL COUNT(AUTO) 2.48 MIL/uL (4.2-6.2); WHITE BLOOD COUNT (AUTO) 19.9 K/uL (4.8-10.8)
--- NOTE | 2020-06-11 05:46 | NUR ---
PAGED DR. QUEEN FOR ORDERS SECOND ATTEMPT DIALED: [phone] SPOKE TO: DR. QUEEN
--- NOTE | 2020-06-11 05:52 | NUR ---
DR. BRET TORRES MADE AWARE OF PT DROP IN BP TO SYSTOLIC 70s-80s. ORDERS RECEIVED TO START LEVOPHED DRIP. WILL CARRY OUT ORDERED.
[2020-06-11 06:10] LABS: ALBUMIN 1.7 g/dL (3.4-4.8); CREATININE 1.99 mg/dL (0.55-1.30); PHOSPHORUS 3.9 mg/dL (2.7-4.5); TOTAL BILIRUBIN 0.7 mg/dL (0.0-1.0)
[2020-06-11 06:46] LABS: POTASSIUM 2.6 mmol/L (3.5-5.1)
[2020-06-11] MEDS ORDERED: POTASSIUM CHLORIDE 40 MEQ in NS 250 ML IV ONE ×2 (07:00→15:00)
--- NOTE | 2020-06-11 07:00 | NUR ---
CRITICAL LAB Dr. Spears paged for K 2.6. Verbal telephone orders received for 40 mEq K Brian now and 1500, provided read back for verification. Will carry out orders.
--- NOTE | 2020-06-11 07:26 | NUR ---
CLOSING NOTE Endorsed SBAR report to oncoming RN for continuity of care. Pt resting in bed with eyes open, no s/s of acute distress noted. Levophed gtt infusing @ 0.13 mcg/kg/min. Coronel catheter draining to gravity. NGT patent with Nepro infusing @ 25 ml/hr.
--- NOTE | 2020-06-11 07:30 | NUR ---
Opening Notes Patient received awake in bed, able to follow some commands. Patient connected to clinical research monitor with NSR. Patient intubated with settings pressure control 12, rate 12, FiO2 30%, PEEP 5, no signs of distress noted. Patient with right IJ dialysis catheter with pigtail. Patient also has left IJ central line triple lumen receiving D5W at 75 ml/hr. Patient has a coronado catheter draining urine. Safety precautions enforced.
[2020-06-11 07:39] LABS: ERYTHROCYTE SEDIMENTATION RATE 7 MM/HR (0-20)
[2020-06-11] MEDS: levETIRAcetam 500 MG TABLET PO SCH ×2 (08:10→20:10)
[2020-06-11] MEDS: PANTOPRAZOLE SODIUM 40 MG/VIAL (PROTONIX) IVP SCH ×2 (08:10→20:10)
[2020-06-11] MEDS: BALSAM PERU/CASTOR OIL 60 GM OINT...G. TP SCH (08:11)
--- NOTE | 2020-06-11 08:45 | NUR ---
Rounds Dr. Walton at bedside for examination. MD changed vent settings to CPAP and ordered to keep settings for as long as patient is tolerating.
--- NOTE | 2020-06-11 09:41 | NUR ---
MD Rounds Dr. Berrios at bedside for examination. No new orders received.
[2020-06-11 09:42] LABS: C-REACTIVE PROTEIN QUANT 0.3 mg/dL (0-0.5); VANCOMYCIN,RANDOM 8.2 ug/mL
--- NOTE | 2020-06-11 10:00 | NUR ---
RN Rounds Patient resting in bed, no signs of distress noted. Patient turned and repositioned. Cleaned patient and replaced soiled sheets. Safety precautions enforced.
--- NOTE | 2020-06-11 10:50 | NUR ---
0705 PLACED ON CPAP 5, PS 12. 0720 PLACED BACK TO PC16 DUE TO PT TACHYPNEIC, RR 40'S. 0925 PT TACHYPNEIC, RR 33-36. PT ON CPAP 5, PS 12 CHANGED BY MD QUEEN. PLACED BACK TO PC 16 DUE TO PT UNABLE TO TOLERATE CPAP 5, PS 12 THIS MORNING.
[2020-06-11] MEDS ORDERED: VANCOMYCIN HCL 1,000 MG in NS 250 ML IV ONE (11:00)
--- NOTE | 2020-06-11 12:00 | NUR ---
RN Rounds Patient resting at this time, able to open eyes. Patient in no signs of distress. Reinforced education regarding plan of care and safety.
[2020-06-11 12:48] LABS: HEPARIN INDUCED PLT AB 0.054 OD (0.000-0.400)
[2020-06-11] MEDS: FLUCONAZOLE 100 mg/ NS 50 ML IV SCH (14:06)
--- NOTE | 2020-06-11 14:50 | NUR ---
Wound Care Wound care performed per MD order. Soiled linens changed. Patient tolerated well. No signs of distress noted.
--- NOTE | 2020-06-11 16:00 | NUR ---
RN Rounds Patient sleeping at this time, no signs of distress noted. Patient orally suctioned with small amount of secretions out. Patient turned and repositioned. Safety precautions enforced.
--- NOTE | 2020-06-11 18:00 | NUR ---
RN Rounds Patient resting at this time. Patient in no signs of distress noted. Safety precautions enforced.
--- NOTE | 2020-06-11 19:23 | NUR ---
Closing Notes Patient endorsed o night shit RN using SBAR format. No signs of distress noted.
--- NOTE | 2020-06-11 19:30 | NUR ---
OPENING NOTE SBAR report received from off coming RN for continuity of care. Pt laying in bed with eyes open. No s/s of acute distress noted. Pt on ventilator, no signs of respiratory distress noted. NGT in place with tube feeding infusing. Levophed gtt infusing @ 0.13 mcg/kg/min, D5W infusing @ 75 ml/hr through L) IJ CVC. Coronel catheter in place and draining to gravity, yellow urine output noted. FMS in place and draining to gravity. Pt turned and repositioned, heels elevated with pillows. Bed locked and in lowest position for safety. Call light within reach. Will continue to monitor and assess.
[2020-06-11] MEDS: D5W 1,000 ML IV SCH (20:15)
--- NOTE | 2020-06-11 21:00 | NUR ---
Pt laying in bed with eyes open, pt attempting to speak. Pt intubated on ventilator, pressure control 16, rate 12, FiO2 30%, PEEP 5. Oxygen saturation above 90%, no s/s of respiratory distress noted. PO care and suctioning provided, pt tolerated well. NGT in place, verified placement with air bolus auscultation, minimal residuals obtained. Nepro infusing @ 25 ml/hr. Coronel catheter in place and draining to gravity, yellow urine output noted. FMS in place and draining to gravity, brown liquid output noted. Pt turned and repositioned. Heels elevated with pillows. Will continue to monitor and assess.
[2020-06-12] VITALS (34 sets, daily range): BP systolic 95–134
[2020-06-12] MEDS: NOREPINEPHRINE BITARTRATE 4 MG in NS 246 ML IV PRN ×2 (01:28→14:06)
[2020-06-12] MEDS: LORazepam 2 MG/ML VIAL IVP PRN ×3 (03:00→23:42)
--- NOTE | 2020-06-12 04:00 | NUR ---
CHG/FULL BATH/WOUND CARE Full bed bath and CHG given, pt tolerated well. Full linen change done. Wound care to sacral/buttock dressing provided per EMAR d/t soiling.
[2020-06-12] MEDS: PIPERACILLIN/TAZO 2.25G/DEX-IS 50 ML IV SCH ×4 (05:11→23:37)
[2020-06-12 05:28] LABS: BASOPHILS % (AUTO) 0.1 % (0.0-2.0); EOSINOPHILS # (AUTO) 0.1 K/uL (0.0-0.4); EOSINOPHILS % (AUTO) 0.4 % (0.0-4.0); HEMOGLOBIN 7.1 g/dL (12.0-16.0); LYMPHOCYTES # (AUTO) 0.5 K/uL (1.0-5.5); LYMPHOCYTES % (AUTO) 3.2 % (20.5-51.5); MEAN CORPUSCULAR HEMOGLOBIN 31 pg (27-31); MEAN CORPUSCULAR HGB CONC 33 % (32-36); MEAN CORPUSCULAR VOLUME 95 fL (79.0-98.0); MONOCYTES # (AUTO) 0.4 K/uL (0.0-1.0); NEUTROPHILS # (AUTO) 13.4 K/uL (1.8-7.7); NEUTROPHILS % (AUTO) 93.3 % (40.0-70.0); PLATELET COUNT (AUTO) 69 K/uL (130-430); RED BLOOD CELL COUNT(AUTO) 2.28 MIL/uL (4.2-6.2); WHITE BLOOD COUNT (AUTO) 14.4 K/uL (4.8-10.8)
[2020-06-12 05:36] LABS: HEMATOCRIT 21.7 % (36-48)
--- NOTE | 2020-06-12 05:40 | NUR ---
CRITICAL LAB Laboratory called with critical lab value Hgb 7.1, Hct 21.7, Plt 69. Medical record number and patient name verified. Read back of values done. Available order for transfusion of 1 unit PRBCs for Hgb < 7.[address] Reid. Will carry out orders.
[2020-06-12 06:10] LABS: ALBUMIN 1.6 g/dL (3.4-4.8); CREATININE 1.45 mg/dL (0.55-1.30); PHOSPHORUS 2.8 mg/dL (2.7-4.5); TOTAL BILIRUBIN 0.8 mg/dL (0.0-1.0)
[2020-06-12 06:44] LABS: POTASSIUM 2.6 mmol/L (3.5-5.1)
--- NOTE | 2020-06-12 06:55 | NUR ---
CRITICAL LAB: Laboratory called with critical lab value K 2.6. Medical record number and patient name verified. Read back of values done. Dr. Spears notified of value. Awaiting orders at this time.
--- NOTE | 2020-06-12 07:10 | NUR ---
RT NOTES Vent to cpap 5 ps 12 per daily trial order. no adverse reaction noted. will monitor pt.
--- NOTE | 2020-06-12 07:30 | NUR ---
OPENING NOTE Patient report received via SBAR from endorsing RN
--- NOTE | 2020-06-12 07:35 | NUR ---
CALL Dr. Spears informed about patient's lab, new orders entered
--- NOTE | 2020-06-12 07:37 | NUR ---
HIGH ALERT NOTE: Called Dr. Spears back and identified within the medical roster to verify physician authenticity.
[2020-06-12 07:44] LABS: ERYTHROCYTE SEDIMENTATION RATE 14 MM/HR (0-20)
[2020-06-12] MEDS: levETIRAcetam 500 MG TABLET PO SCH ×2 (07:54→20:48)
[2020-06-12] MEDS: PANTOPRAZOLE SODIUM 40 MG/VIAL (PROTONIX) IVP SCH ×2 (07:54→20:48)
[2020-06-12] MEDS: BALSAM PERU/CASTOR OIL 60 GM OINT...G. TP SCH (08:15)
[2020-06-12] MEDS ORDERED: KCL 40 mEq in 100 mL (PREMIX) 100 ML IV ONE ×2 (09:00→15:00)
--- NOTE | 2020-06-12 09:00 | NUR ---
RT NOTES Found pt tachypneic and tachycardic, switched to previous settings. RN made aware.
[2020-06-12] MEDS: MORPHINE 2 MG/ML INJ. SYRINGE IVP PRN ×2 (09:05→20:49)
[2020-06-12 10:46] LABS: C-REACTIVE PROTEIN QUANT 1.3 mg/dL (0-0.5); VANCOMYCIN,RANDOM 12.4 ug/mL
--- NOTE | 2020-06-12 11:35 | NUR ---
BT INITIATION: Consent signed per family agreeing to administration of blood. Blood has been type and crossmatched. Blood sent from blood bank. Information on unit of blood checked against patient wristband at bedside by two nurses. All information matches. Patient or responsible alliance party informed of potential complications associated with blood transfusion. Informed of possible transfusion reaction symptoms. Aware of need to notify nurse at once of itching, shortness of breath, flushing, feeling of impending doom, or other symptoms not previously present. Vital signs taken within 5 minutes prior to initiation of transfusion. RN will remain with patient for first 15 minutes of transfusion at which time vital signs will be re-assessed.
[2020-06-12] MEDS: FLUCONAZOLE 100 mg/ NS 50 ML IV SCH (12:12)
[2020-06-12] MEDS: VANCOMYCIN HCL 1,000 MG in NS 250 ML IV SCH (12:27)
--- NOTE | 2020-06-12 12:35 | NUR ---
ROUND Dr. Spears in to see patient, physician entered orders
[2020-06-12] MEDS ORDERED: LACTOBACILLUS RHAMNOSUS GG 1 CAP CAPSULE NG ONE (13:00)
[2020-06-12] MEDS: D5W 1,000 ML IV SCH (13:44)
--- NOTE | 2020-06-12 16:06 | NUR ---
WOUND EVALUATION: Patient received in a Fide Bed with an Isoflex MANNY mattress with low air loss therapy. Patient is unable to turn independently. Carlos Score is an 11. Past Medical History: Polysubstance abuse, Metabolic Encephalopathy, Rhabdomyolysis and Methamphetamine overdose. Per medical record, the patient came to ER for altered mental status and was last seen normal about a week ago. Her neighbor called EMS to check on the her and when EMS arrived they found the patient lying on her left side, with altered mental state, hypotensive, and a systolic blood pressure of 70. On arrival to ER, the patient had blood sugar in the 50's, elevated CPKs, probable Rhabdomyolysis, ischemia, gangrene of the left arm and hand. Presently, the patient is on vasopressors (quad strength Levophed IV at 0.86 mcg kg/min and Pascual-Synephrine at 0.5 mcg), Heparin drip for both ischemia/gangrene of the left hand and elevated troponin levels, and propofol drip. The patient was admitted to ICU with left upper extremity necrosis, multiple DTI's, and multi-organ failure. Left upper extremity Arterial Doppler results: "Impression: Nonvisualization of the left ulnar artery due to marked soft tissue swelling." Clinical impression/diagnoses per Dr. Sarah: 1. Sepsis. 2. Septic shock. 3. Leukocytosis. 4. Acute respiratory failure. 5. Ventilator dependent. 6. Hypernatremia. 7. Hypokalemia. 8. Acute kidney injury. 9. Chronic kidney disease. 10. Hyperglycemia. 11. Lactic acidosis. 12. Hypocalcemia. 13. Transaminitis. 14. Rhabdomyolysis. 15. Elevated troponin level. 16. Hypoalbuminemia. 17. Ruled out urinary tract infection. 18. Methamphetamine abuse. 19. Left upper extremity peripheral vascular disease. 20. Encephalopathy (metabolic/septic). Anemia Protein-Calorie Malnutrition (Severe) Thrombocytopenia Dr. Pena on surgical consult stated that the patient is too unstable for any surgical intervention at this time, but is planning on a left upper extremity amputation when the patient is more stable and the electrolyte imbalance is improved. Microbiology: Blood culture results x2 in progress. Urine culture results negative. Endotracheal sputum culture results negative. Intrinsic factors that delay wound healing: Methamphetamine Overdose, Acute Respiratory Failure, Sepsis, left lower extremity PVD, Encephalopathy (Metabolic/Septic), Acute kidney injury/Chronic Kidney Disease, Hyperglycemia. Extrinsic factors that delay wound healing: Immobility. Wound Assessment: 1. Left Sacral area: sDTI present on admission, now progressed to an unstageable pressure ulcer. Wound bed has 95% black thin leathery eschar, 5% yellow slough. No odor, scant yellow drainage. Periwound intact. Site measures 5.0 cm x 3.4 cm. Area of blanchable light red erythema present inferior to wound for 5 cm. 2. Right Sacral/Upper Buttock areas: sDTI. Site has 70% light red discoloration, 30% black thin leathery eschar, 30% black discoloration, 40% dark red discoloration. Red discoloration crosses the sulcus. No odor, no drainage. Periwound intact. Site measures 6.0 cm x 5.5 cm. 3. Gluteal Cleft/Sulcus: Wound bed has 10% yellow tissue 90% red tissue, with 90% dark red non-blanchable discoloration present inferiorly. No odor, no drainage. Periwound intact. Open area measures 4.2 cm x 0.5 cm. Recommend: Cleanse wounds with normal saline. Apply moisture barrier cream to periwounds. Apply Venelex ointment to wound beds. Cover sites with foam dressings. Change dressings and assess sites daily daily, and as needed for dressing soiling or dislodgment. 4. Left Lateral Upper Back: sDTI present on admission, now an unstageable pressure ulcer. Wound bed has 80% thin leathery black slough, 10% red tissue, 10% yellow slough. No odor, no drainage. Periwound intact. Wound measures 6.5 cm x 6.0 cm. Recommend: Cleanse wound with normal saline. Apply moisture barrier cream to periwound. Apply Venelex ointment to wound bed. Cover with foam dressing. Perform wound care daily, and as needed for dressing soiling or dislodgment. 5. Left Lateral Upper Back, Inferior to Site 4: sDTI present on admission, now site has multiple nonintact skin areas. Wound beds have 100% red tissue. No odor, no drainage. Periwound intact. Site measures 2.0 cm x 4.7 cm. Two light red nonblanchable areas present inferior to wound site. Recommend: Apply moisture barrier cream to all sites. Cover sites with foam dressing. Change dressings and assess sites daily, and as needed for dressing soiling or dislodgment. 6. Left Axillary area: sDTI, present on admission. Site has 30% dark red tissue, 70% tracy-colored tissue. No odor, no drainage. Periwound intact. Site measures 6.6 cm x 2.0 cm. Recommend: Cleanse wound with normal saline. Apply moisture barrier cream to periwound. Apply Venelex ointment to wound bed. Cover with foam dressing. Perform wound care daily, and as needed for dressing soiling or dislodgment. 7. Right Elbow: Unstageable pressure ulcer, present on admission. Wound bed has 90% yellow tissue, 10% pink tissue. No odor, scant yellow drainage. Periwound intact. Wound measures 1.7 cm x 2.9 cm. Recommend continue: Cleanse wound with normal saline. Apply moisture barrier cream to periwound. Apply Venelex ointment to wound bed. Cover with foam dressing. Perform wound care daily, and as needed for dressing soiling or dislodgment. Offload site at all times with pillows. 8. Left Lateral Forearm/Wrist: Ischemia, possibly secondary to lying on arm for an extended period of time, present on admission. Site has black gangrene and red discoloration, cold to the touch. All fingernails and fingertips are black, and black veins are visible on the dorsal hand. Extremity also has purple discoloration. Erythema extends to 3.7 cm superior to the elbow. Area of ischemia has grown, assessment for what was previously four smaller sites is now charted as assessment for one site. Recommend: No dressing needed. Wrap extremity with Inter-dry AG cloth, then absorbable pad. Continue to monitor site every shift. Elevate extremity with multiple pillows. 11. Right Lateral Heel: sDTI, present on admission. Site has 40% yellow discoloration, 90% red discoloration, 10% dark discoloration. No odor, no drainage. Periwound intact. Site measures 4.3 cm x 4.5 cm. Recommend: Cover site with foam dressing. Perform site care daily, and as needed for dressing soiling or dislodgement. Elevate, offload and float bilateral heels with one pillow lengthwise under each extremity at all times. Also recommend continue: Reposition patient side to side only every 2 hours with one pillow Underneath trunk and one pillow underneath pelvis. Off-load pressure areas with pillows for pressure re-distribution. Elevate, offload and float bilateral heels with one pillow lengthwise under each extremity at all times. Perform skin care and monitor skin integrity Q shift. Use moisture barrier cream on buttocks and other moisture susceptible areas QID and as needed for soiling. Maintain patient on a low air-loss mattress.
--- NOTE | 2020-06-12 16:30 | NUR ---
Nursing Note Patient's wound care performed, linens changed, patient repositioned in bed, patient tolerated well
--- NOTE | 2020-06-12 18:00 | NUR ---
MD ROUND Dr. Sarah in to see patient, physician entered orders
--- NOTE | 2020-06-12 19:25 | NUR ---
CLOSING NOTE Patient report given to nightshift RN via SBAR
--- NOTE | 2020-06-12 19:30 | NUR ---
Opening Note Received report from AM nurse using SBAR approach.
[2020-06-12] MEDS: LACTOBACILLUS RHAMNOSUS GG 1 CAP CAPSULE NG SCH (20:48)
[2020-06-13] VITALS (35 sets, daily range): BP systolic 88–146
[2020-06-13] MEDS: D5W 1,000 ML IV SCH ×3 (02:25→20:43)
[2020-06-13] MEDS: NOREPINEPHRINE BITARTRATE 4 MG in NS 246 ML IV PRN ×2 (04:53→22:24)
--- NOTE | 2020-06-13 05:30 | NUR ---
Central Line dressing change Patient's central line dressing is coming off. Changed the dressing using sterile technique. Patient tolerated well, no signs or symptoms of distress. Will continue to monitor.
[2020-06-13] MEDS: PIPERACILLIN/TAZO 2.25G/DEX-IS 50 ML IV SCH ×2 (05:43→12:15)
[2020-06-13 06:22] LABS: BASOPHILS % (AUTO) 0.2 % (0.0-2.0); EOSINOPHILS % (AUTO) 0.4 % (0.0-4.0); HEMATOCRIT 25.6 % (36-48); HEMOGLOBIN 8.4 g/dL (12.0-16.0); LYMPHOCYTES # (AUTO) 0.4 K/uL (1.0-5.5); MEAN CORPUSCULAR HEMOGLOBIN 31 pg (27-31); MEAN CORPUSCULAR HGB CONC 33 % (32-36); MEAN CORPUSCULAR VOLUME 95 fL (79.0-98.0); MONOCYTES # (AUTO) 0.4 K/uL (0.0-1.0); MONOCYTES % (AUTO) 3.1 % (1.7-9.3); NEUTROPHILS # (AUTO) 12.6 K/uL (1.8-7.7); NEUTROPHILS % (AUTO) 93.3 % (40.0-70.0); PLATELET COUNT (AUTO) 53 K/uL (130-430); RED BLOOD CELL COUNT(AUTO) 2.71 MIL/uL (4.2-6.2); WHITE BLOOD COUNT (AUTO) 13.5 K/uL (4.8-10.8)
[2020-06-13 07:03] LABS: CALCIUM 7.3 mg/dL (8.4-11.0); CREATININE 1.19 mg/dL (0.55-1.30); PHOSPHORUS 2.9 mg/dL (2.7-4.5); POTASSIUM 3.5 mmol/L (3.5-5.1)
[2020-06-13 07:08] LABS: ERYTHROCYTE SEDIMENTATION RATE 16 MM/HR (0-20)
--- NOTE | 2020-06-13 07:19 | NUR ---
Closing Note Endorsed report to AM nurse using SBAR approach.
--- NOTE | 2020-06-13 07:27 | NUR ---
Opening Note Received plan of care via sbar from endorsing RN.
[2020-06-13 08:12] LABS: C-REACTIVE PROTEIN QUANT 2.1 mg/dL (0-0.5)
[2020-06-13] MEDS: levETIRAcetam 500 MG TABLET PO SCH (08:38)
[2020-06-13] MEDS: BALSAM PERU/CASTOR OIL 60 GM OINT...G. TP SCH (08:38)
[2020-06-13] MEDS: PANTOPRAZOLE SODIUM 40 MG/VIAL (PROTONIX) IVP SCH (08:38)
[2020-06-13] MEDS: LACTOBACILLUS RHAMNOSUS GG 1 CAP CAPSULE NG SCH (08:38)
[2020-06-13] MEDS: MORPHINE 2 MG/ML INJ. SYRINGE IVP PRN (08:44)
--- NOTE | 2020-06-13 09:47 | NUR ---
Received call from Dr. Spears to discuss CMP. Provided updates on electrolytes. Received order to increase IV fluid d5 @ 75/hr to 100cc/hr.
--- NOTE | 2020-06-13 09:59 | NUR ---
Dr. Walton at bedside. Provided labs and ABGs. Received order for Bicarb BID PO 650 mg.
--- NOTE | 2020-06-13 12:29 | NUR ---
DC Planning: Per KASSY Felipe Dir: no transfer to LTAC, the pt is to remain in [facility] d/t [facility] contract. -- Dr Sarah made aware.
[2020-06-13] MEDS: VANCOMYCIN HCL 1,000 MG in NS 250 ML IV SCH (12:53)
[2020-06-13] MEDS: FLUCONAZOLE 100 mg/ NS 50 ML IV SCH (13:03)
--- NOTE | 2020-06-13 15:24 | NUR ---
Nutrition F/U RD reviewed pt's current EMR record including diet Hx, physician notes, nursing notes, pertinent labs/meds/procedures, care trends, and care activity. Admission Dx: Renal Failure, Sepsis PMH: Pt presents w/: Sepsis, Septic shock, Leukocytosis, Acute Respiratory Failure, Vent dependent, Hypernatremia, Hyperkalemia, SARAHY, CKD, hyperglycemia, Lactic acidosis, Transaminitis, Rhabdomyolysis, Elevated troponin level, Possible UTI, Meth abuse, LLE PVD, Encephalopathy (metabolic/septic), severe protein malnutrition per MD notes. SARS-CoV-2 Ag Rapid 05/30 Negative COVID-19 PCR 05/31 Negative Current Diet Order/Nutrition Support: Nepro at 25 ml/hr (goal rate), Magdy BID, Banatrol BID, Free Water Flush: 400 ml Q6H via NGT x6 days Subjective Info: Pt remains in ICU, intubated on vent, non-verbal, receiving Nepro at 25 ml/hr via NGT. RN reported pt still has loose stools but has been tolerating TF with minimal residuals. Stool output: 100 ml 06/13 per EMR. He also reported that that gis engineer (Dr. Walton) would like pt to switch to Vital AF TF formula for possible increased tolerance and to lessen diarrhea -- RD to provide recommendations and implement per physician. Pertinent Medications: keppra, heparin, vancomycin/NaCl IV, culturelle, piperacillin/tazobactam IV Pertinent Labs: Na 151 H, BG 123 H, BUN 54 H, CRE 1.19 WNL (improved), AST 37 WNL (improved) WBC 13.5 H (improving), ALB 1.6 L Skin Integrity Comment: Carlos scale: 12. Per Division Plant Engineer note 06/12: multiple sDTIs noted; please refer to note for details Current % PO NPO, on EN NEW Estimated Energy Expenditure (kcals/day) 1040 kcal/day (PSU for critical illness on vent) -- minute volume: 5.7/temperature: 37 degrees C Estimated Protein Required (g/day) 65-82gm/day (1.2-1.5 gm/kg IBW for wound healing and renal dz to start HD) Estimated Fluid Required (l/day) Per physician d/t renal Dz Problem/Etiology/Signs/Symptoms Predicted suboptimal nutrient intake r/t diet order 2/2 medical condition AEB NPO status. *improved w/ EN support Altered nutrition-related labs r/t renal dysfunction AEB elevated BUN and SCre lab values and Hx of Renal Disease. *ongoing Altered nutrition-related labs r/t medication interaction AEB elevated BG lab values and steroid. *ongoing Increased nutrient needs r/t metabolic demands AEB estimated calories and protein for wound healing. *ongoing Complicated GI function r/t compromised GI function AEB loose stools. *ongoing Expected Outcomes/Goals Monitor tolerance of nutrition support and intake w/ goal of pt meeting more than 75% of estimated nutritional needs, labs trending WNL, normal GI function, skin integrity/wt maintenance. Dietitian Recommendations *Recommend continue Vital AF 1.2 at 40 ml/hr, Banatrol BID via NGT Provides: 1152 kcal/day, 72 gm protein/day, and 779 ml free water/day Meets: 111% of estimated caloric needs and 88% of upper end of estimated protein needs * Free Water Flush per physician d/t renal Dz Follow Up High Risk: F/U in 2-3 days Addendum: 06/13/20 at [address] CORRECTION: Dietitian Recommendations *Recommend continue Vital AF 1.2 at 40 ml/hr, Banatrol BID via NGT Provides: 1152 kcal/day, 72 gm protein/day, and 779 ml free water/day Meets: 111% of estimated caloric needs and 88% of upper end of estimated protein needs * Free Water Flush per physician d/t renal Dz
--- NOTE | 2020-06-13 15:42 | NUR ---
Dietitian Recommendations *Recommend Vital AF 1.2 at 40 ml/hr, Banatrol BID via NGT Provides: 1152 kcal/day, 72 gm protein/day, and 779 ml free water/day Meets: 111% of estimated caloric needs and 88% of upper end of estimated protein needs * Free Water Flush per physician d/t renal Dz LP, RD Please refer to Nutrition F/U for details.
--- NOTE | 2020-06-13 19:30 | NUR ---
Closing Note Provided plan of care via sbar to receiving RN.
--- NOTE | 2020-06-13 20:00 | NUR ---
ASSESSMENT Generalized edema present. Pitting greater in upper extremities.
[2020-06-14] VITALS (37 sets, daily range): BP systolic 71–160
[2020-06-14] MEDS: PANTOPRAZOLE SODIUM 40 MG/VIAL (PROTONIX) IVP SCH ×3 (01:22→20:56)
[2020-06-14] MEDS: LACTOBACILLUS RHAMNOSUS GG 1 CAP CAPSULE NG SCH ×3 (01:23→20:56)
[2020-06-14] MEDS: SODIUM BICARBONATE 650 MG TABLET PO SCH ×3 (01:23→20:56)
[2020-06-14] MEDS: PIPERACILLIN/TAZO 2.25G/DEX-IS 50 ML IV SCH ×2 (01:23→05:54)
[2020-06-14] MEDS: levETIRAcetam 500 MG TABLET PO SCH ×3 (01:24→20:56)
[2020-06-14] MEDS: HYDROcodone/ACETAMIN 10-325 MG TAB PO PRN ×2 (01:24→23:12)
[2020-06-14] MEDS: D5W 1,000 ML IV SCH ×2 (06:38→17:50)
[2020-06-14 06:53] LABS: BASOPHILS # (AUTO) 0.1 K/uL (0.0-0.2); BASOPHILS % (AUTO) 0.7 % (0.0-2.0); EOSINOPHILS % (AUTO) 0.2 % (0.0-4.0); HEMATOCRIT 24.4 % (36-48); LYMPHOCYTES # (AUTO) 0.3 K/uL (1.0-5.5); LYMPHOCYTES % (AUTO) 2.6 % (20.5-51.5); MEAN CORPUSCULAR HEMOGLOBIN 31 pg (27-31); MEAN CORPUSCULAR HGB CONC 33 % (32-36); MEAN CORPUSCULAR VOLUME 95 fL (79.0-98.0); MONOCYTES # (AUTO) 0.6 K/uL (0.0-1.0); MONOCYTES % (AUTO) 4.7 % (1.7-9.3); NEUTROPHILS % (AUTO) 91.8 % (40.0-70.0); RED BLOOD CELL COUNT(AUTO) 2.57 MIL/uL (4.2-6.2); RED CELL DISTRIBUTION WIDTH 16.1 % (9.0-15.0); WHITE BLOOD COUNT (AUTO) 11.9 K/uL (4.8-10.8)
[2020-06-14 06:59] LABS: CREATININE 0.99 mg/dL (0.55-1.30); PHOSPHORUS 2.7 mg/dL (2.7-4.5); POTASSIUM 3.4 mmol/L (3.5-5.1)
[2020-06-14 07:03] LABS: PLATELET COUNT (AUTO) 48 K/uL (130-430)
--- NOTE | 2020-06-14 07:20 | NUR ---
Opening Note Received plan of care via sbar from endorsing RN.
--- NOTE | 2020-06-14 07:27 | NUR ---
RT NOTES Per daily cpap trial, vent to cpap 5 ps 12. no adverse reactions noted. will monitor pt.
[2020-06-14 07:47] LABS: CALCIUM 6.4 mg/dL (8.4-11.0)
[2020-06-14 07:50] LABS: ERYTHROCYTE SEDIMENTATION RATE 17 MM/HR (0-20)
--- NOTE | 2020-06-14 08:24 | NUR ---
Spoke to Dr. Ferrara and informed MD of low platelet 48. MD to continue to monitor platelets while on zosyn. MD to review current medications and decide on possibly switching zosyn.
--- NOTE | 2020-06-14 08:27 | NUR ---
Spoke to Dr. Spears reported Calcium and potassium. Received order to infuse 1 gram of calcium gluconate via IV once and 40 MEQ KCL IV once. Called back MD to verify order.
[2020-06-14] MEDS ORDERED: KCL 40 mEq in 100 mL (PREMIX) 100 ML IV ONE (08:30)
[2020-06-14] MEDS ORDERED: CALCIUM GLUCONATE 1 GM in NS 100 ML IV ONE (08:30)
--- NOTE | 2020-06-14 09:00 | NUR ---
Dr. Walton at bedside. Provided patient update. No new orders.
[2020-06-14] MEDS: BALSAM PERU/CASTOR OIL 60 GM OINT...G. TP SCH (09:09)
[2020-06-14] MEDS: KCL 20 mEq in 100 mL (PREMIX) 100 ML IV SCH ×2 (10:10→11:47)
--- NOTE | 2020-06-14 10:10 | NUR ---
Dr. Sarah at bedside. Provided patient update. No new orders.
[2020-06-14] MEDS: FLUCONAZOLE 100 mg/ NS 50 ML IV SCH (12:34)
[2020-06-14 12:59] LABS: C-REACTIVE PROTEIN QUANT 1.5 mg/dL (0-0.5)
--- NOTE | 2020-06-14 15:25 | NUR ---
RT NOTES abnormal breathing pattern noted, Vent back to previous settings
[2020-06-14] MEDS: MEROPENEM 500 MG in NS 50 ML IV SCH ×2 (15:40→23:10)
[2020-06-14] MEDS: MORPHINE 2 MG/ML INJ. SYRINGE IVP PRN (15:41)
--- NOTE | 2020-06-14 18:00 | NUR ---
Dr. Pena at bedside. Provide patient update. Contacted Connie baig for consent for surgical procedure and blood transfusion (PRCB and platelet). to place orders. Keep patient NPO for procedure in AM.
--- NOTE | 2020-06-14 18:48 | NUR ---
Received call from Dr. Walton. Received orders to cancel Heparin Drip order and to include DIC for lab.
--- NOTE | 2020-06-14 19:25 | NUR ---
PM SHIFT ASSESSMENT Pt is A/O X2. Pt is on the vent, RR even and unlabored. ST on the monitor. Coronel catheter in place, draining to gravity. IVF infusing, no signs of infiltration noted. NG noted and clamped, pt is NPO at this time. Safety precautions in place, call light within reach. Will continue to monitor.
[2020-06-14 19:46] LABS: PROTHROMBIN TIME 10.4 SECS (9.5-12.5)
--- NOTE | 2020-06-14 21:25 | NUR ---
BT INITIATION: Consent signed agreeing to administration of blood. Blood has been type and crossmatched. Blood sent from blood bank. Information on unit of blood checked against patient wristband at bedside by two nurses. All information matches. Patient or responsible libertarian informed of potential complications associated with blood transfusion. Informed of possible transfusion reaction symptoms. Aware of need to notify nurse at once of itching, shortness of breath, flushing, feeling of impending doom, or other symptoms not previously present. Vital signs taken within 5 minutes prior to initiation of transfusion. RN will remain with patient for first 15 minutes of transfusion at which time vital signs will be re-assessed.
--- NOTE | 2020-06-14 23:20 | NUR ---
BLOOD TRANSFUSION END Blood transfusion finished at this time. Pt tolerated transfusion well. VSS.
[2020-06-15] VITALS (29 sets, daily range): BP systolic 72–111
--- NOTE | 2020-06-15 00:55 | NUR ---
PLATELET INITIATION: Consent signed agreeing to administration of platelets. Blood has been type and crossmatched. Blood sent from blood bank. Information on unit of platelets checked against patient wristband at bedside by two nurses. All information matches. Patient or responsible libertarian informed of potential complications associated with platelets transfusion. Informed of possible transfusion reaction symptoms. Aware of need to notify nurse at once of itching, shortness of breath, flushing, feeling of impending doom, or other symptoms not previously present. Vital signs taken within 5 minutes prior to initiation of transfusion. RN will remain with patient for first 15 minutes of transfusion at which time vital signs will be re-assessed.
--- NOTE | 2020-06-15 02:30 | NUR ---
PLATELET TRANSFUSION END Platelet transfusion finished at this time. Pt tolerated transfusion well. VSS.
[2020-06-15] MEDS: D5W 1,000 ML IV SCH ×2 (05:14→14:24)
[2020-06-15] MEDS: MEROPENEM 500 MG in NS 50 ML IV SCH ×3 (05:14→21:56)
[2020-06-15 06:03] LABS: EOSINOPHILS # (AUTO) 0.1 K/uL (0.0-0.4)
[2020-06-15 06:11] LABS: BASOPHILS % (AUTO) 0.2 % (0.0-2.0); EOSINOPHILS % (AUTO) 0.7 % (0.0-4.0); HEMATOCRIT 25.5 % (36-48); HEMOGLOBIN 8.6 g/dL (12.0-16.0); LYMPHOCYTES # (AUTO) 0.6 K/uL (1.0-5.5); LYMPHOCYTES % (AUTO) 7.1 % (20.5-51.5); MEAN CORPUSCULAR HEMOGLOBIN 32 pg (27-31); MEAN CORPUSCULAR HGB CONC 34 % (32-36); MEAN CORPUSCULAR VOLUME 94 fL (79.0-98.0); MONOCYTES # (AUTO) 0.4 K/uL (0.0-1.0); MONOCYTES % (AUTO) 5.4 % (1.7-9.3); NEUTROPHILS # (AUTO) 6.9 K/uL (1.8-7.7); NEUTROPHILS % (AUTO) 86.6 % (40.0-70.0); RED BLOOD CELL COUNT(AUTO) 2.72 MIL/uL (4.2-6.2); RED CELL DISTRIBUTION WIDTH 15.2 % (9.0-15.0)
[2020-06-15 06:14] LABS: PLATELET COUNT (AUTO) 53 K/uL (130-430)
[2020-06-15 06:37] LABS: ALBUMIN 1.3 g/dL (3.4-4.8); CREATININE 0.84 mg/dL (0.55-1.30); POTASSIUM 3.2 mmol/L (3.5-5.1); TOTAL BILIRUBIN 0.7 mg/dL (0.0-1.0)
[2020-06-15 06:58] LABS: ERYTHROCYTE SEDIMENTATION RATE 12 MM/HR (0-20)
--- NOTE | 2020-06-15 07:00 | NUR ---
Opening Note Received report from MARIELLE SALGUERO.
[2020-06-15 07:10] LABS: CALCIUM 6.9 mg/dL (8.4-11.0)
--- NOTE | 2020-06-15 07:15 | NUR ---
ENDORSEMENT Pt care endorsed to dayshift RN using nursing SBAR.
--- NOTE | 2020-06-15 08:00 | NUR ---
MD Rounds Dr. Florez (GI) at bedside- updated on POC.
[2020-06-15] MEDS: levETIRAcetam 500 MG TABLET PO SCH ×2 (09:00→20:29)
[2020-06-15] MEDS: SODIUM BICARBONATE 650 MG TABLET PO SCH ×2 (09:00→20:29)
[2020-06-15] MEDS: LACTOBACILLUS RHAMNOSUS GG 1 CAP CAPSULE NG SCH ×2 (09:00→20:29)
--- NOTE | 2020-06-15 09:20 | NUR ---
Dialysis Catheter Removal Right dialysis catheter removed as ordered by Dr. Spears. Patient tolerated well. No signs of distress noted.
[2020-06-15] MEDS: PANTOPRAZOLE SODIUM 40 MG/VIAL (PROTONIX) IVP SCH ×2 (09:23→20:29)
--- NOTE | 2020-06-15 09:30 | NUR ---
CHG CHG bath performed and linens changed. Patient tolerated well. No signs of distress noted.
--- NOTE | 2020-06-15 09:35 | NUR ---
Nursing Rounds Removed Maximo cath per MD order. Pt tolerated well. CHG done.
[2020-06-15] MEDS: BALSAM PERU/CASTOR OIL 60 GM OINT...G. TP SCH (10:00)
--- NOTE | 2020-06-15 11:00 | NUR ---
Transport Pt transported to OR by 2 RNs, RT, OR transporter and medical student on ticketing clerk. Pt in NAD.
[2020-06-15] MEDS ORDERED: NS IRRIG SOLN 1000 ML IR ONE (11:10)
[2020-06-15] MEDS ORDERED: LIDOCAINE/EPI 1% 1:100000 20 ML VIAL INJ ONE (11:10)
[2020-06-15] MEDS ORDERED: NOREPINEPHRINE 4 MG/4 ML VIAL IV ONE (11:10)
[2020-06-15] MEDS ORDERED: SEVOFLURANE 15 MIN GAS INH ONE (11:10)
[2020-06-15] MEDS ORDERED: NS 250 ML IV.SOLN IV ONE (11:10)
[2020-06-15] MEDS ORDERED: BUPIVACAINE /PF 0.5% 30 ML VIAL INJ ONE (11:10)
[2020-06-15] MEDS ORDERED: LR 1,000 ML IV.SOLN IV ONE (11:10)
[2020-06-15 11:12] LABS: C-REACTIVE PROTEIN QUANT 1.7 mg/dL (0-0.5)
[2020-06-15] MEDS ORDERED: ONDANSETRON HCL 4 MG/2 ML VIAL IVP PRN (12:45)
[2020-06-15] MEDS ORDERED: MORPHINE 4 MG/ML INJ. SYRINGE IVP PRN (12:45)
--- NOTE | 2020-06-15 13:15 | NUR ---
Post-surgery Patient transported back to ICU 4 and connected to case monitor. VS stable at this time with BP 109/66, O2 saturation 100%. Dr. Isidro, anesthesiologist, at bedside with sewer system supervisor. Patient in no signs of distress at this time. BP set q5mins intervals. Safety precautions enforced.
--- NOTE | 2020-06-15 13:20 | NUR ---
Recovery Patient in no signs of distress at this time. Site free from active bleeding. Head of the bed up. VSS.
--- NOTE | 2020-06-15 13:25 | NUR ---
Recovery Patient in no signs of distress at this time. Site free from active bleeding. Head of the bed up. VSS.
--- NOTE | 2020-06-15 13:30 | NUR ---
Recovery Patient in no signs of distress at this time. Site free from active bleeding. Head of the bed up. VSS.
--- NOTE | 2020-06-15 13:35 | NUR ---
Recovery Patient in no signs of distress at this time. Site free from active bleeding. Head of the bed up. VSS.
--- NOTE | 2020-06-15 13:40 | NUR ---
Recovery Patient in no signs of distress at this time. Site free from active bleeding. Head of the bed up. VSS.
--- NOTE | 2020-06-15 13:45 | NUR ---
Recovery Patient in no signs of distress at this time. Site free from active bleeding. Head of the bed up. VSS.
[2020-06-15] MEDS: FLUCONAZOLE 100 mg/ NS 50 ML IV SCH (14:11)
--- NOTE | 2020-06-15 15:00 | NUR ---
Wound Care Wound care performed as ordered by MD. Patient in no signs of distress. Safety precautions enforced.
[2020-06-15] MEDS: MORPHINE 2 MG/ML INJ. SYRINGE IVP PRN (15:09)
--- NOTE | 2020-06-15 16:00 | NUR ---
RN Rounds Patient awake, alert, and in no signs of distress at this time. Patient able to communicate needs by nodding and shaking head. Patient orally suctioned with small amount of secretions. Safety precautions enforced.
--- NOTE | 2020-06-15 16:30 | NUR ---
RN Rounds Changed coronado drainage system, picture of right medial elbow taken. Pt in NAD.
[2020-06-15] MEDS ORDERED: POTASSIUM CHLORIDE 20 MEQ in NS 250 ML IV ONE (18:00)
[2020-06-15] MEDS ORDERED: MAGNESIUM SULFATE 4 GM in D5W 250 ML IV ONE (18:00)
[2020-06-15] MEDS: MORPHINE 4 MG/ML INJ. SYRINGE IVP PRN (18:38)
--- NOTE | 2020-06-15 19:00 | NUR ---
Closing Notes Endorsed patient to shift supervisor RN using SBAR. Patient in no signs of distress. Safety precautions enforced.
--- NOTE | 2020-06-15 19:16 | NUR ---
Opening Note Received plan of care via sbar from endorsing RN.
--- NOTE | 2020-06-15 20:30 | NUR ---
RN Rounds: Patient repositioned for comfort, eyes closed in no apparent acute distress. Left UE wrapped with ELOISE bandage, intact with no drainage noted. Surgeon will change first dressing. All safety checks in place, bed in lowest locked position for safety call light in reach.
[2020-06-15] MEDS: HYDROmorphone 2 MG/ML VIAL IVP PRN (21:49)
--- NOTE | 2020-06-15 21:50 | NUR ---
WITNESS Witnessed Hallie, RN titrate Levophed Drip to 0.07mcg/kg/min.
--- NOTE | 2020-06-15 21:53 | NUR ---
PAIN: PRN Dilaudid given for FLACC 10, patient has facial grimacing and clenching of right hand. Will re-assess in 30 minutes.
[2020-06-15] MEDS: NOREPINEPHRINE BITARTRATE 4 MG in NS 246 ML IV PRN (22:00)
--- NOTE | 2020-06-15 22:20 | NUR ---
Pain: Medication found to be only slightly effective, patient continues to have intermittent facial grimacing. Pt positioned for comfort, distraction with music provided. Patient's eyes closed at this time, will monitor.
--- NOTE | 2020-06-15 23:57 | NUR ---
RN Rounds Patient awake, alert, and in no signs of distress at this time. Patient able to communicate needs by nodding and shaking head. When asked if she had pain she nodded with a "no" Patient orally suctioned with small amount of secretions. Safety precautions enforced.
[2020-06-16] VITALS (30 sets, daily range): BP systolic 85–122
[2020-06-16] MEDS: MORPHINE 4 MG/ML INJ. SYRINGE IVP PRN ×4 (00:57→20:32)
[2020-06-16] MEDS: D5W 1,000 ML IV SCH ×3 (01:07→20:27)
--- NOTE | 2020-06-16 01:27 | NUR ---
Pain: PRN Morphine 4mg given IVP for pain, no adverse effect noted.
--- NOTE | 2020-06-16 01:29 | NUR ---
Dressings clean dry and intact Addendum: 06/16/20 at 0129 by Alesha Del Toro RN Amended: Links added.
--- NOTE | 2020-06-16 02:08 | NUR ---
RN ROUNDS: PATIENT POSITIONED FOR COMFORT, EYES CLOSED IN NO APPARENT DISTRESS AND OR DISCOMFORT. LUE RESTING ON PILLOW, ELOISE WRAP INTACT WITH NO SIGNS OF BLEEDING / DRAINAGE. WHITAKER CATHETER / FLEXI-SEAL PATENT AND DRAINING BELOW LEVEL OF INSERTION. ALL SAFETY PRECAUTIONS IN PLACE. BED IN LOWEST LOCKED POSITION.
--- NOTE | 2020-06-16 03:15 | NUR ---
WITNESS Witnessed Hallie, RN titrate Levophed Drip to 0.04mcg/kg/min.
--- NOTE | 2020-06-16 04:00 | NUR ---
RN ROUNDS: PATIENT POSITIONED FOR COMFORT, EYES CLOSED IN NO APPARENT DISTRESS AND OR DISCOMFORT. ALL SAFETY PRECAUTIONS IN PLACE, BED IN LOWEST LOCKED POSITION.
[2020-06-16] MEDS: MEROPENEM 500 MG in NS 50 ML IV SCH (05:24)
--- NOTE | 2020-06-16 06:16 | NUR ---
RN ROUNDS: PATIENT POSITIONED FOR COMFORT, EYES CLOSED IN NO APPARENT DISTRESS AND OR DISCOMFORT.
[2020-06-16 07:08] LABS: CREATININE 0.61 mg/dL (0.55-1.30); PHOSPHORUS 2.5 mg/dL (2.7-4.5); POTASSIUM 3.2 mmol/L (3.5-5.1)
--- NOTE | 2020-06-16 07:30 | NUR ---
Opening Notes Patient received awake, alert, and able to follow some commands. Patient connected patient monitor with NSR. Patient intubated with settings PC 16, Rate 12, FiO2 30%, PEEP 5 breathing evenly and unlabored. Patient with central line receiving D5W at 100 ml/hr, levophed at 0.04 mcg/kg/min. Patient has NGT clamped at this time. Awaiting for surgeon to call back for diet order post surgery. Patient has a coronado catheter draining urine. Safety precautions enforced.
[2020-06-16 07:31] LABS: CALCIUM 7.3 mg/dL (8.4-11.0)
[2020-06-16 07:43] LABS: BASOPHILS # (AUTO) 0.1 K/uL (0.0-0.2); BASOPHILS % (AUTO) 1.2 % (0.0-2.0); EOSINOPHILS # (AUTO) 0.2 K/uL (0.0-0.4); EOSINOPHILS % (AUTO) 2.1 % (0.0-4.0); HEMATOCRIT 24.8 % (36-48); HEMOGLOBIN 8.6 g/dL (12.0-16.0); LYMPHOCYTES # (AUTO) 0.6 K/uL (1.0-5.5); LYMPHOCYTES % (AUTO) 8.3 % (20.5-51.5); MEAN CORPUSCULAR HEMOGLOBIN 32 pg (27-31); MEAN CORPUSCULAR HGB CONC 35 % (32-36); MEAN CORPUSCULAR VOLUME 93 fL (79.0-98.0); MONOCYTES # (AUTO) 0.5 K/uL (0.0-1.0); MONOCYTES % (AUTO) 5.9 % (1.7-9.3); NEUTROPHILS # (AUTO) 6.3 K/uL (1.8-7.7); NEUTROPHILS % (AUTO) 82.5 % (40.0-70.0); PLATELET COUNT (AUTO) 101 K/uL (130-430); RED BLOOD CELL COUNT(AUTO) 2.66 MIL/uL (4.2-6.2); RED CELL DISTRIBUTION WIDTH 15.1 % (9.0-15.0); WHITE BLOOD COUNT (AUTO) 7.7 K/uL (4.8-10.8)
[2020-06-16] MEDS: LACTOBACILLUS RHAMNOSUS GG 1 CAP CAPSULE NG SCH ×2 (08:37→20:28)
[2020-06-16] MEDS: levETIRAcetam 500 MG TABLET PO SCH ×2 (08:37→20:28)
[2020-06-16] MEDS: PANTOPRAZOLE SODIUM 40 MG/VIAL (PROTONIX) IVP SCH ×2 (08:37→20:27)
[2020-06-16] MEDS: SODIUM BICARBONATE 650 MG TABLET PO SCH ×2 (08:37→20:28)
[2020-06-16] MEDS ORDERED: POTASSIUM CHLORIDE 40 MEQ in NS 250 ML IV PRN (09:00)
[2020-06-16 09:30] LABS: C-REACTIVE PROTEIN QUANT 2.2 mg/dL (0-0.5)
--- NOTE | 2020-06-16 10:00 | NUR ---
RN Rounds Patient resting at this time, no signs of distress noted. Patient turned and repositioned. Safety precautions enforced.
[2020-06-16] MEDS: BALSAM PERU/CASTOR OIL 60 GM OINT...G. TP SCH (10:19)
[2020-06-16] MEDS: KCL 20 mEq in 100 mL (PREMIX) 100 ML IV SCH ×2 (10:35→12:56)
--- NOTE | 2020-06-16 11:29 | NUR ---
Nutrition F/U RD reviewed pt's current EMR record including diet Hx, physician notes, nursing notes, pertinent labs/meds/procedures, care trends, and care activity. Admission Dx: Renal Failure, Sepsis PMH: Pt presents w/: Sepsis, Septic shock, Leukocytosis, Acute Respiratory Failure, Vent dependent, Hypernatremia, Hyperkalemia, SARAHY, CKD, hyperglycemia, Lactic acidosis, Transaminitis, Rhabdomyolysis, Elevated troponin level, Possible UTI, Meth abuse, LLE PVD, Encephalopathy (metabolic/septic), severe protein malnutrition per MD notes. 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 NGT remains clamped right now per RN. RN stated pt is still a/w MD's orders to resume TF. RN reported pt still has loose stools but has been tolerating TF Vital AF 1.2 @ 40 ml/hr with minimal residuals before yesterday's surgery. Stool output: 300 ml from flexiseal and pt receiving Banatrol BID per RN. Per MD note, pt on CPAP traials, if fail trials may warrant tracheostomy. Recommend resume TF Vital AF 1.2 @ 40 ml/hr w/ Banatrol BID via NGT if/when medically feasible per MD. Will continue monitor. Pertinent Medications: keppra, heparin, culturelle, NaHCO3, KCl IV, KCl/NaCl IV Pertinent Labs: Na 138 WNL (improved), BG 107 H (improved), BUN 25 H (improved), CRE 0.61 WNL, AST 50 H, WBC 7.7 WNL (improving), ALB 1.3 L Skin Integrity Comment: Carlos scale: 10. Per Welding Equipment Repairer note 06/12: multiple sDTIs noted; please refer to note for details Current % PO NPO, on EN NEW Estimated Energy Expenditure (kcals/day) 975-1170 kcal/day (25-30 kcal/kg adj ABW s/p L arm amputation for critical illness on vent, BMI < 30) Estimated Protein Required (g/day) 65-82gm/day (1.2-1.5 gm/kg IBW for wound healing and renal dz to start HD) Estimated Fluid Required (l/day) Per physician d/t renal Dz Problem/Etiology/Signs/Symptoms Predicted suboptimal nutrient intake r/t diet order 2/2 medical condition AEB NPO status. *ongoing, EN on hold Altered nutrition-related labs r/t renal dysfunction AEB elevated BUN and SCre lab values and Hx of Renal Disease. *ongoing, improving Altered nutrition-related labs r/t medication interaction AEB elevated BG lab values and steroid. *ongoing, improving Increased nutrient needs r/t metabolic demands AEB estimated calories and protein for wound healing. *ongoing Complicated GI function r/t compromised GI function AEB loose stools. *ongoing Expected Outcomes/Goals Monitor re-continuation and tolerance of nutrition support and intake w/ goal of pt meeting more than 75% of estimated nutritional needs, labs trending WNL, normal GI function, skin integrity/wt maintenance. Dietitian Recommendations *Recommend continue Vital AF 1.2 at 40 ml/hr, Banatrol BID via NGT Provides: 1152 kcal/day, 72 gm protein/day, and 779 ml free water/day Meets: 98% of upper end estimated caloric needs and 88% of upper end of estimated protein needs * Free Water Flush per physician d/t renal Dz Follow Up High Risk: F/U in 2-3 days Addendum: 06/16/20 at [address] CORRECTION: Dietitian Recommendations *Recommend continue Vital AF 1.2 at 40 ml/hr, Banatrol BID via NGT if/when medically feasible per MD Provides: 1152 kcal/day, 72 gm protein/day, and 779 ml free water/day Meets: 98% of upper end estimated caloric needs and 88% of upper end of estimated protein needs. EP,RD
--- NOTE | 2020-06-16 11:48 | NUR ---
Dietitian Recommendations *Recommend continue Vital AF 1.2 at 40 ml/hr, Banatrol BID via NGT Provides: 1152 kcal/day, 72 gm protein/day, and 779 ml free water/day Meets: 98% of upper end estimated caloric needs and 88% of upper end of estimated protein needs * Free Water Flush per physician d/t renal Dz Please see Nutrition F/U for details. BELTRAN CASTANEDA Addendum: 06/16/20 at [address] CORRECTION: CORRECTION: Dietitian Recommendations *Recommend continue Vital AF 1.2 at 40 ml/hr, Banatrol BID via NGT if/when medically feasible per MD Provides: 1152 kcal/day, 72 gm protein/day, and 779 ml free water/day Meets: 98% of upper end estimated caloric needs and 88% of upper end of estimated protein needs. BELTRAN CATSANEDA
--- NOTE | 2020-06-16 12:00 | NUR ---
RN Rounds Patient resting with eyes closed at this time, no signs of distress noted. Patient orally suctioned with small amount of white secretions out. Patient turned and repositioned. Safety precautions enforced.
[2020-06-16] MEDS: HYDROmorphone 2 MG/ML VIAL IVP PRN (12:56)
[2020-06-16] MEDS: FLUCONAZOLE 100 mg/ NS 50 ML IV SCH (14:06)
--- NOTE | 2020-06-16 15:50 | NUR ---
CHG CHG bath given and linens changed. Patient tolerated well. No signs of distress noted.
--- NOTE | 2020-06-16 16:00 | NUR ---
Wound Care Performed wound care per MD order. Changed soiled dressings. No signs of distress at this time. Patient tolerated well.
[2020-06-16] MEDS ORDERED: K PHOS 15 MM in NS 250 ML IV ONE (17:00)
--- NOTE | 2020-06-16 17:20 | NUR ---
Called Dr. Pena regarding patient's diet order. Patient Oh in surgery at this time, unavailable to take call. Dr. Pena to round later today.
[2020-06-16] MEDS ORDERED: NA PHOS 15 MM in NS 250 ML IV ONE (17:30)
--- NOTE | 2020-06-16 19:00 | NUR ---
Closing Notes Endorsed to music educator RN using SBAR format. No signs of distress noted.
--- NOTE | 2020-06-16 19:23 | NUR ---
Opening Note Received plan of care via sbar from endorsing RN.
--- NOTE | 2020-06-16 20:42 | NUR ---
PAIN: PRN Morphine 4mg given IVP for pain, pt tolerated well with no adverse effects. Monitoring at this time, all safety precautions in place, bed in lowest locked position.
--- NOTE | 2020-06-16 21:12 | NUR ---
Nsg Rounds: Patient in bed with eyes closed in no apparent acute distress and or discomfort.
[2020-06-16] MEDS: CEFEPIME 0.5 GM in D5W 50 ML IV SCH (21:23)
--- NOTE | 2020-06-16 22:21 | NUR ---
RN Rounds: Patient vitals stable, patient afebrile, no acute distress noted. bed in lowest locked position, all safety checks in place.
[2020-06-17] VITALS (29 sets, daily range): BP systolic 81–124
--- NOTE | 2020-06-17 | NUR ---
Tube Feed: Tube Feeding turned off per Dr. SUERO, patient to be potentially extubated in the am.
[2020-06-17] MEDS: HYDROmorphone 2 MG/ML VIAL IVP PRN ×2 (00:13→19:34)
--- NOTE | 2020-06-17 00:18 | NUR ---
PAIN: PRN Dilaudid 0.4mg given IVP for 10/10 pain, pt tolerated well with no adverse effects. Monitoring at this time, all safety precautions in place, bed in lowest locked position.
--- NOTE | 2020-06-17 02:00 | NUR ---
RN Rounds: Patient vitals stable, patient afebrile, no acute distress noted. bed in lowest locked position, all safety checks in place.
--- NOTE | 2020-06-17 04:16 | NUR ---
RN Rounds: Patient vitals stable, eyes clsoed, no acute distress noted. bed in lowest locked position, all safety checks in place.
[2020-06-17] MEDS: D5W 1,000 ML IV SCH ×2 (04:25→16:57)
[2020-06-17] MEDS: NOREPINEPHRINE BITARTRATE 4 MG in NS 246 ML IV PRN (04:25)
[2020-06-17] MEDS: MORPHINE 4 MG/ML INJ. SYRINGE IVP PRN ×2 (04:32→22:51)
--- NOTE | 2020-06-17 04:33 | NUR ---
PAIN: PRN Morphine 4mg given IVP for pain, pt nodded head with "yes" for pain assessment, tolerated well with no adverse effects. Monitoring at this time, all safety precautions in place, bed in lowest locked position.
[2020-06-17 05:58] LABS: BASOPHILS % (AUTO) 0.6 % (0.0-2.0); EOSINOPHILS # (AUTO) 0.1 K/uL (0.0-0.4); EOSINOPHILS % (AUTO) 1.2 % (0.0-4.0); HEMATOCRIT 24.2 % (36-48); HEMOGLOBIN 8.2 g/dL (12.0-16.0); LYMPHOCYTES # (AUTO) 0.4 K/uL (1.0-5.5); LYMPHOCYTES % (AUTO) 7.9 % (20.5-51.5); MEAN CORPUSCULAR HEMOGLOBIN 32 pg (27-31); MEAN CORPUSCULAR HGB CONC 34 % (32-36); MEAN CORPUSCULAR VOLUME 94 fL (79.0-98.0); MONOCYTES # (AUTO) 0.4 K/uL (0.0-1.0); MONOCYTES % (AUTO) 6.7 % (1.7-9.3); NEUTROPHILS # (AUTO) 4.5 K/uL (1.8-7.7); NEUTROPHILS % (AUTO) 83.6 % (40.0-70.0); PLATELET COUNT (AUTO) 71 K/uL (130-430); RED BLOOD CELL COUNT(AUTO) 2.57 MIL/uL (4.2-6.2); RED CELL DISTRIBUTION WIDTH 15.5 % (9.0-15.0); WHITE BLOOD COUNT (AUTO) 5.3 K/uL (4.8-10.8)
[2020-06-17 07:16] LABS: ALBUMIN 1.2 g/dL (3.4-4.8); CALCIUM 7.3 mg/dL (8.4-11.0); CREATININE 0.63 mg/dL (0.55-1.30); PHOSPHORUS 3.1 mg/dL (2.7-4.5); POTASSIUM 3.1 mmol/L (3.5-5.1); TOTAL BILIRUBIN 0.5 mg/dL (0.0-1.0)
--- NOTE | 2020-06-17 07:28 | NUR ---
Closing Notes Endorsed to AM shift RN using SBAR format. No signs of distress noted.
--- NOTE | 2020-06-17 07:45 | NUR ---
DR ARREDONDO CAME TO SEE THE PATIENT, HE SAID TO PLACE PATIENT ON CPAP 10 PS 5 FOR 30 MIN, AND HE WILL COME AND SEE HOW PATIET DOES, I WILL CLOSELY MONITOR THE PATIENT.
[2020-06-17] MEDS: PANTOPRAZOLE SODIUM 40 MG/VIAL (PROTONIX) IVP SCH ×2 (08:11→20:22)
[2020-06-17] MEDS: CEFEPIME 0.5 GM in D5W 50 ML IV SCH ×2 (08:14→20:23)
--- NOTE | 2020-06-17 08:20 | NUR ---
RT NOTES RSBI 66 NIF 18-21 X3.
[2020-06-17 08:27] LABS: ERYTHROCYTE SEDIMENTATION RATE 12 MM/HR (0-20)
[2020-06-17] MEDS: SODIUM BICARBONATE 650 MG TABLET PO SCH ×2 (09:53→20:22)
[2020-06-17] MEDS: LACTOBACILLUS RHAMNOSUS GG 1 CAP CAPSULE NG SCH ×2 (09:53→20:22)
[2020-06-17] MEDS: levETIRAcetam 500 MG TABLET PO SCH ×2 (09:53→20:22)
[2020-06-17] MEDS: BALSAM PERU/CASTOR OIL 60 GM OINT...G. TP SCH (09:54)
--- NOTE | 2020-06-17 10:00 | NUR ---
Patient is tolerating the cpap mode, rr 19, o2 sat 99%, patient is comfortable, hob elevated to 45 degrees, turned off Levophed, i will closeley monitor patient's vitals sign.
--- NOTE | 2020-06-17 11:55 | NUR ---
RT NOTES Pt extubated and placed on 2L nc. Orally sxn provided before cuff deflation. No adverse reactions noted. will monitor pt.
--- NOTE | 2020-06-17 12:00 | NUR ---
Recv order fr pulmonologists to extubate patient, r.t. extubated the patient and placed on 2L via nc, patient O2 sat is 100% at 2L , no shortness of breath noted, i will continue to monitor the patient.
[2020-06-17] MEDS: FLUCONAZOLE 100 mg/ NS 50 ML IV SCH (13:13)
--- NOTE | 2020-06-17 16:00 | NUR ---
Patient states she is hungry, we notifed dr harmon, he said to get speech evaluation.
--- NOTE | 2020-06-17 18:26 | NUR ---
All nursing care and issues all have been addressed, called dr ervin parham for potassium replacement, received an order of 40 meq via ng tube, patient tolerated extubation, saturation between 97 to 100%, no breathing discomfort, skin care given, i will endorse care to the orthopaedic physician assistant nurse.
[2020-06-17] MEDS ORDERED: POTASSIUM CHLORIDE 20 MEQ/PKT PACKET PO ONE (18:30)
--- NOTE | 2020-06-17 19:19 | NUR ---
Opening Note Received plan of care via sbar from endorsing RN.
--- NOTE | 2020-06-17 19:46 | NUR ---
PAIN: PRN Dilaudid 0.4mg given IVP for 10/10 pain per numeric pain scale, pt tolerated well with no adverse effects. Monitoring at this time, all safety precautions in place, bed in lowest locked position.
[2020-06-17] MEDS ORDERED: POTASSIUM CHLORIDE 20 MEQ/PKT PACKET ONE (20:01)
--- NOTE | 2020-06-17 20:02 | NUR ---
PAIN: Medication found to be only slightly effective, patient states pain remains 5/10 on numeric scale. Pt positioned for comfort, distraction with music provided.
[2020-06-17] MEDS: metroNIDAZOLE 500 mg/NS 100 ML IV SCH (21:33)
--- NOTE | 2020-06-17 22:55 | NUR ---
PAIN: PRN Morphine 4mg given IVP for pain, pt nodded head with "yes" for pain assessment 5/10 pain, tolerated well with no adverse effects. Monitoring at this time, all safety precautions in place, bed in lowest locked position.
[2020-06-18] VITALS (21 sets, daily range): BP systolic 96–113
--- NOTE | 2020-06-18 | NUR ---
RN Rounds: Patient vitals stable, patient afebrile, no acute distress noted. bed in lowest locked position, all safety checks in place.
[2020-06-18] MEDS: D5W 1,000 ML IV SCH ×3 (02:31→23:47)
[2020-06-18] MEDS: MORPHINE 4 MG/ML INJ. SYRINGE IVP PRN ×3 (02:32→11:33)
--- NOTE | 2020-06-18 03:17 | NUR ---
PAIN: Medication found to be only slightly effective, patient states, "it just hurts" pain remains 5/10 on numeric scale. Pt positioned for comfort, distraction with music provided.
--- NOTE | 2020-06-18 05:48 | NUR ---
PAIN: PRN Morphine 4mg given IVP for pain, patient stated 5/10 pain scale.
--- NOTE | 2020-06-18 06:23 | NUR ---
PAIN: PRN Morphine 4mg given IVP for pain not effective, patient states pain remains 5/10 on pain scale. Distraction with music provided, repositioned and cool cloth placed to forehead for comfort. Will monitor
--- NOTE | 2020-06-18 07:04 | NUR ---
Closing Notes Endorsed to AM shift RN using SBAR format. No signs of distress noted.
[2020-06-18 07:27] LABS: BASOPHILS % (AUTO) 0.3 % (0.0-2.0); EOSINOPHILS # (AUTO) 0.1 K/uL (0.0-0.4); EOSINOPHILS % (AUTO) 1.4 % (0.0-4.0); HEMATOCRIT 26.9 % (36-48); HEMOGLOBIN 9.1 g/dL (12.0-16.0); LYMPHOCYTES # (AUTO) 0.4 K/uL (1.0-5.5); LYMPHOCYTES % (AUTO) 8.2 % (20.5-51.5); MEAN CORPUSCULAR HEMOGLOBIN 32 pg (27-31); MEAN CORPUSCULAR HGB CONC 34 % (32-36); MEAN CORPUSCULAR VOLUME 95 fL (79.0-98.0); MONOCYTES # (AUTO) 0.3 K/uL (0.0-1.0); MONOCYTES % (AUTO) 6.5 % (1.7-9.3); NEUTROPHILS % (AUTO) 83.6 % (40.0-70.0); PLATELET COUNT (AUTO) 80 K/uL (130-430); RED BLOOD CELL COUNT(AUTO) 2.83 MIL/uL (4.2-6.2); RED CELL DISTRIBUTION WIDTH 15.7 % (9.0-15.0); WHITE BLOOD COUNT (AUTO) 4.8 K/uL (4.8-10.8)
--- NOTE | 2020-06-18 07:57 | NUR ---
CALLED LM FOR SWALLOW EVAL 2ND ATTEMPT NUMBER DIALED
[2020-06-18 08:00] LABS: CALCIUM 7.2 mg/dL (8.4-11.0); CREATININE 0.57 mg/dL (0.55-1.30); POTASSIUM 3.5 mmol/L (3.5-5.1)
--- NOTE | 2020-06-18 08:00 | NUR ---
AM ASSESSMENT. PT AWAKE AND AFEBRILE, SHE STATED "WHEN CAN I HAVE SOMETHING TO EAT?", PT FOR SWALLOW EVALUATION, FEEDING NGT CONTINUES AT 40 ML PER HR, GENTLY TURNED PT AND REPOSITIONED IN BED, LEFT ARM STUMP ELEVATED, PT WILL CONTINUE TO MONITOR.
[2020-06-18 08:16] LABS: C-REACTIVE PROTEIN QUANT 4.8 mg/dL (0-0.5); ERYTHROCYTE SEDIMENTATION RATE 17 MM/HR (0-20)
--- NOTE | 2020-06-18 08:45 | NUR ---
STUMP CARE. Aziza RODRIGUEZ, AT BEDSIDE, REMOVED THE BANDAGE FROM LEFT ARM, SCANTY BLEEDING TO WOUND, STAPLE WIRES INTACT, STUMP DRY, XEROFOAM DRESSING AND ABD DRESSING TO COVER, ELOISE WRAP BANDAGE REAPPLIED.
[2020-06-18] MEDS: PANTOPRAZOLE SODIUM 40 MG/VIAL (PROTONIX) IVP SCH ×2 (08:50→20:32)
[2020-06-18] MEDS: CEFEPIME 0.5 GM in D5W 50 ML IV SCH ×2 (08:50→20:33)
[2020-06-18] MEDS: LACTOBACILLUS RHAMNOSUS GG 1 CAP CAPSULE NG SCH ×2 (08:51→20:32)
[2020-06-18] MEDS: SODIUM BICARBONATE 650 MG TABLET PO SCH ×2 (08:51→20:32)
[2020-06-18] MEDS: levETIRAcetam 500 MG TABLET PO SCH ×2 (08:51→20:32)
[2020-06-18] MEDS: BALSAM PERU/CASTOR OIL 60 GM OINT...G. TP SCH (08:52)
[2020-06-18] MEDS: HYDROcodone/ACETAMIN 5-325 MG TAB (NORCO/ VICODIN) PO PRN (09:00)
--- NOTE | 2020-06-18 09:00 | NUR ---
PAIN PT VERBALIZED PAIN TO LEFT ARM, MEDICATED WITH NORCO 5/325 MG VIA GTUBE.
[2020-06-18] MEDS: metroNIDAZOLE 500 mg/NS 100 ML IV SCH ×2 (10:20→23:22)
--- NOTE | 2020-06-18 11:30 | NUR ---
WOUND CARE. FOAM DRESSINGS REMOVED FROM RIGHT ELBOW, RIGHT HEEL, LEFT UPPER BACK, LEFT UNDER ARM, SACRAL AREA. WOUND TREATMENT DONE USING SALINE TO WASH WOUND WITH, MOISTURE BARRIER CREAM, VENELEX OINTMENT TO AFFECTED AREAS, FOME DRESSINGS TO COVER,
[2020-06-18] MEDS: FLUCONAZOLE 100 mg/ NS 50 ML IV SCH (12:58)
--- NOTE | 2020-06-18 15:10 | NUR ---
FAMILY. PT'S NEPHEW KOKO CALLED, UPDATE ON HER STATUS GIVEN. APPROACHED PATIENT, SHE STATED "THAT WAS MY BROTHER KOKO'S SON".
--- NOTE | 2020-06-18 16:35 | NUR ---
S.T. SWALLOW EVAL SWALLOW EVAL COMPLETED. PT PRESENTS W/ FUNCTIONAL ORAL SWALLOW FOR PUREE AND LIQUIDS. MOD PHARYNGEAL DYSPHAGIA W/ COUGHING ON THIN LIQUIDS INDICATING RISK FOR ASPIRATION. RISK FOR MALNUTRITION AND DEHYDRATION D/T DECREASED INTEREST FOR P.O. W/ C/O UPSET STOMACH AFTER SMALL AMOUNT OF P.O. TRIALS. PT DECLINED FURTHER PRESENTATION OF THIN LIQUIDS. SHE PREFERS THICKENED LIQUIDS. REC: PUREE DIET W/ THICKENED LIQUIDS (NECTAR CONSISTENCY) MEDICALLY INDICATED. NURSE ALTHEA NOTIFIED.
--- NOTE | 2020-06-18 17:15 | NUR ---
. DR Issac LOPEZ IN THE UNIT AND WENT TO EXAMINE PT.
--- NOTE | 2020-06-18 19:20 | NUR ---
OPENING NOTE SBAR report received from off coming RN for continuity of care. Pt laying in bed with eyes closed, opens eyes to verbal stimuli. Pt on 2 L NC with O2 saturations above 90%. L) IJ CVC with D5W infusing @ 100 ml/hr. Coronel catheter draining to gravity with yellow output and FMS draining to gravity with dark brown liquid output.
--- NOTE | 2020-06-18 20:05 | NUR ---
Pt laying in bed, opens eyes to verbal stimuli. Pt alert and oriented x 4 and able to follow commands. Pt on 2 L O2 via NC, oxygen saturations above 90% without any s/s of respiratory distress noted. L) IJ CVC in place with D5W infusing @ 100 ml/hr. Coronel catheter and FMS continue to be in place. Pt tolerated assessment and cares. Turned and repositioned. Bed locked and in lowest position. Call light within reach. Will continue to monitor and assess.
--- NOTE | 2020-06-18 20:30 | NUR ---
NGT REMOVAL NGT removed per order. Swallow evaluation done earlier today and passed. Bedside swallow evaluation done before removal of NGT. Pt did not cough or show any s/s of choking when swallowing. Following diet order per orders.
--- NOTE | 2020-06-18 22:40 | NUR ---
TRANSFER TO [facility] Pt transferred to room 113 via bed, accompanied by this RN and nurse discharge planner following ACLS protocol for monitoring. Pt awake and alert. Pt remained on 2L O2 via NC, no s/s of respiratory distress noted. Pt oriented to room and call light within reach. Bed locked in lowest position, safety precautions in place. SBAR report provided to [facility] RN, all questions addressed.
--- NOTE | 2020-06-18 22:44 | NUR ---
ADMIT NOTE Received pt from ICU to the floor with a diagnosis of renal failure, sepsis. Admission process initiated. patient oriented to pain management, safety and call light.
--- NOTE | 2020-06-18 23:22 | NUR ---
Assessment, Flagyl Assessment complete. Due antibiotic administered and infusing well, patient tolerating.
--- NOTE | 2020-06-18 23:50 | NUR ---
Snack, IVF Patient reporting she is hungry and was given a snack; pudding. HOB was elevated, she swallowed and did not cough; tolerated. She was provided with a partial bed bath, CHG bath, linen changed and repositioned. Hung new bag of IVF along with new tubing.
[2020-06-19] VITALS: BP_SYST 106
[2020-06-19] MEDS: LORazepam 2 MG/ML VIAL IVP PRN (00:46)
--- NOTE | 2020-06-19 00:50 | NUR ---
Ativan Patient was awake feels restless; reports can't sleep. Ativan given as ordered. Safety precautions in place and call light w/in reach.
--- NOTE | 2020-06-19 02:05 | NUR ---
sleeping Patient is sleeping quietly, no distress, non labored breathing. Safety, aspiration precautions maintained.
--- NOTE | 2020-06-19 04:35 | NUR ---
[facility] and [facility]. She is awake and tolerated procedure. IVF infusing well via central line. She is resting w/ eyes closed, is calm and quiet; no distress.
[2020-06-19] MEDS: FLU VACC QS2020-21(65UP)/PF 0.7 ML/SYRINGE I.M. PRN (05:46)
--- NOTE | 2020-06-19 05:46 | NUR ---
Flu shot Patient agreed to receive flu shot, information and side effects reviewed and she said ok, did not have questions. She tolerated.
--- NOTE | 2020-06-19 05:56 | NUR ---
Lab draw museum technician at bedside for blood draw.
--- NOTE | 2020-06-19 07:10 | NUR ---
Closing note X-ray tech at bedside for chest x-ray; assisted with patient position. Patient tolerated procedure and resting in comfortable position. No distress, non labored breathing on 2L NC. IVF infusing well via Central line to [facility]. Resting on MANNY mattress, SCD's on, side rails up, Coronel catheter drainage bag to gravity, flexiseal in place. Will endorse care to day shift nurse.
[2020-06-19 07:17] LABS: BASOPHILS % (AUTO) 0.6 % (0.0-2.0); EOSINOPHILS # (AUTO) 0.1 K/uL (0.0-0.4); EOSINOPHILS % (AUTO) 2.4 % (0.0-4.0); HEMATOCRIT 24.4 % (36-48); LYMPHOCYTES # (AUTO) 0.4 K/uL (1.0-5.5); LYMPHOCYTES % (AUTO) 11.2 % (20.5-51.5); MEAN CORPUSCULAR HEMOGLOBIN 32 pg (27-31); MEAN CORPUSCULAR HGB CONC 33 % (32-36); MEAN CORPUSCULAR VOLUME 97 fL (79.0-98.0); MONOCYTES # (AUTO) 0.3 K/uL (0.0-1.0); MONOCYTES % (AUTO) 7.7 % (1.7-9.3); NEUTROPHILS # (AUTO) 2.7 K/uL (1.8-7.7); NEUTROPHILS % (AUTO) 78.1 % (40.0-70.0); PLATELET COUNT (AUTO) 83 K/uL (130-430); RED BLOOD CELL COUNT(AUTO) 2.51 MIL/uL (4.2-6.2); RED CELL DISTRIBUTION WIDTH 16.8 % (9.0-15.0); WHITE BLOOD COUNT (AUTO) 3.5 K/uL (4.8-10.8)
[2020-06-19 07:35] LABS: ALBUMIN 1.2 g/dL (3.4-4.8); CALCIUM 7.2 mg/dL (8.4-11.0); CREATININE 0.54 mg/dL (0.55-1.30); POTASSIUM 3.2 mmol/L (3.5-5.1); TOTAL BILIRUBIN 0.4 mg/dL (0.0-1.0)
[2020-06-19 07:50] VITALS: BP_SYST 108
--- NOTE | 2020-06-19 08:00 | NUR ---
am notes pt in bed. a/ox2. res even and unlabored. not in acute distress. on o2 2lnc. central line left intra jugular patent. dressing clean dry and intact. ivf infusing well. hob elevated. no s/s of aspiration noted/ coronado cath patent. draining yellow color urine. safety and fall lpreacutions in place. call light within reach. will continue to monitor
[2020-06-19 08:06] LABS: C-REACTIVE PROTEIN QUANT 2.3 mg/dL (0-0.5)
[2020-06-19] MEDS: CEFEPIME 0.5 GM in D5W 50 ML IV SCH ×2 (08:54→21:53)
[2020-06-19] MEDS: levETIRAcetam 500 MG TABLET PO SCH ×2 (08:54→21:52)
[2020-06-19] MEDS: PANTOPRAZOLE SODIUM 40 MG/VIAL (PROTONIX) IVP SCH ×2 (08:54→21:52)
[2020-06-19] MEDS: SODIUM BICARBONATE 650 MG TABLET PO SCH ×2 (08:54→21:52)
[2020-06-19] MEDS: LACTOBACILLUS RHAMNOSUS GG 1 CAP CAPSULE NG SCH ×2 (08:54→21:52)
[2020-06-19 09:59] LABS: ERYTHROCYTE SEDIMENTATION RATE 12 MM/HR (0-20)
[2020-06-19] MEDS: HYDROcodone/ACETAMIN 5-325 MG TAB (NORCO/ VICODIN) PO PRN ×3 (11:10→22:05)
[2020-06-19] MEDS: metroNIDAZOLE 500 mg/NS 100 ML IV SCH ×2 (11:11→21:53)
[2020-06-19] MEDS: BALSAM PERU/CASTOR OIL 60 GM OINT...G. TP SCH (11:13)
--- NOTE | 2020-06-19 11:17 | NUR ---
C/O OF PAIN LEFT ARM PT C/ OF PAIN LEFT ARM 01/21. MEDICATED WITH NORCO 5 MG PO ORDERED. NOT IN ACUTE DISTRESS. PT TURNED AND REPOSITIONED..WILL CONTINUE TO MONITOR
[2020-06-19 12:00] VITALS: BP_SYST 94
--- NOTE | 2020-06-19 12:00 | NUR ---
rounds pt stable sleeping comfortably. vitals stable .not.in acute distress. ivf infusing well.will conitnue to monitor
--- NOTE | 2020-06-19 12:40 | NUR ---
Discharge Planning: DCP faxed pt referral to [facility] (F [phone] p [phone]) DCP to follow up
[2020-06-19] MEDS: D5W 1,000 ML IV SCH ×2 (13:07→23:53)
[2020-06-19] MEDS: FLUCONAZOLE 100 mg/ NS 50 ML IV SCH (13:12)
--- NOTE | 2020-06-19 15:57 | NUR ---
rounds pt stable resting comfortably. not in acute distress. ivf infusing well. repositioned with pillow. hob elevated. will conintue to monitor
--- NOTE | 2020-06-19 16:26 | NUR ---
Nutrition F/U RD reviewed pt's current EMR record including diet Hx, physician notes, nursing notes, pertinent labs/meds/procedures, care trends, and care activity. Admission Dx: Renal Failure, Sepsis PMH: Pt presents w/: Sepsis, Septic shock, Leukocytosis, Acute Respiratory Failure, Vent dependent, Hypernatremia, Hyperkalemia, SARAHY, CKD, hyperglycemia, Lactic acidosis, Transaminitis, Rhabdomyolysis, Elevated troponin level, Possible UTI, Meth abuse, LLE PVD, Encephalopathy (metabolic/septic), severe protein malnutrition per MD notes. Pertinent Medical Hx: Pt is POD 3 s/p L arm amputation; pt was extubated 06/18; swallow eval completed 06/18 -- ST rec for pureed diet w/ NTL SARS-CoV-2 Ag Rapid 05/30 Negative COVID-19 PCR 05/31 Negative Current Diet Order/Nutrition Support: Regular, pureed, NTL x0 days Subjective Info: Pt was seen sleeping in bed at time of RD visit. Bedscale wt taken: 149# -- unsure of reliability d/t beddings/linens. RN reported that ate 80% of breakfast and 50% of lunch -- and that pt requested ice cream. She also reported that pt does not care for Ensure Enlive ONS. No new wt recorded since 06/01 -- 90#/41 kg. Based on IBW, adjusted wt for L arm amputation: 116#/53 kg. Pertinent Medications: norco, culturelle, protonix IV Pertinent Labs: BG 99 WNL (improved), BUN 12 WNL (improved), CRE 0.54 L, AST 27 WNL (improved), WBC 3.2 L, ALB 1.2 L Skin Integrity Comment: Carlos scale: 11. Per Plant Director note 06/12: multiple sDTIs noted; please refer to note for details; BLE 2+ pitting and BUE 1+ pitting edema Current % PO NPO, on EN NEW Estimated Energy Expenditure (kcals/day) 3734-5946 kcal/day (30-35 kcal/kg Adj IBW (L arm amputation) for surgical healing) NEW Estimated Protein Required (g/day) 64-80 gm/day (1.2-1.5 gm/kg Adj IBW (L arm amputation) for wound healing and renal Dz/HD) Estimated Fluid Required (l/day) Per physician d/t renal Dz Problem/Etiology/Signs/Symptoms Predicted suboptimal nutrient intake r/t diet order 2/2 medical condition AEB NPO status. *ongoing, EN on hold Altered nutrition-related labs r/t renal dysfunction AEB elevated BUN and SCre lab values and Hx of Renal Disease. *ongoing, improving Altered nutrition-related labs r/t medication interaction AEB elevated BG lab values and steroid. *ongoing, improving Increased nutrient needs r/t metabolic demands AEB estimated calories and protein for wound healing. *ongoing Complicated GI function r/t compromised GI function AEB loose stools. *no longer applicable Expected Outcomes/Goals Monitor re-continuation and tolerance of nutrition support and intake w/ goal of pt meeting more than 75% of estimated nutritional needs, labs trending WNL, normal GI function, skin integrity/wt maintenance. Dietitian Recommendations * Recommend continuing pureed diet w/ NTL (ONS Ensure Enlive TID comes standard w/ pureed diet; 1050 kcal/day, 60 gm protein/day) * Encourage increase PO intakes Follow Up High Risk: F/U in 2-3 days
[2020-06-19 16:34] VITALS: BP_SYST 101
--- NOTE | 2020-06-19 16:48 | NUR ---
Dietitian Recommendations * Recommend continuing pureed diet w/ NTL (ONS Ensure Enlive TID comes standard w/ pureed diet; 1050 kcal/day, 60 gm protein/day) * Encourage increase PO intakes LP, RD Please refer to Nutrition F/U for details.
--- NOTE | 2020-06-19 17:40 | NUR ---
CALLED MD CALLED DR LOPEZ FOR K LEVEL 3.2 RECEIVED NEW ORDER FOR K DUR ORDER ENTERED.WAITING PHARMACY TO VERIFIED
--- NOTE | 2020-06-19 18:41 | NUR ---
C/O OF PAIN PT C/O OF LEFT ARM PAIN 01/21.MEDICATED. WITH NORCO 5 MG PO ORDERED. NOT IN ACUTE DUSTRESS. SAFETY ANDFALL PRECAUTIONS IN PLACE. IVF INFUSING WELL .KEPT COMFORTABLE. WILL ENDORSE TO NIGHT NURSE
[2020-06-19] MEDS ORDERED: POTASSIUM CHLORIDE 20 MEQ TAB.PRT.SR PO SCH (19:00)
--- NOTE | 2020-06-19 19:15 | NUR ---
closing notes pt stable not in acute distress. k dur 40 alvarez po given as ordered. pt tolerated well. kept comfortable. report given to reva SALGUERO
--- NOTE | 2020-06-19 19:30 | NUR ---
OPENING NOTES: Received report from dayshift nurse. Patient is laying in bed and is alert and oriented. She does not have any concerns at this time. Central line noted left jugular with dry dressing. Flexiseal noted. Coronel catheter also noted draining to gravity. Patient is on 2L O2 via NC tolerating well. ensured all safety precautions. Bed is locked and in the lowest position with alarm on, call light within reach.
[2020-06-19 20:00] VITALS: BP_SYST 116
--- NOTE | 2020-06-19 21:45 | NUR ---
MEDICATION ADMINISTRATION: Patient's vital signs are within normal limits. She c/o pain on her left arm and is requesting pain meds. Medications were administered as ordered. Patient was educated about [place] and it's side effects such as drowsiness and constipation, she verbalized understanding. Will continue to monitor patient.
--- NOTE | 2020-06-20 | NUR ---
RN ROUNDS: Patient is laying in bed and appears to be asleep. She is not exhibiting an s/s of distress or discomfort at this time. Will continue to monitor patient. Bed is locked and in the lowest position with alarm on, call light within reach.
[2020-06-20 00:15] VITALS: BP_SYST 100
--- NOTE | 2020-06-20 03:15 | NUR ---
RN ROUNDS: Patient is laying in bed and is soiled. With assistance from Fatimah, we cleansed patient and changed linen. Flexiseal bag was at 500 mL and appears to be leaking and rectum. Bag was changed and will continue to monitor. Patient c/o pain at this time and [place] was given as ordered. Will continue to monitor patient.
[2020-06-20] MEDS: HYDROcodone/ACETAMIN 5-325 MG TAB (NORCO/ VICODIN) PO PRN ×5 (03:31→21:38)
[2020-06-20] MEDS: D5W 1,000 ML IV SCH ×3 (06:01→23:32)
--- NOTE | 2020-06-20 07:10 | NUR ---
CLOSING NOTES: Patient is laying in bed and is alert and oriented. Central line noted left jugular patent and intact with dry dressing. Flexiseal in place and draining. Coronel catheter draining to gravity with yellow urine. Patient is on 2L O2 via NC tolerating well. All Needs were met throughout shift. Ensured all safety precautions. Bed is locked and in the lowest position with alarm on, call light within reach. Will endorse to dayshift nurse.
--- NOTE | 2020-06-20 07:45 | NUR ---
Opening Notes Patient is awake, alert and oriented x3. No resp distress noted. Breathing is even and unlabored. Pt remains on continuous oxygen via NC @ 2 LPM, tolerated well. Patient is c/o 8/10 general body pain, requesting pain meds. Central line noted on left jugular, triple lumen. D5W @ 100 cc/hr, infusing well at this time. Coronel catheter in place, draining by gravity. Yellow and clear urine noted. SCDs in place. All needs met at this time. Safety and fall precautions in place. Call light within reach. Bed in lowest position, alarm on, locked. Will continue to monitor.
[2020-06-20 08:00] VITALS: BP_SYST 116
[2020-06-20] MEDS: CEFEPIME 0.5 GM in D5W 50 ML IV SCH ×2 (08:34→21:39)
[2020-06-20] MEDS: levETIRAcetam 500 MG TABLET PO SCH ×2 (08:35→21:37)
[2020-06-20] MEDS: PANTOPRAZOLE SODIUM 40 MG/VIAL (PROTONIX) IVP SCH ×2 (08:35→21:38)
[2020-06-20] MEDS: LACTOBACILLUS RHAMNOSUS GG 1 CAP CAPSULE NG SCH ×2 (08:35→21:37)
[2020-06-20] MEDS: SODIUM BICARBONATE 650 MG TABLET PO SCH ×2 (08:35→21:37)
--- NOTE | 2020-06-20 08:35 | NUR ---
[place] 5-325 mg x pain Patient is c/o 03/23 gen body pain, requesting pain meds. Administered [place] 5-325 mg PO, tolerated well. Will continue to monitor.
[2020-06-20] MEDS: BALSAM PERU/CASTOR OIL 60 GM OINT...G. TP SCH (08:36)
--- NOTE | 2020-06-20 10:14 | NUR ---
Notes Patient is laying in bed and resting. Pt is alert and oriented x2. Noted with episodes of confusion. Coronel catheter and Flexiseal in place at this time. IV ATB infusing well. Repositioned pt in bed. No needs at this time. Will continue to monitor.
[2020-06-20] MEDS: metroNIDAZOLE 500 mg/NS 100 ML IV SCH ×2 (11:15→22:27)
[2020-06-20] MEDS: FLUCONAZOLE 100 mg/ NS 50 ML IV SCH (12:35)
--- NOTE | 2020-06-20 12:35 | NUR ---
[place] 5-325 mg x pain Patient is c/o 03/23 gen body pain, requesting pain meds. Administered [place] 5-325 mg PO, tolerated well. Will continue to monitor.
[2020-06-20 12:36] VITALS: BP_SYST 112
--- NOTE | 2020-06-20 12:55 | NUR ---
Notes Patient is laying in bed, resting with eyes closed. IV ATB infusing well at this time. No resp distress noted. Breathing is even and unlabored. Shows no signs of pain at this time. Will continue to monitor.
--- NOTE | 2020-06-20 14:22 | NUR ---
Notes Patient is sleeping in bed at this time. No resp distress noted. Breathing is even and unlabored. Pt shows no signs of pain at this time. Will continue to monitor.
[2020-06-20 16:33] VITALS: BP_SYST 109
--- NOTE | 2020-06-20 16:41 | NUR ---
DC Planning: discussed dcp with pt, to [facility]. The pt agreed with POC/transfer to [facility].-- Dr Sarah made aware that the pt is accepted at [facility] with possible bed available today. The md stated pt may dc today with same medical treatments. >> I called Rosa/ Admission / [facility], she already left for the day. Cm to f/u in am.
--- NOTE | 2020-06-20 16:45 | NUR ---
Notes Patient is laying in bed and watching TV. No resp distress noted. Breathing is even and unlabored. Pt denies any pain at this time. Emptied out patients coronado catheter, emptied out 1200 cc of clear and yellow urine. No foul odor noted. Repositioned patient in bed. Will continue to monitor.
--- NOTE | 2020-06-20 17:16 | NUR ---
P.T. NOTES P.T. EVAL COMPLETED; REFER TO EVAL FOR DETAILS.
[2020-06-20 17:59] LABS: CALCIUM 7.1 mg/dL (8.4-11.0); CREATININE 0.61 mg/dL (0.55-1.30); POTASSIUM 3.5 mmol/L (3.5-5.1)
--- NOTE | 2020-06-20 18:05 | NUR ---
Closing Notes Patient is laying in her bed, sleeping at this time. No resp distress noted. Breathing is even and unlabored. Pt shows no signs of pain at this time. Central line in line on left jugular, triple lumen. D5W @ 100 cc/hr, infusing well at this time. Coronel catheter in place, draining by gravity. Flexiseal in place, emptied out 500 cc of loose stool. Dinner is at bedside. All needs met at this time. Safety and fall precautions in place. Bed in lowest position, alarm on, locked. Will continue to monitor.
[2020-06-20 18:13] LABS: C-REACTIVE PROTEIN QUANT 1.5 mg/dL (0-0.5)
--- NOTE | 2020-06-20 19:30 | NUR ---
OPENING NOTES: Patient is laying in bed and is alert and oriented. Patient is on tele monitor. Central line noted left jugular patent and intact with dry dressing. Flexiseal in place and draining. Coronel catheter draining to gravity with yellow urine. Patient is on 2L O2 via NC tolerating well. Patient c/o of pain on left arm. Ensured all safety precautions. Bed is locked and in the lowest position with alarm on, call light within reach.
[2020-06-20 20:00] VITALS: BP_SYST 114
--- NOTE | 2020-06-20 21:35 | NUR ---
MEDICATION ADMINISTRATION: Patient is laying in bed, in stable condition, vital signs are within normal limits. She c/o pain 6/10 on left arm. Administered medications as ordered by physician. I educated patient about Protonix, she verbalized understanding. Bed is in the lowest position, alarm is on, and call light within reach. Will continue to monitor.
--- NOTE | 2020-06-20 23:00 | NUR ---
RN ROUNDS: Patient is laying in bed and appears to be asleep, she is not exhibiting any s/s of distress or discomfort. I will continue to monitor patient.
[2020-06-21] VITALS: BP_SYST 116
--- NOTE | 2020-06-21 01:00 | NUR ---
RN ROUNDS: Patient is laying in bed with no s/s of distress or discomfort. Coronel catheter emptied with 700 mL of clear urine output. Flexiseal is draining well. Will continue to monitor patient. Bed is in the lowest position, call light within reach, and alarm on.
--- NOTE | 2020-06-21 03:01 | NUR ---
RN ROUNDS: Patient is resting in bed and continues to be asleep. She is in stable condition. Will continue to monitor patient.
[2020-06-21] MEDS: HYDROcodone/ACETAMIN 5-325 MG TAB (NORCO/ VICODIN) PO PRN ×2 (06:32→11:46)
[2020-06-21 07:01] LABS: BASOPHILS % (AUTO) 1.1 % (0.0-2.0); EOSINOPHILS # (AUTO) 0.1 K/uL (0.0-0.4); EOSINOPHILS % (AUTO) 3.7 % (0.0-4.0); HEMATOCRIT 24.4 % (36-48); HEMOGLOBIN 8.2 g/dL (12.0-16.0); LYMPHOCYTES # (AUTO) 0.5 K/uL (1.0-5.5); LYMPHOCYTES % (AUTO) 12.4 % (20.5-51.5); MEAN CORPUSCULAR HEMOGLOBIN 32 pg (27-31); MEAN CORPUSCULAR HGB CONC 34 % (32-36); MEAN CORPUSCULAR VOLUME 96 fL (79.0-98.0); MONOCYTES # (AUTO) 0.3 K/uL (0.0-1.0); MONOCYTES % (AUTO) 7.2 % (1.7-9.3); NEUTROPHILS # (AUTO) 2.8 K/uL (1.8-7.7); NEUTROPHILS % (AUTO) 75.6 % (40.0-70.0); PLATELET COUNT (AUTO) 119 K/uL (130-430); RED BLOOD CELL COUNT(AUTO) 2.53 MIL/uL (4.2-6.2); RED CELL DISTRIBUTION WIDTH 16.6 % (9.0-15.0); WHITE BLOOD COUNT (AUTO) 3.7 K/uL (4.8-10.8)
--- NOTE | 2020-06-21 07:15 | NUR ---
CLOSING NOTES: Patient is laying in bed and is alert and oriented. Central line on left jugular patent and intact with dry dressing. Flexiseal in place and draining, there is leaking present around flexiseal. . Coronel catheter draining to gravity with yellow urine. Patient is on 2L O2 via NC tolerating well. Dressing changes were done this morning at 0530 as ordered by William. Patient tolerated well. All Needs were met throughout shift. Ensured all safety precautions. Bed is locked and in the lowest position with alarm on, call light within reach. Will endorse to dayshift nurse.
[2020-06-21 07:20] LABS: CALCIUM 7.6 mg/dL (8.4-11.0); CREATININE 0.55 mg/dL (0.55-1.30); POTASSIUM 3.2 mmol/L (3.5-5.1)
--- NOTE | 2020-06-21 07:55 | NUR ---
Opening Notes Patient is laying in bed, resting at this time. Alert and oriented x3. No resp distress noted. Breathing is even and unlabored. Pt denies any pain at this time. Patient denies any NV, cough or abnormal bleeding. Central line noted on left upper jugular, triple lumen. Dressing dry and intact at this time. D5 1/2 NS @ 75 cc/hr, infusing well at this time. Coronel catheter in place, draining by gravity. Flexiseal in place, some leaking noted. All needs met. Safety and fall precautions in place at this time. Call light within reach. Bed in lowest position, alarm on, locked. Will continue to monitor.
[2020-06-21 08:00] VITALS: BP_SYST 106
[2020-06-21] MEDS: LACTOBACILLUS RHAMNOSUS GG 1 CAP CAPSULE NG SCH (08:19)
[2020-06-21] MEDS: BALSAM PERU/CASTOR OIL 60 GM OINT...G. TP SCH (08:19)
[2020-06-21] MEDS: SODIUM BICARBONATE 650 MG TABLET PO SCH (08:19)
[2020-06-21] MEDS: PANTOPRAZOLE SODIUM 40 MG/VIAL (PROTONIX) IVP SCH (08:19)
[2020-06-21] MEDS: levETIRAcetam 500 MG TABLET PO SCH (08:19)
[2020-06-21] MEDS: CEFEPIME 0.5 GM in D5W 50 ML IV SCH (09:04)
--- NOTE | 2020-06-21 10:08 | NUR ---
Gusset Ripper: D/C planning follow u FILE KEEPER called Rosa at [facility], . She asked if pt. needed a low air loft mattress. FILE KEEPER called and spoke to Rn who confirmed the type of mattress. Rn will also reach Dr. Sarah to get a D/C order FILE KEEPER called Rosa back , details about bed given. [facility] bed will be 104 A. If there is a D/C order it will be sometime after lunch. FILE KEEPER will keep her informed.
--- NOTE | 2020-06-21 10:22 | NUR ---
Notes Patient is sleeping in bed at this time. No resp distress noted. Breathing is even and unlabored. No signs of pain at this time. Will continue to monitor.
--- NOTE | 2020-06-21 11:10 | NUR ---
PAGED THE GROUP OF DR KIMBLE, DR GUAJARDO METALIZING MACHINE OPERATOR AUTOMATIC TO ASK THE GROUP TO FOLLOW THIS PT AT [facility].
--- NOTE | 2020-06-21 11:14 | NUR ---
CHARLIE TORRES AED TRAINER DR CHI WAS CALLED, RE: CLEARANCE TO DC BACK TO [facility]. SPOKE TO ANITHA.
[2020-06-21 11:34] LABS: ERYTHROCYTE SEDIMENTATION RATE 20 MM/HR (0-20)
--- NOTE | 2020-06-21 12:00 | NUR ---
Notes/Central Line Dressing Change Patient is laying in bed, resting at this time. No resp distress noted. Breathing is even and unlabored. Pt was given [place] 5-325 mg at 1145 for c/o pain, tolerated well. Nurse also completed central line dressing on left upper neck, tolerated well. All needs met. Safety and fall precautions in place. Will continue to monitor.
[2020-06-21] MEDS: metroNIDAZOLE 500 mg/NS 100 ML IV SCH (12:12)
[2020-06-21 12:15] VITALS: BP_SYST 104
[2020-06-21] MEDS ORDERED: CEFE1PIG3 IV (12:53)
[2020-06-21 12:55] VITALS: BP_SYST 110
[2020-06-21] MEDS ORDERED: FLAPM500 IV (12:55)
[2020-06-21] MEDS: FLU VACC QS2020-21(65UP)/PF 0.7 ML/SYRINGE I.M. PRN (13:15)
[2020-06-21 14:16] VITALS: BP_SYST 106
--- NOTE | 2020-06-21 14:45 | NUR ---
Called and gave report to FRANCISCO Orr at [facility]
--- NOTE | 2020-06-21 15:00 | NUR ---
D/C Patient Patient given medication reconciliation form and D/C instructions. DISCHARGE TO [facility]. Exit Care provided. Patient verbalized understanding. MD discussed with patient the results and treatment provided. Patient in stable condition, ID band removed. IV catheter removed, intact and dressing applied, no active bleeding. Pt discharged with central line, coronado catheter, and flexiseal. Patient educated on pain management. All belongings sent with patient.
== END 2020-06-21 14:55 | DRG 853 ==
LOC: SED 20:20 → SIC 22:31 → STU 06-18 22:29
PROVIDERS: ADMIT Preventive Medicine Preventive Medicine/Occupational Environmental Medicine; ATTEND Preventive Medicine Preventive Medicine/Occupational Environmental Medicine
PROC: 02HV33Z Insertion of Infusion Device into Superior Vena Cava, Percutaneous Approach (ICD-10-PCS; 2020-05-30)
PROC: B548ZZA Ultrasonography of Superior Vena Cava, Guidance (ICD-10-PCS; 2020-05-30)
PROC: B548ZZA Ultrasonography of Superior Vena Cava, Guidance (ICD-10-PCS; 2020-05-30)
PROC: 02HV33Z Insertion of Infusion Device into Superior Vena Cava, Percutaneous Approach (ICD-10-PCS; 2020-05-30)
PROC: 04HY33Z Insertion of Infusion Device into Lower Artery, Percutaneous Approach (ICD-10-PCS; 2020-05-30)
PROC: 5A1955Z Respiratory Ventilation, Greater than 96 Consecutive Hours (ICD-10-PCS; principal; 2020-05-31)
PROC: 0BH17EZ Insertion of Endotracheal Airway into Trachea, Via Natural or Artificial Opening (ICD-10-PCS; 2020-05-31)
PROC: 5A09357 Assistance with Respiratory Ventilation, Less than 24 Consecutive Hours, Continuous Positive Airway Pressure (ICD-10-PCS; 2020-05-31)
PROC: 02HV33Z Insertion of Infusion Device into Superior Vena Cava, Percutaneous Approach (ICD-10-PCS; 2020-06-02)
PROC: 30233N1 Transfusion of Nonautologous Red Blood Cells into Peripheral Vein, Percutaneous Approach (ICD-10-PCS; 2020-06-05)
PROC: 0X6 Anatomical Regions, Upper Extremities, Detachment (ICD-10-PCS; 2020-06-15)
PROC: 30233R1 Transfusion of Nonautologous Platelets into Peripheral Vein, Percutaneous Approach (ICD-10-PCS; 2020-06-15)
DX: A41.9 Sepsis, unspecified organism (principal); R65.21 Severe sepsis with septic shock; E43 Unspecified severe protein-calorie malnutrition; G92 Toxic encephalopathy; I21.A1 Myocardial infarction type 2; I26.99 Other pulmonary embolism without acute cor pulmonale; J69.0 Pneumonitis due to inhalation of food and vomit; J96.21 Acute and chronic respiratory failure with hypoxia; N17.0 Acute kidney failure with tubular necrosis; D61.818 Other pancytopenia; D62 Acute posthemorrhagic anemia; L03.113 Cellulitis of right upper limb; D68.9 Coagulation defect, unspecified; E87.0 Hyperosmolality and hypernatremia; E87.1 Hypo-osmolality and hyponatremia; E87.2 Acidosis; K92.2 Gastrointestinal hemorrhage, unspecified; M62.82 Rhabdomyolysis; E11.52 Type 2 diabetes mellitus with diabetic peripheral angiopathy with gangrene; Z99.11 Dependence on respirator [ventilator] status; D69.59 Other secondary thrombocytopenia; E11.22 Type 2 diabetes mellitus with diabetic chronic kidney disease; E11.649 Type 2 diabetes mellitus with hypoglycemia without coma; E11.65 Type 2 diabetes mellitus with hyperglycemia; E83.51 Hypocalcemia; E83.52 Hypercalcemia; E87.5 Hyperkalemia; E87.6 Hypokalemia; F15.10 Other stimulant abuse, uncomplicated; E83.39 Other disorders of phosphorus metabolism; I99.8 Other disorder of circulatory system; I12.9 Hypertensive chronic kidney disease with stage 1 through stage 4 chronic kidney disease, or unspecified chronic kidney disease; K74.60 Unspecified cirrhosis of liver; I95.9 Hypotension, unspecified; M72.9 Fibroblastic disorder, unspecified; N18.9 Chronic kidney disease, unspecified; Z89.212 Acquired absence of left upper limb below elbow; Z88.8 Allergy status to other drugs, medicaments and biological substances
CPT/HCPCS: 36415; 36600; 70450-TC; 71045; 73090; 80048; 80053; 80074; 80202-TC; 80307; 81000-TC; 82272; 82533; 82550-TC; 82553-TC; 82607; 82728; 82746; 82803-TC; 82962; 83010; 83540-TC; 83550-TC; 83605; 83615-TC; 83735-TC; 84100-TC; 84132-TC; 84484; 85007; 85025; 85027; 85044-TC; 85379; 85384-TC; 85610-TC; 85651-TC; 85730-TC; 86022; 86140; 86886; 86900; 86901; 86920; 86945-TC; 87040-TC; 87070-TC; 87081; 87086; 87205-TC; 87230-TC; 88307; 92610-GN; 93005; 93306; 93923; 93970; 94002; 94003; 94640; 94660; 94760; 96365; 96375; 96376; 97163; 99291; 99292; A6209; C1751; C1887; C9113; G0378; G0482; J0610; J0692; J0696; J1120; J1170; J1450; J1644; J1940; J2001; J2020; J2060; J2185; J2270; J2370; J2543; J2704; J3010; J3370; J3465; J3475; J3480; J3490; J7030; J7040; J7042; J7050; J7060; J7120; J7512; P9021; P9034; U0003

== ENCOUNTER 2022-11-16 14:34 | Inpatient (IN) | payer OTHER ==
[2022-11-16] VITALS (7 sets, daily range): BP systolic 78–133
[~2022-11-16] VITALS: Ht 167.6 cm; Wt 68.0 kg
[~2022-11-16 14:34] MED LIST changes: +CEFE1PIG3 IV; +FLAPM500 IV; +LEVE500T21 PO; -LEVE500T53 PO
[2022-11-16 15:37] LABS: INR 1.1 (0.8-1.2); PROTHROMBIN TIME 10.9 SECS (9.5-12.5)
[2022-11-16 15:39] LABS: ANION GAP 10 (5-15); CALCIUM 8.7 mg/dL (8.4-11.0); CHLORIDE 105 mmol/L (98-107); GFR AFRICAN AMERICAN 80 mL/min (>90); GLUCOSE 122 mg/dL (70-99); UREA NITROGEN, BLOOD 21 mg/dL (8-21)
[2022-11-16 15:49] LABS: BASOPHILS % (AUTO) 0.4 % (0.0-2.0); EOSINOPHILS # (AUTO) 0.1 K/uL (0.0-0.4); HEMATOCRIT 38.1 % (36-48); HEMOGLOBIN 12.7 g/dL (12.0-16.0); LYMPHOCYTES # (AUTO) 0.7 K/uL (1.0-5.5); MEAN CORPUSCULAR HEMOGLOBIN 30 pg (27-31); MEAN CORPUSCULAR HGB CONC 34 % (32-36); MEAN CORPUSCULAR VOLUME 91 fL (79.0-98.0); MONOCYTES # (AUTO) 0.3 K/uL (0.0-1.0); MONOCYTES % (AUTO) 6.1 % (1.7-9.3); NEUTROPHILS # (AUTO) 4.5 K/uL (1.8-7.7); NEUTROPHILS % (AUTO) 80.5 % (40.0-70.0); PLATELET COUNT (AUTO) 138 K/uL (130-430); RED CELL DISTRIBUTION WIDTH 14.8 % (9.0-15.0); WHITE BLOOD COUNT (AUTO) 5.5 K/uL (4.8-10.8)
[2022-11-16 15:56] LABS: ACETAMINOPHEN 4 ug/mL (1-30); ALANINE AMINOTRANSFERASE 17 U/L (12-78); ALBUMIN 3.1 g/dL (3.4-4.8); ALCOHOL, BLOOD 5 mg/dL (<10); ASPARTATE AMINOTRANSFERASE 22 U/L (10-37); TOTAL BILIRUBIN 0.5 mg/dL (0.0-1.0)
[2022-11-16] MEDS ORDERED: NALOXONE HCL 2 MG/2 ML SYR IVP ONE (16:15)
[2022-11-16 16:18] LABS: BILIRUBIN,URINE NEGATIVE (NEGATIVE); BLOOD, URINE 3+ (NEGATIVE); CLARITY/URINE CLOUDY (CLEAR); COLOR,URINE YELLOW (YELLOW); GLUCOSE,URINE NEGATIVE (NEGATIVE); KETONES,URINE NEGATIVE (NEGATIVE); LEUKOCYTE ESTERASE ,URINE 1+ (NEGATIVE); NITRITE, URINE NEGATIVE (NEGATIVE); PH,URINE 5.5 (5.0-8.0); PROTEIN URINE 2+ (NEGATIVE); UROBILINOGEN,URINE 0.2 (0.2-1.0)
[2022-11-16 16:22] LABS: CKMB RELATIVE INDEX 1.2 (0.0-2.9); CREATINE KINASE MB 4.2 ng/mL (0-3.6)
[2022-11-16 16:40] LABS: BARBITURATE, URINE NEGATIVE (NEG <=200); BENZODIAZEPINE, URINE POSITIVE (NEG <=150); CANNABINOID, URINE NEGATIVE (NEG <=50); COCAINE, URINE NEGATIVE (NEG <=150); METHAMPHETAMINES SCREEN,URINE NEGATIVE (NEG <=500); OPIATE, URINE POSITIVE (NEG <=100); PHENCYCLIDINE SCREEN,URINE NEGATIVE (NEG <=25); UR TRICYCLIC ANTIDEPRESSANTS NEGATIVE (NEG <=300); URINE AMPHETAMINE NEGATIVE (NEG <=500); URINE METHADONE NEGATIVE (NEG <=200); URINE OXYCODONE SCREEN NEGATIVE (NEG <=100); URINE PROPOXYPHENE SCREEN NEGATIVE (NEG <=300)
[2022-11-16 16:53] LABS: BACTERIA,URINE MODERATE /HPF (None Seen); MUCUS,URINE 2+ /LPF (None Seen); RBC,URINE 50-80 /HPF (0-3); WBC,URINE >100 /HPF (0-3)
[2022-11-16 17:26] LABS: ACETONE, SERUM NEGATIVE (NEGATIVE)
[2022-11-16] MEDS: D5LR 1,000 ML IV SCH (18:41)
[2022-11-16] MEDS ORDERED: PIPERACILLIN/TAZOBACTAM 3.375 GM/VIAL (ZOSYN) IV ONE (18:42)
[2022-11-16] MEDS: PIPERACILLIN/TAZO 3.375/DEX-IS 50 ML IV SCH ×2 (19:40→23:31)
[2022-11-16] MEDS ORDERED: NACL 0.9% 2,000 ML IV ONE (19:45)
[2022-11-16] MEDS ORDERED: HYDROcodone/ACETAMIN 5-325 MG TAB (NORCO/ VICODIN) PO PRN (20:15)
[2022-11-16] MEDS ORDERED: NALOXONE HCL 0.4 MG/ML AMP (NARCAN) IVP PRN (20:15)
[2022-11-16] MEDS ORDERED: NACL 0.9% 1,000 ML IV ONE (20:15)
[2022-11-16] MEDS ORDERED: ACETAMINOPHEN PO SCH (21:00)
[2022-11-16] MEDS ORDERED: OXYBUTYNIN CHLORIDE 5 MG XL TAB PO SCH (21:00)
[2022-11-16] MEDS: oxyBUTYnin chloride 5 MG TABLET PO SCH (21:00)
[2022-11-16] MEDS: levETIRAcetam 500 MG TABLET PO SCH (21:00)
[2022-11-16] MEDS: PANTOPRAZOLE SODIUM 40 MG TAB PO SCH (21:00)
[2022-11-16] MEDS ORDERED: HYDROCODONE PO SCH (21:00)
[2022-11-16] MEDS: NOREPINEPHRINE BITARTRATE 4 MG in NS 246 ML IV PRN (21:54)
[2022-11-17] VITALS (24 sets, daily range): BP systolic 95–145
[2022-11-17] MEDS: LORazepam 2 MG/ML VIAL IVP PRN (01:14)
[2022-11-17] MEDS: PANTOPRAZOLE SODIUM 40 MG TAB PO SCH ×2 (01:16→21:12)
[2022-11-17] MEDS: oxyBUTYnin chloride 5 MG TABLET PO SCH ×2 (01:17→21:10)
[2022-11-17] MEDS: levETIRAcetam 500 MG TABLET PO SCH ×2 (01:17→21:10)
[2022-11-17] MEDS: D5LR 1,000 ML IV SCH ×3 (06:00→23:28)
[2022-11-17] MEDS: PIPERACILLIN/TAZO 3.375/DEX-IS 50 ML IV SCH ×4 (06:02→23:29)
[2022-11-17 06:14] LABS: BASOPHILS # (AUTO) 0.1 K/uL (0.0-0.2); BASOPHILS % (AUTO) 1.1 % (0.0-2.0); EOSINOPHILS # (AUTO) 0.3 K/uL (0.0-0.4); EOSINOPHILS % (AUTO) 4.6 % (0.0-4.0); HEMATOCRIT 37.9 % (36-48); HEMOGLOBIN 12.5 g/dL (12.0-16.0); LYMPHOCYTES # (AUTO) 2.1 K/uL (1.0-5.5); LYMPHOCYTES % (AUTO) 31.1 % (20.5-51.5); MEAN CORPUSCULAR HEMOGLOBIN 30 pg (27-31); MEAN CORPUSCULAR HGB CONC 33 % (32-36); MEAN CORPUSCULAR VOLUME 91 fL (79.0-98.0); MONOCYTES # (AUTO) 0.6 K/uL (0.0-1.0); MONOCYTES % (AUTO) 8.5 % (1.7-9.3); NEUTROPHILS # (AUTO) 3.6 K/uL (1.8-7.7); NEUTROPHILS % (AUTO) 54.7 % (40.0-70.0); PLATELET COUNT (AUTO) 176 K/uL (130-430); RED BLOOD CELL COUNT(AUTO) 4.16 MIL/uL (4.2-6.2); RED CELL DISTRIBUTION WIDTH 14.5 % (9.0-15.0); WHITE BLOOD COUNT (AUTO) 6.6 K/uL (4.8-10.8)
[2022-11-17 07:13] LABS: ALBUMIN 2.8 g/dL (3.4-4.8); CALCIUM 8.6 mg/dL (8.4-11.0); CREATININE 0.63 mg/dL (0.55-1.30); FREE T4 (FREE THYROXINE) 1.2 ng/dL (0.6-1.6); THYROID STIMULATING HORMONE 0.79 uIu/mL (0.34-4.82)
[2022-11-17 10:58] LABS: BILIRUBIN,URINE NEGATIVE (NEGATIVE); BLOOD, URINE 3+ (NEGATIVE); COLOR,URINE YELLOW (YELLOW); GLUCOSE,URINE NEGATIVE (NEGATIVE); KETONES,URINE NEGATIVE (NEGATIVE); LEUKOCYTE ESTERASE ,URINE 2+ (NEGATIVE); NITRITE, URINE NEGATIVE (NEGATIVE); PROTEIN URINE 2+ (NEGATIVE); UROBILINOGEN,URINE 0.2 (0.2-1.0)
[2022-11-17 11:01] LABS: CLARITY/URINE HAZY (CLEAR)
[2022-11-17 11:24] LABS: BACTERIA,URINE FEW /HPF (None Seen); RBC,URINE 20-50 /HPF (0-3); WBC,URINE 50-80 /HPF (0-3)
[2022-11-17] MEDS ORDERED: METHYLPREDNISOLONE SOD SUCC 40 MG/ML VIAL IVP ONE (11:30)
[2022-11-17] MEDS ORDERED: MIDODRINE HCL 5 MG TABLET (PROAMATINE) PO ONE (11:30)
[2022-11-17] MEDS: NOREPINEPHRINE BITARTRATE 4 MG in NS 246 ML IV PRN (14:50)
[2022-11-17] MEDS: ACETAMINOPHEN 325 MG TABLET PO PRN (17:32)
[2022-11-17] MEDS: METHYLPREDNISOLONE SOD SUCC 40 MG/ML VIAL IVP SCH (21:08)
[2022-11-17] MEDS: BACLOFEN 10 MG TABLET PO SCH (21:09)
[2022-11-17] MEDS: MIDODRINE HCL 5 MG TABLET (PROAMATINE) PO SCH (21:11)
[2022-11-18] VITALS (21 sets, daily range): BP systolic 101–154
[2022-11-18] MEDS: ACETAMINOPHEN 325 MG TABLET PO PRN ×3 (01:23→19:41)
[2022-11-18 05:26] LABS: BASOPHILS % (AUTO) 0.2 % (0.0-2.0); HEMOGLOBIN 12.5 g/dL (12.0-16.0); LYMPHOCYTES # (AUTO) 1.2 K/uL (1.0-5.5); LYMPHOCYTES % (AUTO) 21.1 % (20.5-51.5); MEAN CORPUSCULAR HEMOGLOBIN 30 pg (27-31); MEAN CORPUSCULAR HGB CONC 33 % (32-36); MEAN CORPUSCULAR VOLUME 91 fL (79.0-98.0); MONOCYTES # (AUTO) 0.2 K/uL (0.0-1.0); MONOCYTES % (AUTO) 4.2 % (1.7-9.3); NEUTROPHILS # (AUTO) 4.2 K/uL (1.8-7.7); NEUTROPHILS % (AUTO) 74.5 % (40.0-70.0); PLATELET COUNT (AUTO) 166 K/uL (130-430); RED BLOOD CELL COUNT(AUTO) 4.17 MIL/uL (4.2-6.2); RED CELL DISTRIBUTION WIDTH 14.8 % (9.0-15.0); WHITE BLOOD COUNT (AUTO) 5.7 K/uL (4.8-10.8)
[2022-11-18 05:35] LABS: ALBUMIN 2.7 g/dL (3.4-4.8); CALCIUM 8.6 mg/dL (8.4-11.0); CREATININE 0.77 mg/dL (0.55-1.30); TOTAL BILIRUBIN 0.6 mg/dL (0.0-1.0)
[2022-11-18] MEDS: PIPERACILLIN/TAZO 3.375/DEX-IS 50 ML IV SCH ×3 (06:17→17:54)
[2022-11-18] MEDS: HYDROcodone/ACETAMIN 5-325 MG TAB (NORCO/ VICODIN) PO PRN ×3 (07:05→21:12)
[2022-11-18] MEDS: METHYLPREDNISOLONE SOD SUCC 40 MG/ML VIAL IVP SCH ×2 (08:04→21:05)
[2022-11-18] MEDS: oxyBUTYnin chloride 5 MG TABLET PO SCH ×2 (08:04→21:09)
[2022-11-18] MEDS: levETIRAcetam 500 MG TABLET PO SCH ×2 (08:04→21:09)
[2022-11-18] MEDS: PANTOPRAZOLE SODIUM 40 MG TAB PO SCH ×2 (08:04→21:10)
[2022-11-18] MEDS: BACLOFEN 10 MG TABLET PO SCH ×3 (08:04→21:07)
[2022-11-18] MEDS: MIDODRINE HCL 5 MG TABLET (PROAMATINE) PO SCH ×2 (08:05→21:10)
[2022-11-18] MEDS: LORazepam 2 MG/ML VIAL IVP PRN ×2 (08:37→16:24)
[2022-11-18] MEDS: D5LR 1,000 ML IV SCH ×2 (11:57→21:04)
[2022-11-18] MEDS ORDERED: POLYETHYLENE GLYCOL 3350, 17 GM/ POWD.PACK PO ONE (14:00)
[2022-11-18] MEDS: MUPIROCIN 2% TOPICAL OINTMENT 22 GM NS SCH (21:06)
[2022-11-18] MEDS: traZODone HCL 50 MG TABLET (DESYREL) PO SCH (21:08)
[2022-11-19 00:20] VITALS: BP_SYST 153
[2022-11-19] MEDS: ACETAMINOPHEN 325 MG TABLET PO PRN (00:24)
[2022-11-19] MEDS: LORazepam 2 MG/ML VIAL IVP PRN ×4 (00:28→21:48)
[2022-11-19] MEDS: PIPERACILLIN/TAZO 3.375/DEX-IS 50 ML IV SCH ×4 (00:29→17:28)
[2022-11-19] MEDS: D5LR 1,000 ML IV SCH (00:29)
[2022-11-19] MEDS: HYDROcodone/ACETAMIN 5-325 MG TAB (NORCO/ VICODIN) PO PRN ×3 (02:57→16:41)
[2022-11-19 07:52] VITALS: BP_SYST 136
[2022-11-19] MEDS: METHYLPREDNISOLONE SOD SUCC 40 MG/ML VIAL IVP SCH (09:18)
[2022-11-19] MEDS: levETIRAcetam 500 MG TABLET PO SCH ×2 (09:46→21:46)
[2022-11-19] MEDS: POLYETHYLENE GLYCOL 3350, 17 GM/ POWD.PACK PO SCH (09:46)
[2022-11-19] MEDS: PANTOPRAZOLE SODIUM 40 MG TAB PO SCH ×2 (09:48→21:47)
[2022-11-19] MEDS: MIDODRINE HCL 5 MG TABLET (PROAMATINE) PO SCH (09:48)
[2022-11-19] MEDS: oxyBUTYnin chloride 5 MG TABLET PO SCH ×2 (09:48→21:46)
[2022-11-19] MEDS: BACLOFEN 10 MG TABLET PO SCH ×3 (09:48→21:46)
[2022-11-19] MEDS: MUPIROCIN 2% TOPICAL OINTMENT 22 GM NS SCH ×2 (09:57→21:49)
[2022-11-19 12:00] VITALS: BP_SYST 129
[2022-11-19] MEDS ORDERED: MIDODRINE HCL 5 MG TABLET (PROAMATINE) PO PRN (12:00)
[2022-11-19 17:23] VITALS: BP_SYST 114
[2022-11-19 21:00] VITALS: BP_SYST 135
[2022-11-19] MEDS: traZODone HCL 50 MG TABLET (DESYREL) PO SCH (21:46)
[2022-11-20 00:15] VITALS: BP_SYST 104
[2022-11-20] MEDS: PIPERACILLIN/TAZO 3.375/DEX-IS 50 ML IV SCH ×5 (00:50→23:38)
[2022-11-20] MEDS: HYDROcodone/ACETAMIN 5-325 MG TAB (NORCO/ VICODIN) PO PRN ×2 (06:24→13:29)
[2022-11-20 08:00] VITALS: BP_SYST 106
[2022-11-20] MEDS: POLYETHYLENE GLYCOL 3350, 17 GM/ POWD.PACK PO SCH (09:00)
[2022-11-20] MEDS: levETIRAcetam 500 MG TABLET PO SCH ×2 (09:51→22:39)
[2022-11-20] MEDS: BACLOFEN 10 MG TABLET PO SCH ×3 (09:51→22:37)
[2022-11-20] MEDS: oxyBUTYnin chloride 5 MG TABLET PO SCH ×2 (09:51→22:37)
[2022-11-20] MEDS: PANTOPRAZOLE SODIUM 40 MG TAB PO SCH ×2 (09:51→22:39)
[2022-11-20] MEDS: MUPIROCIN 2% TOPICAL OINTMENT 22 GM NS SCH ×2 (09:52→22:32)
[2022-11-20] MEDS: LORazepam 2 MG/ML VIAL IVP PRN ×3 (11:07→22:36)
[2022-11-20 12:00] VITALS: BP_SYST 113
[2022-11-20 20:30] VITALS: BP_SYST 117
[2022-11-20] MEDS: traZODone HCL 50 MG TABLET (DESYREL) PO SCH (22:38)
[2022-11-21 00:26] VITALS: BP_SYST 110
[2022-11-21] MEDS: PIPERACILLIN/TAZO 3.375/DEX-IS 50 ML IV SCH ×2 (06:45→15:16)
[2022-11-21] MEDS: HYDROcodone/ACETAMIN 5-325 MG TAB (NORCO/ VICODIN) PO PRN ×3 (06:46→20:57)
[2022-11-21] MEDS: POLYETHYLENE GLYCOL 3350, 17 GM/ POWD.PACK PO SCH (09:00)
[2022-11-21] MEDS: MUPIROCIN 2% TOPICAL OINTMENT 22 GM NS SCH (09:00)
[2022-11-21] MEDS: BACLOFEN 10 MG TABLET PO SCH ×2 (10:32→15:15)
[2022-11-21] MEDS: oxyBUTYnin chloride 5 MG TABLET PO SCH (10:32)
[2022-11-21] MEDS: levETIRAcetam 500 MG TABLET PO SCH (10:32)
[2022-11-21] MEDS: PANTOPRAZOLE SODIUM 40 MG TAB PO SCH (10:33)
[2022-11-21 13:08] VITALS: BP_SYST 116
[2022-11-21 17:40] VITALS: BP_SYST 122
[2022-11-21] MEDS ORDERED: AMPICILLIN SODIUM 1 GM in NS 50 ML IV SCH (18:00)
[2022-11-21 19:35] VITALS: BP_SYST 122
== END 2022-11-21 21:00 | DRG 871 ==
LOC: SED 14:34 → SIC 16:49 → SMU 11-18 20:35 → STU 11-18 20:50 → SMU 11-20 22:09
PROVIDERS: ADMIT Internal Medicine; ATTEND Internal Medicine
DX: A41.9 Sepsis, unspecified organism (principal); G92.9 Unspecified toxic encephalopathy; R65.21 Severe sepsis with septic shock; N39.0 Urinary tract infection, site not specified; T50.901A Poisoning by unspecified drugs, medicaments and biological substances, accidental (unintentional), initial encounter; F19.10 Other psychoactive substance abuse, uncomplicated; K21.9 Gastro-esophageal reflux disease without esophagitis; G35 Multiple sclerosis; E86.0 Dehydration; R53.81 Other malaise; Z20.822 Contact with and (suspected) exposure to COVID-19; B95.2 Enterococcus as the cause of diseases classified elsewhere; F41.9 Anxiety disorder, unspecified; R56.9 Unspecified convulsions; Z88.8 Allergy status to other drugs, medicaments and biological substances; Z79.899 Other long term (current) drug therapy; Y92.89 Other specified places as the place of occurrence of the external cause
CPT/HCPCS: 36415; 70450-TC; 71045; 72125-TC; 76376; 80053; 80307; 81000; 82009; 82140; 82550; 82553; 83605; 83880; 84439; 84443; 84484; 85025; 85610-TC; 85730-TC; 86140; 87040; 87081; 87086; 87186-TC; 93005; 96361; 96374; 97110-GP; 97112-GP; 97163-GP; 97530-GP; 99285; G0480; G0481; G0482; J0290; J1030; J2060; J2310; J2543; J7050